=== PATIENT | female | born 1955 | race Caucasian/White ===

== ENCOUNTER 2017-04-10 11:11 | Inpatient (IN) | payer MEDICARE, OTHER ==
[~2017-04-10] VITALS: Ht 158.8 cm; Wt 47.7 kg
[~2017-04-10 11:11] MED LIST: FLUT1DIS3 INH; Ipratropium Bromide NEB; MIRT15TA7 PO; PRED20TA GT; RACE1VIA IH; SERT100T PO; [UNRECOGNIZED DRUG - CODE] MC
--- NOTE | 2017-04-10 11:11 | NUR ---
BBRA FROM HOME FOR WEAKNESS AND HYPOTENSIVE THIS AM. NAD NOTED. PT AAO X4. PLACED IN MONITOR AND GOWN. DR HOUSE AT BEDSIDE FOR EVAL.
[2017-04-10 11:27] LABS: HEMOGLOBIN 13.7 g/dL (11.5-14.8); MEAN CORPUSCULAR HGB CONC 34 g/dl (31.0-36.0); RED BLOOD CELL COUNT(AUTO) 4.55 MIL/uL (4.0-5.2)
[2017-04-10 11:29] LABS: BASOPHILS % (AUTO) 2.4 % (0.0-2.0); HEMATOCRIT 41 % (33-45); LYMPHOCYTES # (AUTO) 1.1 /CMM (0.8-4.8); LYMPHOCYTES % (AUTO) 2.5 % (20.0-44.0); MEAN CORPUSCULAR HEMOGLOBIN 30 PG (26.0-33.0); MEAN CORPUSCULAR VOLUME 89 fL (82-100); MONOCYTES # (AUTO) 1.2 /CMM (0.1-1.30); MONOCYTES % (AUTO) 2.9 % (2.0-12.0); NEUTROPHILS % (AUTO) 92.2 % (43.0-81.0); PLATELET COUNT (AUTO) 588 /CMM (150-450); RDW COEFFICIENT OF VARIATION 13.1 (11.5-15.0)
[2017-04-10] MEDS ORDERED: IV NS 0.9% 1,000 ML BAG IV ONE (11:30)
[2017-04-10 11:31] LABS: WHITE BLOOD COUNT (AUTO) 42.3 K/uL (4.3-11.0)
[2017-04-10 11:45] LABS: CALCIUM, SERUM 7.7 mg/dL (8.5-10.1); CARBON DIOXIDE 38 mmol/L (21-32); CHLORIDE 97 mmol/L (98-107); CREATININE 0.6 mg/dL (0.6-1.3); GLUCOSE 114 mg/dL (74-106); POTASSIUM 3.5 mmol/L (3.5-5.1); SODIUM SERUM 137 mmol/L (136-145); UREA NITROGEN, BLOOD 18 mg/dL (7-18)
[2017-04-10 11:46] LABS: INR 1.15 (0.87-1.13); PROTHROMBIN TIME 12.1 SECS (9.5-12.7)
[2017-04-10 11:50] LABS: TROPONIN I < 0.017 ng/mL (0.00-0.056)
[2017-04-10 12:02] LABS: ALANINE AMINOTRANSFERASE 20 U/L (12-78); ALBUMIN 1.6 g/dL (3.4-5.0); ALKALINE PHOSPHATASE 116 U/L (46-116); ASPARTATE AMINOTRANSFERASE 22 U/L (15-37); BILIRUBIN,DIRECT 0.1 mg/dL (0.0-0.2); BILIRUBIN,TOTAL 0.5 mg/dL (0.2-1.0); TOTAL PROTEIN, SERUM 5.4 g/dL (6.4-8.2)
[2017-04-10 12:26] LABS: BAND % (MANUAL) 4 % (0.0-5.0); LYMPHOCYTES % (MANUAL) 4 % (16-48); METAMYELOCYTES % 1 % (0-0); MONOCYTES % (MANUAL) 2 % (0-11.0); MYELOCYTES % 3 % (0-0); NEUTROPHILS % (MANUAL) 86 (42-76)
[2017-04-10] MEDS ORDERED: IV NS 0.9% 1,000 ML IV PRN (12:28)
[2017-04-10] MEDS ORDERED: VANCOMYCIN 1 GM in IV D5W 250 ML IV SCH (12:30)
[2017-04-10] MEDS ORDERED: ACETAMINOPHEN 325 MG TABLET PO PRN ×2 (12:30→14:30)
[2017-04-10] MEDS ORDERED: MAGNESIUM HYDROXIDE 30 ML UDC PO PRN ×2 (12:30→14:30)
[2017-04-10] MEDS ORDERED: Z GUARD REMEDY 2 OZ OINT TP PRN (12:30)
[2017-04-10] MEDS ORDERED: PIPERACILLIN /TAZOBACTAM 3.375 G in IV D5W 50 ML IV ONE (12:30)
[2017-04-10] MEDS ORDERED: RACEPINEPHRINE HCL 2.25% NEB 0.5 ML VIAL.NEB IH PRN (12:30)
[2017-04-10] MEDS ORDERED: ZOLPIDEM TARTRATE 5 MG TABLET PO PRN ×2 (12:30→14:30)
[2017-04-10] MEDS ORDERED: ONDANSETRON HCL/PF 4 MG/2 ML VIAL IVP PRN ×2 (12:30→14:30)
[2017-04-10] MEDS ORDERED: VANCOMYCIN 1 GM in IV D5W 250 ML IV ONE (12:30)
[2017-04-10] MEDS ORDERED: IV NS 0.9% 1,000 ML IV ONE (12:30)
[2017-04-10] MEDS ORDERED: HYDROCODONE/APAP 5/325MG 1 EACH TABLET PO PRN ×2 (12:30→14:30)
[2017-04-10] MEDS ORDERED: MAG HYDROX/AL HYDROX/SIMETH 30 ML UDC PO PRN ×2 (12:30→14:30)
[2017-04-10] MEDS ORDERED: ALBUTEROL FS 2.5 MG/0.5 ML VIAL.NEB NEB PRN ×2 (13:00→14:30)
[2017-04-10] MEDS ORDERED: methylPREDNISolone SOD SUCC 125 MG/2ML VIAL IV SCH (13:00)
[2017-04-10] MEDS ORDERED: IPRATROPIUM NEB FS 0.5 MG/2.5 ML AMPUL.NEB NEB PRN (13:00)
[2017-04-10] MEDS ORDERED: IPRATROPIUM NEB FS 0.5 MG/2.5 ML AMPUL.NEB NEB SCH (13:30)
[2017-04-10] MEDS ORDERED: RACEPINEPHRINE HCL 2.25% NEB 0.5 ML VIAL.NEB IH SCH (13:30)
[2017-04-10] MEDS ORDERED: ALBUTEROL FS 2.5 MG/0.5 ML VIAL.NEB NEB SCH ×2 (13:30→14:30)
--- NOTE | 2017-04-10 13:34 | NUR ---
PATIENT WILL BE ADMITTED INTO ROOM 119-2. [facility]
--- NOTE | 2017-04-10 13:44 | NUR ---
116-2 [facility]
--- NOTE | 2017-04-10 13:47 | NUR ---
TD/RN REPORT FROM ER REPORT RECEIVED FROM ER NURSE SMITH FOR PT TO BE ADMITTED FOR SYNCOPE UNDER THE CARE OF DR. HANSON. AWAITING FOR PT'S ARRIVAL.
--- NOTE | 2017-04-10 13:47 | NUR ---
REPORT GIVEN TO RENARD PALENCIA FOR BETY
--- NOTE | 2017-04-10 14:50 | NUR ---
TD/RN ADMITTED TO [facility] - ROOM 116#2 PT ARRIVED VIA GURNEY FROM ER. PT A/O X 4, DENIES PAIN, NO ACUTE CHANGE OF CONDITION NOTED. PT PLACED ON 3L O2 VIA N/C SATURATING @ 90%, LUNG SOUNDS VERY DIMINISHED WITH NOTED USE OF ACCESSORY MUSCLE, BREATHING DEEPLY. TELE MONITORING NOTED WITH SINUS TACHY, HR 109. IV SITE FLUSHED, PATIENT WITH NO S/S OF INFECTION. PT ADMITTED FOR SYNCOPE UNDER THE CARE OF DR. HANSON. ADMISSION PROTOCOLS BEING PROCESSED, AWAITING FOR ADMITTING ORDERS. PT IS COMFORTABLE AT THIS TIME. CL WITHIN REACHED AND SAFETY MAINTAINED. ON GOING MONITORING.
[2017-04-10 15:00] VITALS: BP 108/66
[2017-04-10] MEDS: IV NS 0.9% 1,000 ML IV PRN (15:33)
[2017-04-10 16:00] VITALS: BP_SYST 107; BP_SYST 108; BP_SYST 112; BP_DIAS 66; BP_DIAS 67; BP_DIAS 68
[2017-04-10] MEDS: IPRATROPIUM NEB FS 0.5 MG/2.5 ML AMPUL.NEB NEB PRN (16:15)
[2017-04-10] MEDS ORDERED: FLUTICASONE/SALMETEROL DISKUS IH SCH ×2 (17:00)
[2017-04-10] MEDS: ENOXAPARIN SODIUM 40 MG/0.4 ML DISP.SYRIN SQ SCH (17:52)
[2017-04-10] MEDS: PIPERACILLIN /TAZOBACTAM 3.375 G in IV D5W 50 ML IV SCH ×2 (17:52→23:53)
[2017-04-10] MEDS ORDERED: IPRATROPIUM/ALBUTEROL INHALER IH SCH (18:00)
[2017-04-10] MEDS ORDERED: PIPERACILLIN /TAZOBACTAM 3.375 G in IV D5W 50 ML IV SCH (18:00)
[2017-04-10] MEDS ORDERED: FEE PK DOSING 1 MIN EA MC ONE (19:01)
--- NOTE | 2017-04-10 19:16 | NUR ---
TD/RN AM SHIFT END NOTES PT NOTED TO BE MORE RELAXED, NOT USING MUCH OF ACCESSORY MUSCLE FOR BREATHING. NO OTHER ACUTE DISTRESS NOTED SINCE PT WAS ADMITTED THIS AFTERNOON. ALL NEEDS MET. ENDORSED TO PM NURSE TO CONTINUE CARE. CL WITHIN REACHED AND SAFETY MAINTAINED.
[2017-04-10] MEDS: RACEPINEPHRINE HCL 2.25% NEB 0.5 ML VIAL.NEB IH SCH (19:59)
[2017-04-10 20:00] VITALS: BP 112/65
--- NOTE | 2017-04-10 20:00 | NUR ---
RN NOTES RECEIVED AWAKE, ALERT, ORIENTED X 3, RECEIVED FROM AM SHIFT ON NC AT 4 LPM, SATURATING 95%, VERBALIZES SHORTNESS OF BREATH BUT SAYS THIS IS BETTER THAN EARLIER, PIV FLUSHED NO S/SX INFILTRATION; PX MOVES BY SELF IN BED, HOB AT 40 ANGLE; DISCUSSED PLAN OF CARE, EDUCATED ON NEED FOR BREATHING TREATMENT AND ANTIBIOTICS.
--- NOTE | 2017-04-10 21:30 | NUR ---
RN NOTES REPORT TO MANOLO STEVENS RN FOR CONTINUITY OF CARE.
--- NOTE | 2017-04-10 21:30 | NUR ---
RN NOTES PX HAD 1 MOD LARGE DIARRHEA, CLEANED AND PERICARE RENDERED; CALLED DR FRANCISCA CESAR MADE HIM AWARE OF DIARRHEA EPISODE AND THAT PX HAD RECENTLY TAKEN ANTIBIOTICS. NEW ORDERS MADE.
[2017-04-10] MEDS ORDERED: CHOLESTYRAMINE/ASPARTAME 4 G/PKT PACKET PO SCH (22:00)
[2017-04-10] MEDS ORDERED: MIRTAZAPINE 15 MG TABLET PO SCH (22:00)
[2017-04-10] MEDS: MIRTAZAPINE 15 MG TABLET PO SCH (22:19)
[2017-04-10] MEDS ORDERED: CHOLESTYRAMINE/ASPARTAME 4 G/PKT PACKET ONE (22:25)
[2017-04-10] MEDS ORDERED: VANCOMYCIN HCL 125 MG/2.5 ML ORAL.SUSP ONE ×2 (23:53)
[2017-04-10] MEDS: VANCOMYCIN HCL 125 MG/2.5 ML ORAL.SUSP PO SCH (23:55)
[2017-04-11] VITALS: BP 132/80
[2017-04-11] MEDS: VANCOMYCIN 1 GM in IV D5W 250 ML IV SCH ×2 (00:19→13:16)
[2017-04-11] MEDS: RACEPINEPHRINE HCL 2.25% NEB 0.5 ML VIAL.NEB IH SCH ×4 (01:01→19:26)
[2017-04-11] MEDS: IPRATROPIUM NEB FS 0.5 MG/2.5 ML AMPUL.NEB NEB PRN ×6 (01:01→22:53)
[2017-04-11 04:00] VITALS: BP 115/55
--- NOTE | 2017-04-11 04:43 | NUR ---
RN NOTES 0440 O2 SATURATION 84% ON 4-5 LITER O2 VIA NC. PATIENT HAS HX COPD;MOUTH BREATHER. BREATHING TREATMENT GIVEN 0101; HR 100-105; SPOKE TO RT JUNIOR; WILL CHANGE TO SIMPLE MASK 5L O2. O2 SAT 88-89% ON SIMPLE MASK
[2017-04-11] MEDS: PIPERACILLIN /TAZOBACTAM 3.375 G in IV D5W 50 ML IV SCH ×3 (05:39→17:31)
[2017-04-11] MEDS: VANCOMYCIN HCL 125 MG/2.5 ML ORAL.SUSP PO SCH ×3 (05:39→17:31)
[2017-04-11] MEDS ORDERED: PANTOPRAZOLE 40 MG TABLET.DR PO SCH (07:30)
[2017-04-11 07:42] LABS: EOSINOPHILS % (AUTO) 0.1 % (0.0-6.0); HEMATOCRIT 41 % (33-45); HEMOGLOBIN 13.2 g/dL (11.5-14.8); LYMPHOCYTES # (AUTO) 1.4 /CMM (0.8-4.8); LYMPHOCYTES % (AUTO) 3.5 % (20.0-44.0); MEAN CORPUSCULAR HEMOGLOBIN 30 PG (26.0-33.0); MEAN CORPUSCULAR HGB CONC 33 g/dl (31.0-36.0); MEAN CORPUSCULAR VOLUME 92 fL (82-100); MONOCYTES # (AUTO) 1.5 /CMM (0.1-1.30); MONOCYTES % (AUTO) 3.7 % (2.0-12.0); NEUTROPHILS # (AUTO) 37.1 /CMM (1.8-8.9); NEUTROPHILS % (AUTO) 92.7 % (43.0-81.0); PLATELET COUNT (AUTO) 570 /CMM (150-450); RDW COEFFICIENT OF VARIATION 14.7 (11.5-15.0)
[2017-04-11 07:53] LABS: CALCIUM, SERUM 7.7 mg/dL (8.5-10.1); CREATININE 0.4 mg/dL (0.6-1.3); POTASSIUM 3.2 mmol/L (3.5-5.1)
[2017-04-11 08:00] VITALS: BP 101/69
--- NOTE | 2017-04-11 08:00 | NUR ---
TD/RN AM SHIFT INITIAL NOTES RECEIVED PT ASLEEP IN BED, AROUSEABLE. PT A/O X 4, DENIES ANY SYMPTOMS. NO ACUTE RESPIRATORY DISTRESS NOTED, NO FEVER. PT ON SIMPLE MASK WITH 9L OF O2, RESPIRATIONS UNLABORED, NOT USING ACCESSORY MUSCLE UNLIKE YESTERDAY, LUNG SOUNDS LESS DIMINISHED, PT VERBALIZED FEELING MUCH BETTER, BREATHING BETTER THAN YESTERDAY. ON TELE MONITORING WITH SINUS TACHY, HR 102. WITH ON GOING IV INFUSION OF NS @ 75CC/HR, IV SITE PATENT WITH NO S/S OF INFECTION. UPDATE DR. HANSON OF PT'S CONDITION LAST NIGHT, EXAMINED PT, AWARE OF DECREASED OF WBC 40, WITH NEW ORDER TO D/C QUESTRAN, NOTED AND CARRIED. PT IS COMFORTABLE, CL WITHIN REACHED. ON GOING MONITORING.
[2017-04-11] MEDS: SERTRALINE HCL 50 MG TABLET PO SCH (08:35)
[2017-04-11] MEDS: PANTOPRAZOLE 40 MG TABLET.DR PO SCH (08:36)
[2017-04-11] MEDS: methylPREDNISolone SOD SUCC 125 MG/2ML VIAL IV SCH (08:36)
[2017-04-11 09:28] LABS: BAND % (MANUAL) 1 % (0.0-5.0); EOSINOPHILS % (MANUAL) 1 % (0-4); LYMPHOCYTES % (MANUAL) 4 % (16-48); MONOCYTES % (MANUAL) 4 % (0-11.0); MYELOCYTES % 2 % (0-0); NEUTROPHILS % (MANUAL) 88 (42-76)
--- NOTE | 2017-04-11 09:30 | NUR ---
TD/RN ROUNDS - DR. RIVERA UPDATED PT'S CONDITION. PT SEEN & EXAMINED BY DR. RIVERA. NO NEW ORDERS RECEIVED AT THIS TIME. MONITORING CONTINUED.
[2017-04-11] MEDS: IV NS 0.9% 1,000 ML IV PRN (09:49)
--- NOTE | 2017-04-11 10:00 | NUR ---
TD/RN UA & CS URINE SPECIMEN COLLECTED VIA STRAIGHT CATHETERIZATION FOR UA & CS. LAB NOTIFIED FOR SPECIMEN PICK-UP.
[2017-04-11] MEDS ORDERED: POTASSIUM CHLORIDE 20 MEQ TAB.PRT.SR PO ONE (11:00)
[2017-04-11 11:41] LABS: APPEARANCE,URINE SL CLOUDY (CLEAR); BILIRUBIN,URINE NEGATIVE (NEGATIVE); BLOOD, URINE NEGATIVE Ery/uL (NEGATIVE); COLOR,URINE YELLOW (YELLOW); KETONES,URINE NEGATIVE (NEGATIVE); LEUKOCYTE ESTERASE ,URINE NEGATIVE (NEGATIVE); NITRITE, URINE NEGATIVE (NEGATIVE); PH,URINE 5.5 (5.0-8.0); PROTEIN,URINE NEGATIVE (NEGATIVE); UGLUCOSE NEGATIVE (NEGATIVE); UROBILINOGEN,URINE 0.2 EU/dL (0.2)
[2017-04-11 12:00] VITALS: BP 116/69
[2017-04-11 16:00] VITALS: BP 116/71
--- NOTE | 2017-04-11 17:00 | NUR ---
TD/RN AFTERNOON ROUNDS PT DESATURATES WHEN OFF O2 DOWN TO 85%, COMPLAINING ON SOB. ON 9L O2 VIA SIMPLE MASK. PM CARE PROVIDED, CLOSELY MONITORING.
[2017-04-11] MEDS: RACEPINEPHRINE HCL 2.25% NEB 0.5 ML VIAL.NEB IH PRN ×2 (17:08→22:53)
[2017-04-11] MEDS: LACTOBACILLUS RHAMNOSUS GG 1 EACH CAP.SPRINK PO SCH (17:31)
--- NOTE | 2017-04-11 18:59 | NUR ---
TD/RN SOB - STAT ABG PT COMPLAINT OF SOB, SATURATING @ 80s. STAT ABG ORDERED. RESPIRATORY THERAPIST CALLED IN, PT PLACED ON NON-REBREATHER MASK. CLOSELY MONITORING. Addendum: 04/11/17 at 1915 by KORY GONCALVES RN ADDENDUM: PT SATURATING IN THE HIGH 80s.
--- NOTE | 2017-04-11 19:10 | NUR ---
TD/RN AM SHIFT END NOTES ABG BEING DRAWN. PT ON NON-BREATHER MASK. NEEDS MET. PT ENDORSED TO PM NURSE TO CONTINUE CARE. CL WITHIN REACHED AND SAFETY MAINTAINED.
[2017-04-11 19:18] LABS: ABG BASE EXCESS 3.6 mmol/L; ABG OXYGEN SATURATION 98.4 % (92.0-98.5); ABG PCO2 61.1 mmHg (35.0-45.0); ABG PH 7.325 (7.350-7.450); ABG PO2 155.3 mmHg (75.0-100.0); COHb 0.6 % (0.5-1.5); MetHb 0.7 % (0.0-1.5); O2Hb 97.1 % (94.0-97.0); SITE, ABG Right Radial; VENT MODE, BG NRB
--- NOTE | 2017-04-11 21:00 | NUR ---
RN NOTE RECEIVED ABG FROM RESPIRATORY AND NOTIFIED DR FRANCISCA CESAR. DR CESAR ORDERED BIPAP AND ABG IN 30 MINUTES, ALSO STAT XRAY. READBACK ORDERS PERFORMED AND ORDERS PUT IN.
--- NOTE | 2017-04-11 22:00 | NUR ---
RN NOTE SPOKE WITH PT AND EXPLAINED THE USE OF BIPAP, BUT PT REFUSED. NOTIFIED RT TO FURTHER EXPLAIN USE OF BIPAP, BUT PT STILL REFUSED. NOTIFIED DR FRANCISCA CESAR. DR CESAR ORDERED ONE TIME DOSE OF LASIX 20MG IV AND SOLU-MEDROL 125MG IV. READBACK ORDERS PERFORMED AND ORDERS PUT IN.
[2017-04-11] MEDS: MIRTAZAPINE 15 MG TABLET PO SCH (22:11)
[2017-04-11] MEDS: ENOXAPARIN SODIUM 40 MG/0.4 ML DISP.SYRIN SQ SCH (22:12)
[2017-04-11] MEDS ORDERED: FUROSEMIDE 20 MG/2 ML VIAL ONE (23:14)
[2017-04-11] MEDS: FUROSEMIDE 20 MG/2 ML VIAL IV SCH ×2 (23:24→23:30)
[2017-04-11] MEDS ORDERED: methylPREDNISolone SOD SUCC 125 MG/2ML VIAL IV ONE (23:30)
[2017-04-11 23:37] VITALS: BP 113/65
[2017-04-12] VITALS (8 sets, daily range): BP systolic 117–157; BP diastolic 53–84
[2017-04-12] MEDS: VANCOMYCIN HCL 125 MG/2.5 ML ORAL.SUSP PO SCH ×5 (00:07→23:57)
[2017-04-12] MEDS: PIPERACILLIN /TAZOBACTAM 3.375 G in IV D5W 50 ML IV SCH ×4 (00:08→17:42)
[2017-04-12] MEDS: VANCOMYCIN 1 GM in IV D5W 250 ML IV SCH ×3 (01:09→20:21)
[2017-04-12] MEDS: RACEPINEPHRINE HCL 2.25% NEB 0.5 ML VIAL.NEB IH SCH ×4 (01:30→19:05)
[2017-04-12] MEDS: RACEPINEPHRINE HCL 2.25% NEB 0.5 ML VIAL.NEB IH PRN ×2 (02:32→10:46)
[2017-04-12] MEDS: IPRATROPIUM NEB FS 0.5 MG/2.5 ML AMPUL.NEB NEB PRN ×4 (02:32→19:05)
[2017-04-12] MEDS: IV NS 0.9% 1,000 ML IV PRN (04:29)
--- NOTE | 2017-04-12 06:55 | NUR ---
RN CLOSING NOTE PT REMAINS IN NO ACUTE DISTRESS IN BED. PT HAD CHANGE OF CONDITION DURING BEGINNING OF SHIFT. PT WAS IN RESPIRATORY DISTRESS. PT MASK WAS CHANGED FROM SIMPLE MASK @ 5LPM TO NON REBREATHER @ 10LPM. PT TOLERATING NON REBREATHER WELL WITH O2 SAT @ 99%. ALL NEEDS MET ALL ORDERS CARRIED OUT. WILL ENDORSE REPORT TO AM RN FOR CONTINUITY OF CARE.
[2017-04-12 07:11] LABS: BASOPHILS # (AUTO) 0.1 /CMM (0.0-0.2); BASOPHILS % (AUTO) 0.2 % (0.0-2.0); HEMATOCRIT 40 % (33-45); HEMOGLOBIN 13.2 g/dL (11.5-14.8); LYMPHOCYTES % (AUTO) 3.4 % (20.0-44.0); MEAN CORPUSCULAR HEMOGLOBIN 31 PG (26.0-33.0); MEAN CORPUSCULAR HGB CONC 33 g/dl (31.0-36.0); MEAN CORPUSCULAR VOLUME 93 fL (82-100); MONOCYTES # (AUTO) 0.4 /CMM (0.1-1.30); MONOCYTES % (AUTO) 1.4 % (2.0-12.0); NEUTROPHILS # (AUTO) 27.6 /CMM (1.8-8.9); PLATELET COUNT (AUTO) 657 /CMM (150-450); RDW COEFFICIENT OF VARIATION 14.8 (11.5-15.0); RED BLOOD CELL COUNT(AUTO) 4.33 MIL/uL (4.0-5.2); WHITE BLOOD COUNT (AUTO) 29.1 K/uL (4.3-11.0)
[2017-04-12 07:32] LABS: CALCIUM, SERUM 7.7 mg/dL (8.5-10.1); CREATININE 0.5 mg/dL (0.6-1.3)
[2017-04-12] MEDS: SERTRALINE HCL 50 MG TABLET PO SCH (07:49)
[2017-04-12] MEDS: PANTOPRAZOLE 40 MG TABLET.DR PO SCH (07:49)
[2017-04-12] MEDS: methylPREDNISolone SOD SUCC 125 MG/2ML VIAL IV SCH ×3 (07:49→17:42)
[2017-04-12] MEDS: LACTOBACILLUS RHAMNOSUS GG 1 EACH CAP.SPRINK PO SCH ×2 (07:49→17:42)
[2017-04-12 07:50] LABS: BAND % (MANUAL) 2 % (0.0-5.0); LYMPHOCYTES % (MANUAL) 4 % (16-48); MONOCYTES % (MANUAL) 3 % (0-11.0); NEUTROPHILS % (MANUAL) 91 (42-76)
--- NOTE | 2017-04-12 08:00 | NUR ---
manager agriculture received pt in bed awake orient x3, denies of any pain, on oxygen diminished lung sounds, on 10L non rebreather sat 91% breathing treatment on by RT, pt st on montor hr 100s sbp stable, active bowl sounds, iv access patent infusing iv fluids as ordered, turn and repoition in bed, fall precautions taken call light w/ in reach will continue to monitor.
--- NOTE | 2017-04-12 12:00 | NUR ---
school curriculum developer dr. RIVERA at bedside ordered ct scan w/ contrast and to keep monitoring pt no other new ordres.
--- NOTE | 2017-04-12 15:20 | NUR ---
multicut line operator pt in bed after breathing treatment o2 sat went from 88% to 97 pt is sleeping at the moment, refuses turn and repsotiion at times, education done pt still refuses to turn and reposition at times.
--- NOTE | 2017-04-12 20:00 | NUR ---
RN NOTES RECEIVED PT AWAKE, ALERT, ORIENTED X 3, ON NON REBREATHER MASK, TACHYPNEIC, ON CONTINUOUS PULSE OXIMETER, SATURATING 94-97%, PX SAYS SHE HAS BEEN TACHYPNEIC FOR DAYS BUT THIS IS BETTER; PX DENIED PAIN, N/V; MOVES INDEPENDENTLY IN BED; PIV CHECKED FLUSHED WITH SALINE NO INFILTRATION; DISCUSSED PLAN OF CARE; HOB AT 40 ANGLE.
[2017-04-12] MEDS: ENOXAPARIN SODIUM 40 MG/0.4 ML DISP.SYRIN SQ SCH (20:22)
--- NOTE | 2017-04-12 20:30 | NUR ---
RN NOTES PX STILL HAS SHORTNESS OF BREATH, BUT NOTED TO HAVE INCREASED RESP, NOW AT 30-35, SATURATING 88-90%, CALLED DR. FRANCISCA CESAR, INFORMED OF PATIENT CONDITION. PATIENT AGREED TO HAVE BIPAP MACHINE. DR. CESAR ORDERED FOR BIPAP MACHINE AND TRANSFER TO ICU.
--- NOTE | 2017-04-12 21:00 | NUR ---
RN NOTES PX CONTINUED TO BE TACHYPNEIC, SATURATING 88-94%, USE OF ACCESSORY MS OF RESP, KEPT HOB AT 45 ANGLE; PX INFORMED OF OPTION OF BIPAP MASK WHICH WAS ORDERED SINCE YESTERDAY BUT PATIENT REFUSED.
[2017-04-12] MEDS: MIRTAZAPINE 15 MG TABLET PO SCH (21:36)
--- NOTE | 2017-04-12 23:00 | NUR ---
RN NOTES TRANSFERED PX TO ICU ROOM 258 VIA ACLS PROTOCOL, STILL WITH TACHYPNEA; PIV STILL INTACT; PX REFUSED ABG, REFUSE REPOSITIONING, REFUSED SKIN CHECK DESPITE EDUCATION. DR. FRANCISCA CESAR AT BEDSIDE TALKING TO PATIENT. REPORT GIVEN TO [facility] SKIN TOGGLER. ALL BELONGINGS TRANSFERRED TO ROOM WELL.
--- NOTE | 2017-04-12 23:14 | NUR ---
TECHNICAL EDUCATION TEACHER; RECEIVED PT FROM [facility], DUE TO RESPIRATORY DISTRESS, PT NEEDS BIPAP, PT REFUSED ABG PER BRIDGETTE/RN. FRANCISCA CESAR AT BEDSIDE EXPLAINED VERY WELL TO PT IF BIPAP DOESN'T WORK THEN NEXT STEP WILL BE INTUBATION, PT UNDERSTANDS WELL. WILL DO ABG IN 30 MINT.ON BIPAP, SATURATING 90% WITH SOME DISTRESS. SHALLOW RESPIRATION. PT IS AAO X3, ABLE TO KNOWN NEEDS WELL. PER PREVIOUS NURSE THAT PT IS NON COMPLIANT WITH SOME MEDICAL CARE. IV FLUID NS AT 75 ML/HR ONGOING. IV ACCESS RIGHT HAND # 22 INTACT. KEEP CLOSE MONITORING....
[2017-04-13] VITALS (52 sets, daily range): BP systolic 100–159; BP diastolic 54–118
[2017-04-13 00:03] LABS: ABG OXYGEN SATURATION 94.3 % (92.0-98.5); ABG PCO2 83.2 mmHg (35.0-45.0); ABG PH 7.309 (7.350-7.450); ABG PO2 72.7 mmHg (75.0-100.0); AaDO2 557.1 mmHg; COHb 0.4 % (0.5-1.5); MetHb 0.5 % (0.0-1.5); O2Hb 93.5 % (94.0-97.0); PEEP,BG 5 cm H2O; SITE, ABG Right Radial; VENT MODE, BG BIPAP
[2017-04-13] MEDS: PIPERACILLIN /TAZOBACTAM 3.375 G in IV D5W 50 ML IV SCH ×5 (00:03→23:48)
--- NOTE | 2017-04-13 00:42 | NUR ---
ENERGY PROFESSIONAL: POST BIPAP ABG DONE, RESULTS RELAYED TO FRANCISCA CESAR,C02 LEVEL VERY HIGH, WANTS TO DO ANOTHER ABG AGAIN, AWAITING RT TO DO ABG.....
[2017-04-13 01:08] LABS: ABG BASE EXCESS 10.5 mmol/L; ABG OXYGEN SATURATION 90.1 % (92.0-98.5); ABG PCO2 81.4 mmHg (35.0-45.0); ABG PH 7.311 (7.350-7.450); ABG PO2 59.1 mmHg (75.0-100.0); AaDO2 425.8 mmHg; COHb 0.8 % (0.5-1.5); MetHb 0.4 % (0.0-1.5); PEEP,BG 5 cm H2O; SITE, ABG Right Radial; VENT MODE, BG bipap
[2017-04-13] MEDS: IPRATROPIUM NEB FS 0.5 MG/2.5 ML AMPUL.NEB NEB PRN (01:18)
[2017-04-13] MEDS: RACEPINEPHRINE HCL 2.25% NEB 0.5 ML VIAL.NEB IH SCH ×4 (01:18→20:17)
--- NOTE | 2017-04-13 03:35 | NUR ---
TRAINING ASSOCIATE; CALL RECEIVED FROM FRANCISCA CESAR, ABG AT 0600, POSSIBLE NEEDS INTUBATION IF CO2 LEVEL NOT IMPROVED WITH BIPAP. KEEP MONITORING... 2ND ABG RESULTS RELAYED TO FRANCISCA CESRA EARLIER.
[2017-04-13 04:58] LABS: BASOPHILS % (AUTO) 0.1 % (0.0-2.0); EOSINOPHILS % (AUTO) 0.1 % (0.0-6.0); HEMATOCRIT 41 % (33-45); HEMOGLOBIN 13.4 g/dL (11.5-14.8); LYMPHOCYTES # (AUTO) 1.1 /CMM (0.8-4.8); LYMPHOCYTES % (AUTO) 2.9 % (20.0-44.0); MEAN CORPUSCULAR HEMOGLOBIN 30 PG (26.0-33.0); MEAN CORPUSCULAR HGB CONC 32 g/dl (31.0-36.0); MEAN CORPUSCULAR VOLUME 93 fL (82-100); MONOCYTES # (AUTO) 0.9 /CMM (0.1-1.30); MONOCYTES % (AUTO) 2.3 % (2.0-12.0); NEUTROPHILS # (AUTO) 36.6 /CMM (1.8-8.9); NEUTROPHILS % (AUTO) 94.6 % (43.0-81.0); PLATELET COUNT (AUTO) 682 /CMM (150-450); RDW COEFFICIENT OF VARIATION 14.3 (11.5-15.0); RED BLOOD CELL COUNT(AUTO) 4.45 MIL/uL (4.0-5.2)
[2017-04-13] MEDS: VANCOMYCIN 1 GM in IV D5W 250 ML IV SCH ×3 (05:09→20:49)
[2017-04-13] MEDS: IV NS 0.9% 1,000 ML IV PRN (05:13)
[2017-04-13 05:25] LABS: WHITE BLOOD COUNT (AUTO) 38.7 K/uL (4.3-11.0)
[2017-04-13 05:41] LABS: CALCIUM, SERUM 8.1 mg/dL (8.5-10.1); CREATININE 0.5 mg/dL (0.6-1.3); POTASSIUM 3.6 mmol/L (3.5-5.1)
[2017-04-13] MEDS: VANCOMYCIN HCL 125 MG/2.5 ML ORAL.SUSP PO SCH ×2 (05:59→11:00)
[2017-04-13 06:02] LABS: ABG BASE EXCESS 10.1 mmol/L; ABG OXYGEN SATURATION 92.3 % (92.0-98.5); ABG PCO2 70.9 mmHg (35.0-45.0); ABG PH 7.353 (7.350-7.450); ABG PO2 64.5 mmHg (75.0-100.0); AaDO2 577.6 mmHg; COHb 0.5 % (0.5-1.5); MetHb 0.6 % (0.0-1.5); O2Hb 91.3 % (94.0-97.0); PEEP,BG 5 cm H2O; SITE, ABG Right Radial; VENT MODE, BG BIPAP
--- NOTE | 2017-04-13 06:12 | NUR ---
YARD COORDINATOR: 0600 ABG DONE, RESULTS RELAYED TO FRANCISCA CESAR VIA PHONE, CO2 IMPROVING, NO NEW ORDERS AT THIS TIME. WILL ENDORSE CARE TO NEXT SHIFT.
[2017-04-13 06:24] LABS: BAND % (MANUAL) 2 % (0.0-5.0); LYMPHOCYTES % (MANUAL) 4 % (16-48); MONOCYTES % (MANUAL) 3 % (0-11.0); NEUTROPHILS % (MANUAL) 91 (42-76)
--- NOTE | 2017-04-13 07:30 | NUR ---
PORT CRANE OPERATOR RECEIVED PATIENT AWAKE ON BIPAP AFEBRILE WITH ON GOING IVF INFUSING WELL PATIENT HAS LABORED BREATHING, RESTLESSNESS NOTED BIPAP SETTING CHANGED, 02 DECREASE TO 55% TACHYPNEIC NOTED AND DESATURATION NOTED, PLACE BACK TO 100"% NO OTHER COMPLAINTS AT THIS TIME
--- NOTE | 2017-04-13 08:00 | NUR ---
TREATMENT COUNSELOR ABG ORDERED BY DR. RIVERA, RESULTS GIVEN TO ORDERED TO MAINTAIN PATIENT ON BIPAP CT OF THE CHEST WITH CONTRAST POSTPONED FOR THE MEANTIME, WILL PUSH THROUGH ONCE PATIENT IS STABLE
[2017-04-13] MEDS: PANTOPRAZOLE 40 MG TABLET.DR PO SCH (08:05)
[2017-04-13] MEDS: SERTRALINE HCL 50 MG TABLET PO SCH (08:23)
[2017-04-13] MEDS: methylPREDNISolone SOD SUCC 125 MG/2ML VIAL IV SCH ×2 (08:23→16:08)
[2017-04-13] MEDS: LACTOBACILLUS RHAMNOSUS GG 1 EACH CAP.SPRINK PO SCH ×2 (08:23→16:08)
[2017-04-13] MEDS ORDERED: LORAZEPAM 1 MG TABLET ONE (10:24)
[2017-04-13] MEDS: LEVOFLOXACIN 500 MG /D5W 100ML 500 MG in PREMIX 1 EA IV SCH (16:08)
[2017-04-13] MEDS: ENOXAPARIN SODIUM 40 MG/0.4 ML DISP.SYRIN SQ SCH (20:41)
[2017-04-13] MEDS: MIRTAZAPINE 15 MG TABLET PO SCH (20:42)
--- NOTE | 2017-04-13 23:08 | NUR ---
METALS ANALYST; pt comfortably sleeping, no dsitress. v/s stable. saturating 98$
[2017-04-14] VITALS (53 sets, daily range): BP systolic 101–153; BP diastolic 57–90
[2017-04-14] MEDS: RACEPINEPHRINE HCL 2.25% NEB 0.5 ML VIAL.NEB IH SCH ×4 (01:52→19:54)
[2017-04-14] MEDS: IV NS 0.9% 1,000 ML IV PRN ×3 (03:02→20:09)
[2017-04-14] MEDS: RACEPINEPHRINE HCL 2.25% NEB 0.5 ML VIAL.NEB IH PRN (04:10)
[2017-04-14 04:56] LABS: BASOPHILS % (AUTO) 0.1 % (0.0-2.0); HEMATOCRIT 37 % (33-45); HEMOGLOBIN 12.1 g/dL (11.5-14.8); MEAN CORPUSCULAR HEMOGLOBIN 30 PG (26.0-33.0); MEAN CORPUSCULAR HGB CONC 33 g/dl (31.0-36.0); MEAN CORPUSCULAR VOLUME 93 fL (82-100); MONOCYTES # (AUTO) 0.9 /CMM (0.1-1.30); MONOCYTES % (AUTO) 3.7 % (2.0-12.0); NEUTROPHILS # (AUTO) 22.2 /CMM (1.8-8.9); NEUTROPHILS % (AUTO) 92.2 % (43.0-81.0); PLATELET COUNT (AUTO) 662 /CMM (150-450); RDW COEFFICIENT OF VARIATION 13.8 (11.5-15.0); WHITE BLOOD COUNT (AUTO) 24.1 K/uL (4.3-11.0)
[2017-04-14 05:09] LABS: CALCIUM, SERUM 8.3 mg/dL (8.5-10.1); CREATININE 0.5 mg/dL (0.6-1.3); POTASSIUM 3.4 mmol/L (3.5-5.1)
[2017-04-14] MEDS: VANCOMYCIN 1 GM in IV D5W 250 ML IV SCH ×3 (05:15→20:07)
[2017-04-14] MEDS: PIPERACILLIN /TAZOBACTAM 3.375 G in IV D5W 50 ML IV SCH ×4 (06:16→23:29)
[2017-04-14 07:40] LABS: BAND % (MANUAL) 1 % (0.0-5.0); LYMPHOCYTES % (MANUAL) 6 % (16-48); MONOCYTES % (MANUAL) 8 % (0-11.0); NEUTROPHILS % (MANUAL) 85 (42-76)
[2017-04-14 08:20] LABS: ABG BASE EXCESS 17.8 mmol/L; ABG OXYGEN SATURATION 90.4 % (92.0-98.5); ABG PCO2 70.1 mmHg (35.0-45.0); ABG PH 7.432 (7.350-7.450); ABG PO2 55.6 mmHg (75.0-100.0); AaDO2 295.1 mmHg; COHb 0.7 % (0.5-1.5); MetHb 0.5 % (0.0-1.5); O2Hb 89.3 % (94.0-97.0); SITE, ABG Right Radial; VENT MODE, BG BIPAP 22/10 R22
--- NOTE | 2017-04-14 08:51 | NUR ---
PATIENT REMOVED FROM BIPAP POST ABG RESULTS. PLACED ON NRB MASK, APPEARS COMFORTABLE AT THIS TIME
[2017-04-14] MEDS: PANTOPRAZOLE 40 MG TABLET.DR PO SCH (09:17)
[2017-04-14] MEDS: LACTOBACILLUS RHAMNOSUS GG 1 EACH CAP.SPRINK PO SCH ×2 (09:17→16:39)
[2017-04-14] MEDS: SERTRALINE HCL 50 MG TABLET PO SCH (09:17)
[2017-04-14] MEDS: methylPREDNISolone SOD SUCC 125 MG/2ML VIAL IV SCH ×2 (09:17→16:39)
[2017-04-14] MEDS ORDERED: POTASSIUM CHLORIDE 20 MEQ POWDER PACKET PO ONE (10:30)
[2017-04-14 10:38] LABS: ABG BASE EXCESS 11.8 mmol/L; ABG OXYGEN SATURATION 90.8 % (92.0-98.5); ABG PCO2 61.8 mmHg (35.0-45.0); ABG PH 7.416 (7.350-7.450); ABG PO2 57.7 mmHg (75.0-100.0); AaDO2 447.8 mmHg; COHb 0.9 % (0.5-1.5); MetHb 0.6 % (0.0-1.5); O2Hb 89.4 % (94.0-97.0); SITE, ABG Right Radial; VENT MODE, BG NON REBREATHER
[2017-04-14] MEDS: Z GUARD REMEDY 2 OZ OINT TP PRN (10:50)
[2017-04-14] MEDS: Z GUARD REMEDY 4 OZ OINT TP SCH (10:53)
--- NOTE | 2017-04-14 13:48 | NUR ---
DRAWING TENDER PATIENT NOTED TO HAVE 3 LIQUID STOOLS DURING THE LAST 5 HOURS. PATIENT HAS A HIGH WHITE COUNT. PHYSICAL METEOROLOGIST MADE AWARE. RECEIVED MD ORDERS TO SEND STOOL FOR C.DIFF.
[2017-04-14] MEDS: LEVOFLOXACIN 500 MG /D5W 100ML 500 MG in PREMIX 1 EA IV SCH (16:38)
[2017-04-14] MEDS ORDERED: TUBERCULIN,PURIF.PROT.DERIV. 5 TU/0.1 ML VIAL ID ONE (18:00)
--- NOTE | 2017-04-14 20:05 | NUR ---
PMO BUSINESS ANALYST ADMINISTERED TB TEST TO LEFT FOREARM; NOTED AREA RAISED AT ADMINISTRATION SITE.
[2017-04-14] MEDS: ENOXAPARIN SODIUM 40 MG/0.4 ML DISP.SYRIN SQ SCH (20:09)
[2017-04-14] MEDS: MIRTAZAPINE 15 MG TABLET PO SCH (20:11)
--- NOTE | 2017-04-14 20:31 | NUR ---
HEAD OF TRAINING AND DEVELOPMENT PT PLACED ON BIPAP BY RT; PT NOTED TO W/SATURATION IN THE 80s. PT STATES SHE IS HAVING TROUBLE BREATHING.
--- NOTE | 2017-04-14 20:31 | NUR ---
PT COMPLAINING OF HAVING TROUBLE BREATHING. PLACED ON BIPAP. RN NOTIFIED. WILL CONTINUE TO MONITOR.
[2017-04-15] VITALS (40 sets, daily range): BP systolic 110–156; BP diastolic 37–79
[2017-04-15] MEDS: RACEPINEPHRINE HCL 2.25% NEB 0.5 ML VIAL.NEB IH SCH ×4 (01:23→19:38)
[2017-04-15] MEDS: VANCOMYCIN 1 GM in IV D5W 250 ML IV SCH ×3 (04:25→21:00)
[2017-04-15 04:35] LABS: BASOPHILS % (AUTO) 0.2 % (0.0-2.0); HEMATOCRIT 35 % (33-45); HEMOGLOBIN 11.5 g/dL (11.5-14.8); LYMPHOCYTES # (AUTO) 0.8 /CMM (0.8-4.8); LYMPHOCYTES % (AUTO) 3.2 % (20.0-44.0); MEAN CORPUSCULAR HEMOGLOBIN 30 PG (26.0-33.0); MEAN CORPUSCULAR HGB CONC 33 g/dl (31.0-36.0); MEAN CORPUSCULAR VOLUME 92 fL (82-100); MONOCYTES # (AUTO) 0.6 /CMM (0.1-1.30); MONOCYTES % (AUTO) 2.4 % (2.0-12.0); NEUTROPHILS # (AUTO) 23.5 /CMM (1.8-8.9); NEUTROPHILS % (AUTO) 94.2 % (43.0-81.0); PLATELET COUNT (AUTO) 653 /CMM (150-450); RDW COEFFICIENT OF VARIATION 13.5 (11.5-15.0); RED BLOOD CELL COUNT(AUTO) 3.82 MIL/uL (4.0-5.2)
[2017-04-15 04:42] LABS: CALCIUM, SERUM 8.3 mg/dL (8.5-10.1); CREATININE 0.5 mg/dL (0.6-1.3); MAGNESIUM 1.7 mg/dL (1.8-2.4)
[2017-04-15 05:02] LABS: BAND % (MANUAL) 2 % (0.0-5.0); LYMPHOCYTES % (MANUAL) 5 % (16-48); MONOCYTES % (MANUAL) 4 % (0-11.0); NEUTROPHILS % (MANUAL) 89 (42-76)
[2017-04-15] MEDS: PIPERACILLIN /TAZOBACTAM 3.375 G in IV D5W 50 ML IV SCH ×4 (06:05→23:34)
[2017-04-15] MEDS: SERTRALINE HCL 50 MG TABLET PO SCH (09:03)
[2017-04-15] MEDS: Z GUARD REMEDY 2 OZ OINT TP PRN ×2 (09:03→09:12)
[2017-04-15] MEDS: LACTOBACILLUS RHAMNOSUS GG 1 EACH CAP.SPRINK PO SCH ×2 (09:03→16:59)
[2017-04-15] MEDS: methylPREDNISolone SOD SUCC 125 MG/2ML VIAL IV SCH (09:04)
[2017-04-15] MEDS: PANTOPRAZOLE 40 MG TABLET.DR PO SCH (09:13)
[2017-04-15] MEDS: Z GUARD REMEDY 4 OZ OINT TP SCH (09:13)
[2017-04-15] MEDS ORDERED: LEVALBUTEROL HCL NEB 1.25 MG/0.5 ML VIAL.NEB NEB SCH (09:30)
[2017-04-15 09:56] LABS: ABG BASE EXCESS 18.8 mmol/L; ABG OXYGEN SATURATION 93.8 % (92.0-98.5); ABG PCO2 72.9 mmHg (35.0-45.0); ABG PH 7.427 (7.350-7.450); ABG PO2 66.3 mmHg (75.0-100.0); AaDO2 573.8 mmHg; COHb 0.7 % (0.5-1.5); MetHb 0.8 % (0.0-1.5); O2Hb 92.4 % (94.0-97.0); SITE, ABG Right Brachial; VENT MODE, BG 15 LPM VIA NRB
--- NOTE | 2017-04-15 09:56 | NUR ---
RT 0846 - PLACED PT ON 15 LPM VIA NRB PER MD ORDER. ABG IN AN HOUR. PT TOLERATING WELL AT THIS TIME, SpO2 97%, HR 99. NO SOB NOTED AT THIS TIME. WILL CONTINUE TO MONITOR THE PATIENT CLOSELY. 0956 - POST ABG RESULTS SHOWN TO DR. RIVERA. KEEP PT ON 15 LPM VIA NRB. PT AWAKE AND RESPONSIVE. WILL CONTINUE TO MONITOR THE PATIENT FOR ANY CHANGES.
[2017-04-15] MEDS ORDERED: POTASSIUM CHLORIDE 20 MEQ TAB.PRT.SR PO ONE (10:30)
[2017-04-15] MEDS: Magnesium 1GM/D5W 100ML PREMIX 100 ML IV SCH ×2 (10:32→12:40)
[2017-04-15] MEDS ORDERED: POTASSIUM CHLORIDE 20 MEQ POWDER PACKET GT ONE ×2 (11:00→14:30)
[2017-04-15] MEDS: ACETYLCYSTEINE 20% SOLN 800 MG/4 ML VIAL NEB SCH ×3 (11:02→22:47)
[2017-04-15] MEDS: IPRATROPIUM NEB FS 0.5 MG/2.5 ML AMPUL.NEB NEB SCH ×3 (11:02→22:48)
--- NOTE | 2017-04-15 11:25 | NUR ---
RT PT COMPLAINING OF SHORTNESS OF BREATH. INCREASE WORK OF BREATHING NOTED AND PT DESATURATING TO MID 80s. PT PLACED BACK ON BiPAP WITH PREVIOUS SETTINGS. RN NOTIFIED AND AWARE. WILL CONTINUE TO MONITOR THE PATIENT CLOSELY. Addendum: 04/15/17 at 1138 by YAA MAY RT Amended: Links added.
--- NOTE | 2017-04-15 13:38 | NUR ---
TANK SHOP SUPERVISOR UNABLE TO FEED THE PATIENT AT THIS TIME SINCE PATIENT DECOMPENSATES FAST OFF BIPAP.
[2017-04-15] MEDS: methylPREDNISolone SOD SUCC 40 MG/ML VIAL IV SCH (16:59)
[2017-04-15] MEDS: LEVOFLOXACIN 500 MG /D5W 100ML 500 MG in PREMIX 1 EA IV SCH (16:59)
--- NOTE | 2017-04-15 20:00 | NUR ---
Received patient sleeping awakened easily.Bipap in place with same settings well tolerated SPO2 98%Respiration even and unlabored.Denies pain or sob.SR 80's to 90's. Hemodynamically stable.Encouraged to turn to sides Q 2 hrs.Verbalized understanding. Call light at bedside within easy reach for safety.
[2017-04-15] MEDS: ENOXAPARIN SODIUM 40 MG/0.4 ML DISP.SYRIN SQ SCH (21:01)
[2017-04-15] MEDS: MIRTAZAPINE 15 MG TABLET PO SCH (21:41)
[2017-04-16] VITALS (34 sets, daily range): BP systolic 118–182; BP diastolic 58–83
--- NOTE | 2017-04-16 | NUR ---
Patient resting.VS stable.No distress noted.All due medications administered.Needs attended.
[2017-04-16] MEDS ORDERED: methylPREDNISolone SOD SUCC 40 MG/ML VIAL ONE (00:43)
[2017-04-16] MEDS: methylPREDNISolone SOD SUCC 40 MG/ML VIAL IV SCH ×4 (00:45→21:02)
[2017-04-16] MEDS: RACEPINEPHRINE HCL 2.25% NEB 0.5 ML VIAL.NEB IH SCH ×4 (00:51→20:00)
[2017-04-16 04:40] LABS: BASOPHILS % (AUTO) 0.2 % (0.0-2.0); HEMATOCRIT 36 % (33-45); HEMOGLOBIN 11.8 g/dL (11.5-14.8); LYMPHOCYTES # (AUTO) 0.7 /CMM (0.8-4.8); LYMPHOCYTES % (AUTO) 3.5 % (20.0-44.0); MEAN CORPUSCULAR HEMOGLOBIN 30 PG (26.0-33.0); MEAN CORPUSCULAR HGB CONC 33 g/dl (31.0-36.0); MEAN CORPUSCULAR VOLUME 92 fL (82-100); MONOCYTES # (AUTO) 0.3 /CMM (0.1-1.30); MONOCYTES % (AUTO) 1.8 % (2.0-12.0); NEUTROPHILS # (AUTO) 18.3 /CMM (1.8-8.9); NEUTROPHILS % (AUTO) 94.5 % (43.0-81.0); PLATELET COUNT (AUTO) 639 /CMM (150-450); RDW COEFFICIENT OF VARIATION 13.7 (11.5-15.0); RED BLOOD CELL COUNT(AUTO) 3.88 MIL/uL (4.0-5.2); WHITE BLOOD COUNT (AUTO) 19.4 K/uL (4.3-11.0)
[2017-04-16 04:53] LABS: CALCIUM, SERUM 8.5 mg/dL (8.5-10.1); CREATININE 0.5 mg/dL (0.6-1.3); POTASSIUM 3.5 mmol/L (3.5-5.1)
[2017-04-16] MEDS: VANCOMYCIN 1 GM in IV D5W 250 ML IV SCH ×2 (05:00→13:42)
[2017-04-16 05:44] LABS: LYMPHOCYTES % (MANUAL) 2 % (16-48); MONOCYTES % (MANUAL) 4 % (0-11.0); NEUTROPHILS % (MANUAL) 94 (42-76)
[2017-04-16] MEDS: PIPERACILLIN /TAZOBACTAM 3.375 G in IV D5W 50 ML IV SCH ×4 (06:02→23:18)
--- NOTE | 2017-04-16 07:35 | NUR ---
HERD TESTER RECEIVED PATIENT FROM THE PREVIOUS SHIFT. PATIENT IS IN BED. RESTING COMFORTABLY. NO ACUTE DISTRESS NOTED. EVEN AND NON LABORED BREATHING PATTERN. BIPAP SETTINGS REVIEWED AND VERIFIED. ALERT AND ORIENTED X 4. WILL CONTINUE TO MONITOR AND PROVIDE CARE.
[2017-04-16] MEDS: IPRATROPIUM NEB FS 0.5 MG/2.5 ML AMPUL.NEB NEB SCH ×3 (07:56→23:59)
[2017-04-16] MEDS: ACETYLCYSTEINE 20% SOLN 800 MG/4 ML VIAL NEB SCH ×3 (07:56→23:30)
--- NOTE | 2017-04-16 08:27 | NUR ---
WOUND CARE CONSULT: PT PRESENTS WITH PERIANAL REDNESS. PT IS INCONTINENT. PT NOTED TO HAVE SCARRING TO BACK AND UPPER BACK WITH EDEMA (GENERALIZED) AND FEW TINY SCABS TO UPPER BACK AREA, PRESENT ON ADMISSION. RECOMMENDATIONS MADE FOR SKIN PROTECTION. DISCUSSED WITH NURSING STAFF. PT ON [facility] AIRLOSS BED. WILL SEE PRN. TATE IN AGREEMENT WITH PLAN OF CARE. Addendum: 04/16/17 at 2906 by SHENG MALHOTRA WNDNU Amended: Links added.
--- NOTE | 2017-04-16 08:29 | NUR ---
placed on non rebreather @ 15 lpm o2 flow. pt looks comfortable on above settings. spo2 98% hr 93 rr 18 Addendum: 04/16/17 at 0830 by HILARIO FAIRBANKS RT Amended: Links added.
[2017-04-16] MEDS: Z GUARD REMEDY 4 OZ OINT TP SCH (09:00)
[2017-04-16] MEDS: FAMOTIDINE/PF INJ 20 MG/2 ML VIAL IV SCH ×2 (09:17→21:02)
[2017-04-16] MEDS: LACTOBACILLUS RHAMNOSUS GG 1 EACH CAP.SPRINK PO SCH ×2 (09:17→17:01)
[2017-04-16] MEDS: SERTRALINE HCL 50 MG TABLET PO SCH (09:17)
[2017-04-16] MEDS: MONTELUKAST SODIUM (10MG) 10 MG TABLET PO SCH ×2 (09:18→21:02)
[2017-04-16] MEDS: Z GUARD REMEDY 2 OZ OINT TP PRN (09:19)
--- NOTE | 2017-04-16 09:44 | NUR ---
PLACED ON BIPAP DUE TO INCREASED WOB. Addendum: 04/16/17 at 0944 by HILARIO FAIRBANKS RT Amended: Links added.
[2017-04-16 11:16] LABS: ABG BASE EXCESS 15.7 mmol/L; ABG OXYGEN SATURATION 93.3 % (92.0-98.5); ABG PCO2 59.1 mmHg (35.0-45.0); ABG PO2 65.9 mmHg (75.0-100.0); AaDO2 296.9 mmHg; COHb 0.4 % (0.5-1.5); MetHb 0.8 % (0.0-1.5); O2Hb 92.2 % (94.0-97.0); SITE, ABG Left Radial
[2017-04-16] MEDS: LEVOFLOXACIN 500 MG /D5W 100ML 500 MG in PREMIX 1 EA IV SCH (16:57)
--- NOTE | 2017-04-16 19:17 | NUR ---
REHABILITATION SERVICES MANAGER INFECTIOUS DISEASE TRENCHER DRIVER MADE AWARE OF PATIENT'S NEGATIVE TB TEST RESULTS FROM LEFT FOREARM ADMINISTRATION SITE.
--- NOTE | 2017-04-16 20:00 | NUR ---
RN NOTES RECEIVED PX AWAKE, ALERT, ORIENTED X 3, ON BIPAP MACHINE, SATURATING 98-99%; PICC ON RIGHT UA DRESSING CLEAN DRY INTACT; PX MOVES BY SELF IN BED WITH DIAPER ON; HAD 1 LOOSE BM GREENISH LARGE MUCOID IN BETTIE., PERICARE RENDERED, CHANGED DIAPER AND GOWN AND BED LINENS, Z GUARD APPLIED TO PERIAREA, PROCEDURE TOLERATED; PX DENIED PAIN, SOB, N/V; DISCUSSED PLAN OF CARE; EXPLAINED NEED FOR DVT PUMP BUT PX REFUSED; CALL LIGHT WITHIN REACH.
--- NOTE | 2017-04-16 20:30 | NUR ---
RN NOTES [facility] TROUGH 25, PHARMACIST ON DUTY MADE AWARE, NEW ORDERS MADE.
[2017-04-16] MEDS: MIRTAZAPINE 15 MG TABLET PO SCH (21:02)
[2017-04-16] MEDS: ENOXAPARIN SODIUM 40 MG/0.4 ML DISP.SYRIN SQ SCH (21:03)
[2017-04-17] VITALS (35 sets, daily range): BP systolic 92–168; BP diastolic 65–102
--- NOTE | 2017-04-17 00:40 | NUR ---
RN NOTES CONDITION UNCHANGED; PX DENIED HEADACHE, PAIN, SOB, N/V, BP INCREASED TO 158, DENIED CHEST PAIN, DIZZINESS, PALPITATIONS.
[2017-04-17] MEDS: methylPREDNISolone SOD SUCC 40 MG/ML VIAL IV SCH ×5 (01:49→21:18)
[2017-04-17] MEDS: RACEPINEPHRINE HCL 2.25% NEB 0.5 ML VIAL.NEB IH SCH ×4 (01:59→19:50)
[2017-04-17] MEDS: PIPERACILLIN /TAZOBACTAM 3.375 G in IV D5W 50 ML IV SCH ×4 (05:13→23:43)
--- NOTE | 2017-04-17 06:17 | NUR ---
RN NOTES BEDBATH RENDERED, PERICARE GIVEN, STILL WITH REDNESS ON PERIAREA, Z GUARD APPLIED, NO PRESSURE ULCER NOTED, PROCEDURES TOLERATED; PX DENIED PAIN, SOB, N/V, V/S WNL EXCEPT BP ON THE HIGH SIDE, PX DENIED PAIN, SOB, N/V; CALL LIGHT WITHIN REACH.
[2017-04-17] MEDS ORDERED: VANCOMYCIN 1 GM in IV D5W 250 ML IV SCH (07:00)
[2017-04-17 07:05] LABS: CALCIUM, SERUM 8.5 mg/dL (8.5-10.1); CREATININE 0.5 mg/dL (0.6-1.3); MAGNESIUM 2.1 mg/dL (1.8-2.4); POTASSIUM 3.7 mmol/L (3.5-5.1)
--- NOTE | 2017-04-17 07:15 | NUR ---
RN INITIAL NOTES RECEIVED PT AWAKE, A/OX4. ON BIPAP. HOB ELEVATED. NO RESPIRATORY DISTRESS NOTED. NO SOB NOTED. DENIES ANY PAIN. HARI MIDLINE AND RH #[address] ON 12NS + KCL 20MEQ AT 75ML/HR. PT CLEAN AND DRY. PT COMFORTABLE. BLE ELEVATED. WILL CONTINUE TO MONITOR.
[2017-04-17] MEDS: ACETYLCYSTEINE 20% SOLN 800 MG/4 ML VIAL NEB SCH ×3 (07:35→23:21)
[2017-04-17 07:54] LABS: BASOPHILS % (AUTO) 0.2 % (0.0-2.0); EOSINOPHILS # (AUTO) 0.1 /CMM (0.0-0.7); EOSINOPHILS % (AUTO) 0.4 % (0.0-6.0); HEMATOCRIT 34 % (33-45); HEMOGLOBIN 11.1 g/dL (11.5-14.8); LYMPHOCYTES # (AUTO) 0.5 /CMM (0.8-4.8); LYMPHOCYTES % (AUTO) 2.8 % (20.0-44.0); MEAN CORPUSCULAR HEMOGLOBIN 30 PG (26.0-33.0); MEAN CORPUSCULAR HGB CONC 32 g/dl (31.0-36.0); MEAN CORPUSCULAR VOLUME 92 fL (82-100); MONOCYTES # (AUTO) 0.3 /CMM (0.1-1.30); MONOCYTES % (AUTO) 1.4 % (2.0-12.0); NEUTROPHILS # (AUTO) 16.7 /CMM (1.8-8.9); NEUTROPHILS % (AUTO) 95.2 % (43.0-81.0); PLATELET COUNT (AUTO) 538 /CMM (150-450); RDW COEFFICIENT OF VARIATION 13.9 (11.5-15.0); RED BLOOD CELL COUNT(AUTO) 3.74 MIL/uL (4.0-5.2); WHITE BLOOD COUNT (AUTO) 17.5 K/uL (4.3-11.0)
[2017-04-17] MEDS: SERTRALINE HCL 50 MG TABLET PO SCH (08:04)
[2017-04-17] MEDS: FAMOTIDINE/PF INJ 20 MG/2 ML VIAL IV SCH ×2 (08:04→21:18)
[2017-04-17] MEDS: LACTOBACILLUS RHAMNOSUS GG 1 EACH CAP.SPRINK PO SCH ×2 (08:04→16:35)
[2017-04-17] MEDS: IPRATROPIUM NEB FS 0.5 MG/2.5 ML AMPUL.NEB NEB SCH ×3 (08:05→23:21)
[2017-04-17] MEDS: Z GUARD REMEDY 4 OZ OINT TP SCH (08:05)
--- NOTE | 2017-04-17 08:07 | NUR ---
placed on non rebreather @ 15 lpm o2 flow spo2 100% hr 92 Addendum: 04/17/17 at 0808 by HILARIO FAIRBANKS RT Amended: Links added.
[2017-04-17 09:19] LABS: BAND % (MANUAL) 3 % (0.0-5.0); LYMPHOCYTES % (MANUAL) 2 % (16-48); MONOCYTES % (MANUAL) 3 % (0-11.0); NEUTROPHILS % (MANUAL) 92 (42-76)
[2017-04-17 09:22] LABS: ABG BASE EXCESS 19.1 mmol/L; ABG PCO2 70.3 mmHg (35.0-45.0); ABG PH 7.442 (7.350-7.450); ABG PO2 243.2 mmHg (75.0-100.0); AaDO2 392.2 mmHg; COHb 0.5 % (0.5-1.5); MetHb 0.7 % (0.0-1.5); O2Hb 97.8 % (94.0-97.0); SITE, ABG Left Brachial; VENT MODE, BG NON REBREATHER
--- NOTE | 2017-04-17 10:00 | NUR ---
RN NOTES 0800 PT PLACED ON NON-REBREATHER AT 15LPM. NO RESPIRATORY DISTRESS NOTED. NO SOB NOTED. HOB ELEVATED. DENIES ANY PAIN. WILL MONITOR. 0935 ABG DONE. PT PLACED ON NC AT 6LPM. HOB ELEVATED. WILL CLOSELY MONITOR 1000 NOTED 02 SAT 80S. PT AWAKE, A/OX4. DENIES SOB. NO RESPIRATORY DISTRESS NOTED. RR 21, HR 90S. PT PLACED BACK ON NON-REBREATHER AT 15LPM. O2 SAT WENT UP TO 90S. KEPT HOB ELEVATED. CALL LIGHT WITHIN REACH. WILL CLOSELY MONITOR.
--- NOTE | 2017-04-17 10:49 | NUR ---
placed on 50% via venturi. spo2 100% Addendum: 04/17/17 at 1050 by HILARIO FAIRBANKS RT Amended: Links added.
--- NOTE | 2017-04-17 11:00 | NUR ---
RN NOTES 1030 SEEN AND EXAMINED BY DR. CHINCHILLA. AWARE OF CURRENT LAB VALUES AND IMAGING STUDIES. PT ON NON-REBREATHER AT 15LPM. HOB ELEVATED. ABG DONE. TRIED 02 AT 6LPM VIA NC, PT DESATURATED 80S. NO ADDITIONAL ORDER. 1045 SEEN AND EXAMINED BY DR. CONDON. AWARE OF CURRENT LAB VALUES AND IMAGING STUDIES. REVIEWED CT CHEST WO CONTRAST RESULT. PER , PT WOULD BENEFIT FROM ANOTHER CT CHEST W CONTRAST. PT PLACED ON VENTURI MASK AT 50%. WILL KEEP 02 SAT ABOVE 88%. WILL CLOSELY MONITOR.
--- NOTE | 2017-04-17 15:35 | NUR ---
PT ALMOST ALWAYS WET FROM BEING INCONTINENT OF URINE AND STOOL INTO HER DIAPER. HAS RED SKIN BUTTOCKS AND PERINEUM. ORDER FOR PATIÑO CATH
[2017-04-17] MEDS: LEVOFLOXACIN 500 MG /D5W 100ML 500 MG in PREMIX 1 EA IV SCH (16:35)
--- NOTE | 2017-04-17 18:41 | NUR ---
RN CLOSING NOTES PT ON NON-REBREATHER AT 15LPM. 02 SAT 100%, RR 27. NO SIGNS OF RESPIRATORY DISTRESS NOTED. NO SOB NOTED. DENIES ANY PAIN. MIDLINE IN PLACE. TOLERATING IVF WELL. FC IN PLACE. ADEQUATE OUTPUT NOTED. ALL NEEDS ATTENDED AND MET. KEPT CLEAN AND DRY. REPOSITIONED Q2. KEPT COMFORTABLE. CALL LIGHT WITHIN REACH. WILL ENDORSE FOR CONTINUITY OF CARE.
--- NOTE | 2017-04-17 19:47 | NUR ---
ICU/ASSOCIATE MANAGER REPORT RECEIVED FROM DAY NURSE, PT IS ALERT X 3-4, WITH PERIODS OF BEING NEEDY. PT HAS NON REBREATHER MASK WHICH PT REQUESTED TO OUTDOOR STUDIES PROFESSOR TO BIPAP MASK. PT IS TOLERATING CURRENT BIPAP SETTINGS WITH SATURATION AT 100%. PT IS SINUS RHYTHM 80'S. PT HAS SOFT DIET, TOLERATING THIS WELL, PT ATE 75% DINNER. PT HAS PATIÑO CATH DRAINING YELLOW URINE. THERE ARE SKIN ISSUES THAT ARE ADDRESSED ON THE FLOW SHEET. PT WAS TURNED AND REPOSITIONED FOR COMFORT AND CARE. WILL CONTINUE TO MONITOR THIS PT. CALL LIGHT WITHIN REACH.
--- NOTE | 2017-04-17 21:10 | NUR ---
ICU/SENIOR MARKET INTELLIGENCE CONSULTANT NOTICED THAT INFECTIOUS DISEASE NURSE PRACTITIONER DISCONTINUED THE 0100 DOSE OF VANCO IVP. CHARGE NURSE WAS NOTIFIED ABOUT THIS CHANGE.
[2017-04-17] MEDS: ENOXAPARIN SODIUM 40 MG/0.4 ML DISP.SYRIN SQ SCH (21:25)
[2017-04-17] MEDS: MIRTAZAPINE 15 MG TABLET PO SCH (21:26)
[2017-04-17] MEDS: MONTELUKAST SODIUM (10MG) 10 MG TABLET PO SCH (21:26)
--- NOTE | 2017-04-17 23:20 | NUR ---
ICU/NEWSWRITER RESPIRATORY THERAPIST AT BEDSIDE, PT WAS GIVEN MUCOMYST VIA HHN. PT TOLERATED THIS WELL. REMAINS ON CURRENT BIPAP SETTINGS WITH SATURATION AT 98%. PT WAS TURNED AND REPOSITIONED FOR COMFORT AND CARE. CALL LIGHT WITHIN REACH.
[2017-04-18] VITALS (31 sets, daily range): BP systolic 115–167; BP diastolic 54–95
[2017-04-18] MEDS: RACEPINEPHRINE HCL 2.25% NEB 0.5 ML VIAL.NEB IH SCH ×4 (01:39→19:35)
--- NOTE | 2017-04-18 02:20 | NUR ---
ICU/BREAKER OFF PT WAS GIVEN AM CARE ALONG WITH ORAL CARE. PT TOLERATED THIS WELL, SATURATION REMAINS AT 100% ON CURRENT BIPAP SETTINGS. PT WAS TURNED AND REPOSITIONED FOR COMFORT AND CARE. WILL CONTINUE TO MONITOR THIS PT. CALL LIGHT WITHIN REACH. Addendum: 04/18/17 at 0719 by MARILYN HOOK LVN PT REFUSED AM CARE, HOWEVER WAS ABLE TO TURN PT. CALL LIGHT WITHIN REACH.
[2017-04-18] MEDS: methylPREDNISolone SOD SUCC 40 MG/ML VIAL IV SCH ×3 (03:28→17:48)
--- NOTE | 2017-04-18 04:00 | NUR ---
ICU/BOILER SETTER AM LABS WERE DONE.AWAIT RESULTS
--- NOTE | 2017-04-18 05:20 | NUR ---
ICU/ASSOCIATE PROPERTY MANAGER CRITICAL LAB VALUE WITH CO2 AT 45, HOWEVER THE PAST FEW DAY HAVE BEEN IN THE 40'S. CHARGE NURSE AWARE OF THIS.
[2017-04-18 05:23] LABS: CALCIUM, SERUM 8.4 mg/dL (8.5-10.1); CREATININE 0.5 mg/dL (0.6-1.3); POTASSIUM 3.9 mmol/L (3.5-5.1)
[2017-04-18] MEDS: PIPERACILLIN /TAZOBACTAM 3.375 G in IV D5W 50 ML IV SCH ×4 (05:49→23:08)
[2017-04-18] MEDS: ACETYLCYSTEINE 20% SOLN 800 MG/4 ML VIAL NEB SCH ×3 (07:52→22:38)
[2017-04-18] MEDS: IPRATROPIUM NEB FS 0.5 MG/2.5 ML AMPUL.NEB NEB SCH ×3 (07:53→22:38)
--- NOTE | 2017-04-18 07:54 | NUR ---
PLACED ON 50% VIA VENTURI MASK. BIPAP ON STD BY @ BEDSIDE. Addendum: 04/18/17 at 0812 by HILARIO FAIRBANKS RT Amended: Links added.
[2017-04-18] MEDS: FAMOTIDINE/PF INJ 20 MG/2 ML VIAL IV SCH ×2 (07:56→21:11)
[2017-04-18] MEDS: LACTOBACILLUS RHAMNOSUS GG 1 EACH CAP.SPRINK PO SCH ×2 (07:56→17:48)
[2017-04-18] MEDS: Z GUARD REMEDY 4 OZ OINT TP SCH (07:57)
[2017-04-18] MEDS: SERTRALINE HCL 50 MG TABLET PO SCH (08:23)
[2017-04-18 08:46] LABS: BASOPHILS # (AUTO) 0.3 /CMM (0.0-0.2); BASOPHILS % (AUTO) 1.4 % (0.0-2.0); HEMATOCRIT 34 % (33-45); HEMOGLOBIN 10.8 g/dL (11.5-14.8); LYMPHOCYTES # (AUTO) 0.9 /CMM (0.8-4.8); LYMPHOCYTES % (AUTO) 4.4 % (20.0-44.0); MEAN CORPUSCULAR HEMOGLOBIN 30 PG (26.0-33.0); MEAN CORPUSCULAR HGB CONC 32 g/dl (31.0-36.0); MEAN CORPUSCULAR VOLUME 93 fL (82-100); MONOCYTES # (AUTO) 1.4 /CMM (0.1-1.30); MONOCYTES % (AUTO) 6.5 % (2.0-12.0); NEUTROPHILS # (AUTO) 18.8 /CMM (1.8-8.9); NEUTROPHILS % (AUTO) 87.7 % (43.0-81.0); PLATELET COUNT (AUTO) 433 /CMM (150-450); RDW COEFFICIENT OF VARIATION 14.1 (11.5-15.0); RED BLOOD CELL COUNT(AUTO) 3.61 MIL/uL (4.0-5.2); WHITE BLOOD COUNT (AUTO) 21.4 K/uL (4.3-11.0)
--- NOTE | 2017-04-18 09:12 | NUR ---
PLACED BACK ON BIPAP PER PT REQUEST. Addendum: 04/18/17 at 0913 by HILARIO FAIRBANKS RT Amended: Links added.
[2017-04-18 09:13] LABS: LYMPHOCYTES % (MANUAL) 5 % (16-48); MONOCYTES % (MANUAL) 4 % (0-11.0); NEUTROPHILS % (MANUAL) 91 (42-76)
[2017-04-18 10:40] LABS: ABG BASE EXCESS 12.1 mmol/L; ABG OXYGEN SATURATION 97.2 % (92.0-98.5); ABG PCO2 60.1 mmHg (35.0-45.0); ABG PH 7.425 (7.350-7.450); ABG PO2 102.9 mmHg (75.0-100.0); AaDO2 258.8 mmHg; COHb 0.1 % (0.5-1.5); MetHb 0.8 % (0.0-1.5); O2Hb 96.3 % (94.0-97.0); SITE, ABG Left Brachial; VENT MODE, BG IPAP 22/ EPAP 10
--- NOTE | 2017-04-18 11:30 | NUR ---
PT TAKEN OFF BIPAP FOR BREAKFAST, NC AND VENTI MASK AT THIS TIME. TO SATED SHE WANTED BIPAP BACK BECAUSE BATHING IS DIFFICULT. PT BACK ON BIPAP WITH PREVIOUS SETTINGS.
--- NOTE | 2017-04-18 12:20 | NUR ---
IPAP [address] CONDON. Addendum: 04/18/17 at 1235 by HILARIO FAIRBANKS RT Amended: Links added.
--- NOTE | 2017-04-18 12:30 | NUR ---
DR CONDON AT BEDSIDE TO SEE PT. IV HL, AND BIPAP SETTINGS CHANGED TO 15/
[2017-04-18] MEDS: LEVOFLOXACIN 500 MG /D5W 100ML 500 MG in PREMIX 1 EA IV SCH (17:48)
--- NOTE | 2017-04-18 18:00 | NUR ---
PT ASSISTED WITH FULL BED/BATH AND SKIN CARE. BMX2 TODAY. ASSISTED WITH DINNER.
--- NOTE | 2017-04-18 19:30 | NUR ---
RN INITIAL NOTES RECEIVED PT AWAKE ON BED, A/O X3. CURRENTLY ON NON-REBREATHER AND BIPAP PRN WITH SETTINGS 15/5, R22, 60% FIO2, TACHYPNEIC BUT SATURATES WNL. SINUS TACH ON THE MONITOR. PATIÑO CATH NOTED. RIGHT UPPER ARM MIDLINE FLUSHED AND PATENT, NO S/S OF INFILTRATION/INFECTION, DRESSING CDI. BED LOW AND LOCKED, SIDERAILS UP, CALL LIGHT WITHIN REACH. WILL MONITOR
[2017-04-18] MEDS: MONTELUKAST SODIUM (10MG) 10 MG TABLET PO SCH (21:11)
[2017-04-18] MEDS: ENOXAPARIN SODIUM 40 MG/0.4 ML DISP.SYRIN SQ SCH (21:11)
[2017-04-18] MEDS: MIRTAZAPINE 15 MG TABLET PO SCH (21:11)
[2017-04-19] VITALS (26 sets, daily range): BP systolic 106–148; BP diastolic 62–86
[2017-04-19] MEDS: RACEPINEPHRINE HCL 2.25% NEB 0.5 ML VIAL.NEB IH SCH ×4 (00:55→19:15)
[2017-04-19 04:47] LABS: BASOPHILS # (AUTO) 0.1 /CMM (0.0-0.2); BASOPHILS % (AUTO) 0.3 % (0.0-2.0); EOSINOPHILS % (AUTO) 0.1 % (0.0-6.0); HEMATOCRIT 35 % (33-45); HEMOGLOBIN 11.6 g/dL (11.5-14.8); LYMPHOCYTES # (AUTO) 1.2 /CMM (0.8-4.8); LYMPHOCYTES % (AUTO) 5.1 % (20.0-44.0); MEAN CORPUSCULAR HEMOGLOBIN 30 PG (26.0-33.0); MEAN CORPUSCULAR HGB CONC 33 g/dl (31.0-36.0); MEAN CORPUSCULAR VOLUME 91 fL (82-100); MONOCYTES # (AUTO) 0.8 /CMM (0.1-1.30); MONOCYTES % (AUTO) 3.6 % (2.0-12.0); NEUTROPHILS # (AUTO) 21.4 /CMM (1.8-8.9); NEUTROPHILS % (AUTO) 90.9 % (43.0-81.0); PLATELET COUNT (AUTO) 362 /CMM (150-450); RDW COEFFICIENT OF VARIATION 14.5 (11.5-15.0); RED BLOOD CELL COUNT(AUTO) 3.92 MIL/uL (4.0-5.2); WHITE BLOOD COUNT (AUTO) 23.6 K/uL (4.3-11.0)
[2017-04-19] MEDS: PIPERACILLIN /TAZOBACTAM 3.375 G in IV D5W 50 ML IV SCH ×3 (05:31→17:00)
[2017-04-19 05:32] LABS: CALCIUM, SERUM 8.6 mg/dL (8.5-10.1); CREATININE 0.6 mg/dL (0.6-1.3); POTASSIUM 3.7 mmol/L (3.5-5.1)
[2017-04-19 06:09] LABS: LYMPHOCYTES % (MANUAL) 4 % (16-48); MONOCYTES % (MANUAL) 5 % (0-11.0); NEUTROPHILS % (MANUAL) 91 (42-76)
--- NOTE | 2017-04-19 07:42 | NUR ---
INITIAL STITCHING DEPARTMENT SUPERVISOR NOTE RCVD PT AWAKE AND ALERT, SHOWING NO S/O DISTRESS OR C/O PAIN AT THIS TIME. TOLERATING NRB MASK. ST ON TELE. PATIÑO IN PLACE DRAINING PALE, YELLOW URINE. HARI ML C/D/I/PATENT. NO S/O INFILTRATION/PHLEBITIS OBSERVED UPON FLUSHING. IVF INFUSING TKO. WILL CONTINUE TO MONITOR FOR SAFETY AND COMFORT. CALL LIGHT WITHIN REACH. BED IN LOW AND LOCKED POSITION.
[2017-04-19] MEDS: LACTOBACILLUS RHAMNOSUS GG 1 EACH CAP.SPRINK PO SCH ×2 (08:14→17:00)
[2017-04-19] MEDS: methylPREDNISolone SOD SUCC 40 MG/ML VIAL IV SCH ×2 (08:14→17:00)
[2017-04-19] MEDS: SERTRALINE HCL 50 MG TABLET PO SCH (08:15)
[2017-04-19] MEDS: Z GUARD REMEDY 4 OZ OINT TP SCH (08:17)
[2017-04-19] MEDS: IPRATROPIUM NEB FS 0.5 MG/2.5 ML AMPUL.NEB NEB SCH ×3 (08:40→23:15)
[2017-04-19] MEDS: ACETYLCYSTEINE 20% SOLN 800 MG/4 ML VIAL NEB SCH ×3 (08:40→23:15)
[2017-04-19] MEDS: FAMOTIDINE/PF INJ 20 MG/2 ML VIAL IV SCH ×2 (09:06→21:33)
[2017-04-19 09:32] LABS: ABG BASE EXCESS 15.7 mmol/L; ABG OXYGEN SATURATION 93.5 % (92.0-98.5); ABG PCO2 74.6 mmHg (35.0-45.0); ABG PH 7.392 (7.350-7.450); ABG PO2 68.3 mmHg (75.0-100.0); AaDO2 423.8 mmHg; COHb 0.7 % (0.5-1.5); MetHb 0.5 % (0.0-1.5); O2Hb 92.4 % (94.0-97.0); SITE, ABG Right Radial; VENT MODE, BG NRM
--- NOTE | 2017-04-19 12:59 | NUR ---
MEDICAL REIMBURSEMENT SPECIALIST NOTE PT REMAINS STABLE, DR. RIVERA AWARE OF ABG RESULTS FROM THIS AM. NO NEW ORDERS RCVD.
[2017-04-19] MEDS: LEVOFLOXACIN 500 MG /D5W 100ML 500 MG in PREMIX 1 EA IV SCH (15:34)
--- NOTE | 2017-04-19 16:41 | NUR ---
FINANCIAL ANALYSIS CONSULTANT NOTE PER DR. RIVERA CT CHEST WITH CONTRAST TO R/O RIGHT HILAR MASS ON HOLD UNTIL PT BECOMES MORE STABLE. PT NEEDS TO BE NPO FOR PROCEDURE.
--- NOTE | 2017-04-19 18:11 | NUR ---
DISTRIBUTION ACCOUNTING CLERK NOTE PT REMAINS STABLE, SHOWING NO S/O DISTRESS/PAIN AT THIS TIME. CONTINUES ON NRB MASK TOLERATING WELL. PATIÑO DRAINING WELL PALE, YELLOW URINE. HARI MIDLINE C/D/I/PATENT. NO S/O INFILTRATION/PHLEBITIS OBSERVED. PT'S CARE WILL BE ENDORSED TO RESIDENTIAL LEASING AGENT RN FOR CONTINUITY OF CARE.
--- NOTE | 2017-04-19 19:51 | NUR ---
PT PLACED BACK ON BIPAP DO TO SOB. PT IS AWAKE AND ALERT GIVEN BREATHING TX. WILL CONTINUE TO MONITOR. Addendum: 04/19/17 at 2 by JUNIOR HAWK RT Amended: Links added.
[2017-04-19] MEDS: ENOXAPARIN SODIUM 40 MG/0.4 ML DISP.SYRIN SQ SCH (21:34)
[2017-04-19] MEDS: MONTELUKAST SODIUM (10MG) 10 MG TABLET PO SCH (21:34)
[2017-04-19] MEDS: MIRTAZAPINE 15 MG TABLET PO SCH (21:34)
--- NOTE | 2017-04-19 22:10 | NUR ---
PT REQUESTED TO BE OFF BIPAP. NOTIFIED RN. PT PLACED ON NRB. WILL CONTINUE TO MONITOR.
[2017-04-20] VITALS (24 sets, daily range): BP systolic 109–145; BP diastolic 64–86
[2017-04-20] MEDS: PIPERACILLIN /TAZOBACTAM 3.375 G in IV D5W 50 ML IV SCH ×5 (00:46→23:55)
[2017-04-20] MEDS: RACEPINEPHRINE HCL 2.25% NEB 0.5 ML VIAL.NEB IH SCH ×4 (01:16→19:33)
[2017-04-20 04:50] LABS: BASOPHILS % (AUTO) 0.1 % (0.0-2.0); EOSINOPHILS # (AUTO) 0.1 /CMM (0.0-0.7); EOSINOPHILS % (AUTO) 0.3 % (0.0-6.0); HEMATOCRIT 35 % (33-45); HEMOGLOBIN 11.4 g/dL (11.5-14.8); LYMPHOCYTES # (AUTO) 1.2 /CMM (0.8-4.8); LYMPHOCYTES % (AUTO) 4.6 % (20.0-44.0); MEAN CORPUSCULAR HEMOGLOBIN 30 PG (26.0-33.0); MEAN CORPUSCULAR HGB CONC 33 g/dl (31.0-36.0); MEAN CORPUSCULAR VOLUME 92 fL (82-100); MONOCYTES % (AUTO) 3.8 % (2.0-12.0); NEUTROPHILS % (AUTO) 91.2 % (43.0-81.0); PLATELET COUNT (AUTO) 317 /CMM (150-450); RDW COEFFICIENT OF VARIATION 13.8 (11.5-15.0); WHITE BLOOD COUNT (AUTO) 26.3 K/uL (4.3-11.0)
[2017-04-20 05:04] LABS: CALCIUM, SERUM 8.7 mg/dL (8.5-10.1); CHLORIDE 101 mmol/L (98-107); CREATININE 0.6 mg/dL (0.6-1.3); GLUCOSE 127 mg/dL (74-106); POTASSIUM 3.4 mmol/L (3.5-5.1); SODIUM SERUM 146 mmol/L (136-145); UREA NITROGEN, BLOOD 14 mg/dL (7-18)
[2017-04-20 05:14] LABS: BAND % (MANUAL) 5 % (0.0-5.0); LYMPHOCYTES % (MANUAL) 4 % (16-48); MONOCYTES % (MANUAL) 3 % (0-11.0); NEUTROPHILS % (MANUAL) 88 (42-76)
[2017-04-20 05:18] LABS: CARBON DIOXIDE 50 mmol/L (21-32)
--- NOTE | 2017-04-20 05:30 | NUR ---
COLORER HIDES AND SKINS - LAB CALLED IN A CRITICAL C02 VALUE AT #50- DOCUMENTED. PT.REFUSING BEDBATH. WANTS IT AFTER BREAKFAST. PULMONARY TOILETING CONT. PATIÑO CATH TO GRAVITY SHOWS GOOD UOP AT #1800 CC. PT.WAS ON BIPAP AND DECIDED SHE WOULD LIKE NRB/15L BACK ON. SO AT 22:00, NRB PLACED BACK ON PT. AFEBRILE. ALL PULSES PALPABLE X 4 EXT. RUE MIDLINE HAS 2 PORTS BOTH PATENT TO FLUSH. 0.9%NS INFUSING AT TKO/WITH ABX'S. ILANA AREA EXCOR - IATED. ZGUARD AT BS/PRN USAGE. HEART MONITOR SHOWS SR/ST IN THE 90'S-TEENS. SBP'S ARE 120'S-140'S. CONT.POC.
[2017-04-20] MEDS: IPRATROPIUM NEB FS 0.5 MG/2.5 ML AMPUL.NEB NEB SCH ×3 (07:45→23:22)
[2017-04-20] MEDS: ACETYLCYSTEINE 20% SOLN 800 MG/4 ML VIAL NEB SCH ×3 (07:45→23:21)
--- NOTE | 2017-04-20 07:45 | NUR ---
ICU/RN - Initial Notes Received pt in bed awake, alert and oriented x3. On O2 @ 15lpm via non-rebreather, in no acute respiratory distress at this time. Denies pain or discomfort. On tele reading ST 105. IV saline locked patent and intact. Foster catheter intact draining urine to gravity. Safety and comfort measures in place. Will continue to monitor pt closely.
[2017-04-20] MEDS: methylPREDNISolone SOD SUCC 40 MG/ML VIAL IV SCH ×3 (08:15→16:24)
[2017-04-20] MEDS: FAMOTIDINE/PF INJ 20 MG/2 ML VIAL IV SCH ×2 (08:15→21:40)
[2017-04-20] MEDS: LACTOBACILLUS RHAMNOSUS GG 1 EACH CAP.SPRINK PO SCH ×2 (08:15→16:24)
[2017-04-20] MEDS: SERTRALINE HCL 50 MG TABLET PO SCH (08:15)
[2017-04-20] MEDS: Z GUARD REMEDY 4 OZ OINT TP SCH (08:19)
[2017-04-20] MEDS ORDERED: POTASSIUM CHLORIDE 20 MEQ TAB.PRT.SR PO ONE (08:30)
[2017-04-20 09:44] LABS: ABG BASE EXCESS 21.8 mmol/L; ABG PCO2 86.6 mmHg (35.0-45.0); AaDO2 529.4 mmHg; COHb 0.4 % (0.5-1.5); MetHb 0.9 % (0.0-1.5); O2Hb 95.7 % (94.0-97.0); SITE, ABG Right Radial; VENT MODE, BG NRB MASK
--- NOTE | 2017-04-20 10:00 | NUR ---
ICU/RN - Notes ABG results relayed to Dr Vasquez by RT Bledsoe. Per MD, keep pt on non-rebreather mask and titrate down O2 as pt's condition persists.
[2017-04-20] MEDS: LEVOFLOXACIN 500 MG /D5W 100ML 500 MG in PREMIX 1 EA IV SCH (15:24)
--- NOTE | 2017-04-20 17:50 | NUR ---
ICU/RN - Notes Pt complains of shortness of breath upon attempting to eat dinner. No s/s of aspiration. RT called to give pt PRN breathing treatment. Will continue to monitor.
[2017-04-20] MEDS: IPRATROPIUM NEB FS 0.5 MG/2.5 ML AMPUL.NEB NEB PRN (17:53)
--- NOTE | 2017-04-20 18:48 | NUR ---
ICU/RN - Notes Pt states she feels better post breathing treatment. No acute distress at this time. Visitor at bedside.
--- NOTE | 2017-04-20 20:17 | NUR ---
PT IS AWAKE AND ALERT ON NRB MASK. BIPAP S/B. WILL CONTINUE TO MONITOR.
--- NOTE | 2017-04-20 21:00 | NUR ---
ECONOMICS CONSULTANT - REC'D PT. ON DIPRIVAN GTT. AT 30 MCG/KG/MIN. PT'S EYES ARE OPEN, RT AT BS. WHEN RT SX'D PT., PT. ATTEMPTED TO PULL ON ETT. DIPRIVAN GTT. WAS INCREASED TO 40 MCG/KG/MIN. PT. WAS SEDATED QUICKLY. VSS. NO S/S OF DISTRESS OR DISCOMFORT. VENT SETTINGS AT AC-12, TV-500, FIO2=70% & PEEP OF 5. LUNG LALA ARE RHONCHUS TO AUSC. OGT HAS GLYTROL INFUSING AT 55CC/HR. PT.IS TOLERATING WELL. LITTLE TO NO RESIDUALS NOTED. PATIÑO CATH TO GRAVITY W/GOOD UOP. PT. HAS WOUND/SKIN ISSUES. SKIN CARE PROVIDED. AP LU HAS DIPRIVAN INFUSING & 0.9%NS INFUSING AT 75CC/HR. ALL IVF'S ARE ON VIGIL PUMPS. CONT.POC. Addendum: 04/21/17 at 0123 by DANISH WRIGHT RN DISREGARD ABOVE NOTE - WRONG PT.
[2017-04-20] MEDS: MONTELUKAST SODIUM (10MG) 10 MG TABLET PO SCH (21:40)
[2017-04-20] MEDS: MIRTAZAPINE 15 MG TABLET PO SCH (21:40)
[2017-04-20] MEDS: ENOXAPARIN SODIUM 40 MG/0.4 ML DISP.SYRIN SQ SCH (21:41)
[2017-04-21] VITALS (24 sets, daily range): BP systolic 129–153; BP diastolic 67–88
[2017-04-21] MEDS: methylPREDNISolone SOD SUCC 40 MG/ML VIAL IV SCH ×3 (00:10→16:45)
[2017-04-21] MEDS: RACEPINEPHRINE HCL 2.25% NEB 0.5 ML VIAL.NEB IH SCH ×4 (01:31→19:48)
[2017-04-21 04:52] LABS: EOSINOPHILS % (AUTO) 0.1 % (0.0-6.0); HEMATOCRIT 34 % (33-45); LYMPHOCYTES # (AUTO) 0.5 /CMM (0.8-4.8); LYMPHOCYTES % (AUTO) 2.8 % (20.0-44.0); MEAN CORPUSCULAR HEMOGLOBIN 30 PG (26.0-33.0); MEAN CORPUSCULAR HGB CONC 32 g/dl (31.0-36.0); MEAN CORPUSCULAR VOLUME 92 fL (82-100); MONOCYTES # (AUTO) 0.3 /CMM (0.1-1.30); MONOCYTES % (AUTO) 1.7 % (2.0-12.0); NEUTROPHILS # (AUTO) 18.5 /CMM (1.8-8.9); NEUTROPHILS % (AUTO) 95.4 % (43.0-81.0); PLATELET COUNT (AUTO) 299 /CMM (150-450); RDW COEFFICIENT OF VARIATION 13.4 (11.5-15.0); RED BLOOD CELL COUNT(AUTO) 3.73 MIL/uL (4.0-5.2); WHITE BLOOD COUNT (AUTO) 19.4 K/uL (4.3-11.0)
--- NOTE | 2017-04-21 05:00 | NUR ---
PATIENT REGISTRATION CLERK - PLEASE DISREGARD MY PREVIOUS NOTE. PT.IS A PLEASANT PT. W/CHRONIC RESP. FAILURE. PT.TOLERATED NRB MASK/10L ALL SHIFT. PT. HAS PRODUCTIVE COUGH. + PULMONARY TOILETING. PT.IS INDEPENDENT, BUT BECOMES SOB EASILY. HEART MONITOR SHOWS SR/ST/LOW 100'S. SBP'S WNL. PT.HAD 2 LIQUID STOOL BM'S LAST NOC. PT. ADM. A COMPLETE BEDBATH W/ILANA CARE ADM. AFEBRILE. DENIES PAIN. ALL PULSES PALPABLE X 4 EXT. RUE MIDLINE HAS 0.9%NS AT TKO W/MULTIPLE IVPB'S . CRITICAL VALUE CO2 PHONED IN BY FRANCISCA Maxwell IN LABORATORY. LEVEL IS DECREASING AT #47. NOTED. PT. HAD GOOD UOP VIA PATIÑO & LOVES TO DRINK CRANBERRY JUICE. CONT. POC.
[2017-04-21 05:03] LABS: CALCIUM, SERUM 8.7 mg/dL (8.5-10.1); CREATININE 0.6 mg/dL (0.6-1.3); POTASSIUM 3.8 mmol/L (3.5-5.1)
[2017-04-21] MEDS: PIPERACILLIN /TAZOBACTAM 3.375 G in IV D5W 50 ML IV SCH ×3 (06:11→18:18)
--- NOTE | 2017-04-21 07:30 | NUR ---
ICU/RN: PT RECEIVED, LAYING IN BED, A&OX4, FOLLOWS COMMANDS, NO DISTRESS NOTED, FC DRAINING WELL TO GRAVITY, BREATHING EVEN AND UNLABORED. ORIENTED TO UNIT, POC, VERBALIZED UNDERSTANDING. WILL CONT TO MONITOR PT STATUS.
[2017-04-21] MEDS: IPRATROPIUM NEB FS 0.5 MG/2.5 ML AMPUL.NEB NEB SCH ×3 (07:34→23:50)
[2017-04-21] MEDS: ACETYLCYSTEINE 20% SOLN 800 MG/4 ML VIAL NEB SCH ×3 (07:34→23:50)
--- NOTE | 2017-04-21 08:20 | NUR ---
WOUND CARE CONSULT: PT PRESENTS WITH RASH TO BUTTOCKS AND PERINEUM. PT CONTINUES TO HAVE LOOSE STOOLS. RECOMMENDATIONS MADE FOR CARE OF RASH AND SKIN PROTECTION. DISCUSSED WITH NURSING STAFF. DR CHINCHILLA IN TO EXAMINE PT. ALL SKIN PROTECTION MEASURES IN PLACE. [facility]. WILL SEE PRN. TATE IN AGREEMENT WITH PLAN OF CARE. Addendum: 04/21/17 at 0821 by SHENG MALHOTRA WNDNU Amended: Links added.
--- NOTE | 2017-04-21 08:30 | NUR ---
ICU/RN: S/B WOUND CARE CONSULT AND DR CHINCHILLA. NEW ORDERS NOTED AND CARRIED OUT. SOB NOTED WITH TURNING AND REPOSITIONING; TITRATED O2 UP TO 15L/MIN VIA NON-REBREATHER. HOB ELEVATED WITH IMPROVEMENT IN RESPIRATIONS. WILL CONT TO MONITOR.
[2017-04-21] MEDS: SERTRALINE HCL 50 MG TABLET PO SCH (08:58)
[2017-04-21] MEDS: Z GUARD REMEDY 2 OZ OINT TP PRN (08:58)
[2017-04-21] MEDS: LACTOBACILLUS RHAMNOSUS GG 1 EACH CAP.SPRINK PO SCH ×2 (08:58→16:45)
[2017-04-21] MEDS: Z GUARD REMEDY 4 OZ OINT TP SCH (08:59)
[2017-04-21] MEDS: CLOTRIMAZOLE 1% 15 GM TUBE TP SCH ×2 (09:00→16:45)
[2017-04-21] MEDS: FAMOTIDINE/PF INJ 20 MG/2 ML VIAL IV SCH ×2 (10:45→22:06)
[2017-04-21 11:04] LABS: BAND % (MANUAL) 2 % (0.0-5.0); LYMPHOCYTES % (MANUAL) 2 % (16-48); MONOCYTES % (MANUAL) 2 % (0-11.0); NEUTROPHILS % (MANUAL) 94 (42-76)
--- NOTE | 2017-04-21 16:30 | NUR ---
ICU/RN: PT O2 SAT 98% ON NRB 15L/MIN; TITRATED DOWN TO 10L/MIN. WILL MONITOR PT.
[2017-04-21] MEDS: LEVOFLOXACIN 500 MG /D5W 100ML 500 MG in PREMIX 1 EA IV SCH (16:45)
--- NOTE | 2017-04-21 17:29 | NUR ---
ICU/RN: PT C/O SOB; PLACED BACK ON O2 15L/MIN VIA NRB
[2017-04-21] MEDS: IPRATROPIUM NEB FS 0.5 MG/2.5 ML AMPUL.NEB NEB PRN (19:49)
[2017-04-21] MEDS: MIRTAZAPINE 15 MG TABLET PO SCH (22:07)
[2017-04-21] MEDS: ENOXAPARIN SODIUM 40 MG/0.4 ML DISP.SYRIN SQ SCH (22:08)
[2017-04-21] MEDS: MONTELUKAST SODIUM (10MG) 10 MG TABLET PO SCH (22:10)
[2017-04-22] VITALS (25 sets, daily range): BP systolic 127–155; BP diastolic 77–94
[2017-04-22] MEDS: methylPREDNISolone SOD SUCC 40 MG/ML VIAL IV SCH ×3 (00:27→16:03)
[2017-04-22] MEDS: PIPERACILLIN /TAZOBACTAM 3.375 G in IV D5W 50 ML IV SCH ×4 (00:27→17:36)
[2017-04-22] MEDS: RACEPINEPHRINE HCL 2.25% NEB 0.5 ML VIAL.NEB IH SCH ×4 (01:45→19:47)
[2017-04-22] MEDS: IPRATROPIUM NEB FS 0.5 MG/2.5 ML AMPUL.NEB NEB PRN ×2 (01:45→19:47)
[2017-04-22 05:11] LABS: BASOPHILS % (AUTO) 0.3 % (0.0-2.0); EOSINOPHILS % (AUTO) 0.2 % (0.0-6.0); HEMATOCRIT 35 % (33-45); HEMOGLOBIN 11.4 g/dL (11.5-14.8); LYMPHOCYTES # (AUTO) 0.5 /CMM (0.8-4.8); LYMPHOCYTES % (AUTO) 3.7 % (20.0-44.0); MEAN CORPUSCULAR HEMOGLOBIN 30 PG (26.0-33.0); MEAN CORPUSCULAR HGB CONC 33 g/dl (31.0-36.0); MEAN CORPUSCULAR VOLUME 91 fL (82-100); MONOCYTES # (AUTO) 0.3 /CMM (0.1-1.30); MONOCYTES % (AUTO) 1.9 % (2.0-12.0); NEUTROPHILS % (AUTO) 93.9 % (43.0-81.0); PLATELET COUNT (AUTO) 300 /CMM (150-450); RDW COEFFICIENT OF VARIATION 13.5 (11.5-15.0); RED BLOOD CELL COUNT(AUTO) 3.81 MIL/uL (4.0-5.2); WHITE BLOOD COUNT (AUTO) 14.9 K/uL (4.3-11.0)
[2017-04-22 05:26] LABS: CALCIUM, SERUM 8.7 mg/dL (8.5-10.1); CREATININE 0.6 mg/dL (0.6-1.3); POTASSIUM 3.8 mmol/L (3.5-5.1)
[2017-04-22 05:59] LABS: EOSINOPHILS % (MANUAL) 1 % (0-4); LYMPHOCYTES % (MANUAL) 7 % (16-48); NEUTROPHILS % (MANUAL) 92 (42-76)
--- NOTE | 2017-04-22 06:00 | NUR ---
CABLE WORKER HELPER -PT. HAD COMPLETE BEDBATH AT START OF SHIFT DUE TO [employer]. PT.CONT.ON NRB MASK/15L. TOLERATED WELL. PT. DOES BECOME SOB ON EXERTION. AFEBRILE. DENIES PAIN. PT.IS INDEPENDENT, BUT WEAK. AP LU HAS 2 PORTS PATENT TO FLUSH W/0.9%NS INFUSING AT TKO/IVPB'S. PT.HAS FUNGAL INFECTION AROUND ILANA AREA,THIGHS,VAGINA/MONS AREA. TREATED W/LOTRIMIN CREAM & ZGUARD. LAB PHONED AT 6AM REGARDING CO2 LEVEL (#47). WILL ENDORSE TO DAYSHIFT RN. LEVEL IS THE SAME YESTERDAY. PT.SLEPT FOR MOST PART OF THE NIGHT. NO S/S OF DISTRESS OR DISCOMFORT. CONT. POC.
--- NOTE | 2017-04-22 07:45 | NUR ---
ICU/RN: PT RECEIVED IN BED, EYES CLOSED, EASY TO AROUSE, A&OX4, BREATHING EVEN AND UNLABORED ON NRB O2 AT 15L/MIN O2 SAT 98%. HARI ML PATENT AND INTACT. FC DRAINING CLEAR YELLOW URINE TO GRAVITY. WILL CONT TO MONITOR
[2017-04-22] MEDS: ACETYLCYSTEINE 20% SOLN 800 MG/4 ML VIAL NEB SCH ×3 (07:54→23:19)
[2017-04-22] MEDS: IPRATROPIUM NEB FS 0.5 MG/2.5 ML AMPUL.NEB NEB SCH ×3 (07:54→23:19)
[2017-04-22] MEDS: FAMOTIDINE/PF INJ 20 MG/2 ML VIAL IV SCH ×2 (08:10→21:08)
[2017-04-22] MEDS: Z GUARD REMEDY 4 OZ OINT TP SCH (08:10)
[2017-04-22] MEDS: SERTRALINE HCL 50 MG TABLET PO SCH (08:10)
[2017-04-22] MEDS: CLOTRIMAZOLE 1% 15 GM TUBE TP SCH ×2 (08:10→16:04)
[2017-04-22] MEDS: LACTOBACILLUS RHAMNOSUS GG 1 EACH CAP.SPRINK PO SCH ×2 (08:10→16:03)
--- NOTE | 2017-04-22 10:30 | NUR ---
ICU/RN: PT O2 SAT DROPPED TO MID TO LOW 70'S ON NASAL CANNULA; REMAINS STABLE ON NON-REBREATHER. PER DIMAS GUNDERSON TO HAVE CT CHEST WITH CONTRAST TODAY
--- NOTE | 2017-04-22 15:20 | NUR ---
ICU/RN: SENT TO RADIOLOGY ACCOMPANIED BY RN FOR CHEST CT; STABLE ON NRB @ 15L/MIN.
[2017-04-22] MEDS ORDERED: CT SWABBABLE VALVE TRANS SET 1 EA INFUS.SET MC ONE (15:21)
[2017-04-22] MEDS ORDERED: IV NS 0.9% 250 ML IV ONE (15:21)
[2017-04-22] MEDS ORDERED: IOHEXOL-300 100 ML VIAL IV ONE (15:21)
[2017-04-22] MEDS: LEVOFLOXACIN 500 MG /D5W 100ML 500 MG in PREMIX 1 EA IV SCH (15:57)
--- NOTE | 2017-04-22 16:00 | NUR ---
ICU/RN: PT RETURN FROM CT; NO DISTRESS NOTED; HYGIENIC CARE RENDERED. TOLERATED LATE LUNCH 80% INTAKE
--- NOTE | 2017-04-22 18:45 | NUR ---
ICU/RN: PT NOTED WITH LABORED BREATHING, SOB ON O2 15L/MIN VIA NRB WHILE EATING DINNER. PRN BREATHING TX ADMINISTERED, PT NOW RELAXING CALMLY IN BED, NO DISTRESS NOTED.
--- NOTE | 2017-04-22 20:00 | NUR ---
GRAINING MACHINE OPERATOR; PT RECEIVED PT AAO X3-4,, BREATHING EVEN AND UNLABORED ON NRB O2 AT 15L/MIN O2 SAT 96-98%. HARI ML PATENT AND INTACT. FC DRAINING CLEAR YELLOW URINE TO GRAVITY. DENIED PAIN. AFEBRILE. V/S STABLE. KEEP MONITORING...
[2017-04-22] MEDS: MONTELUKAST SODIUM (10MG) 10 MG TABLET PO SCH (21:08)
[2017-04-22] MEDS: MIRTAZAPINE 15 MG TABLET PO SCH (21:08)
[2017-04-22] MEDS: ENOXAPARIN SODIUM 40 MG/0.4 ML DISP.SYRIN SQ SCH (21:09)
--- NOTE | 2017-04-22 23:00 | NUR ---
BAG BUNDLER: PT COMFORTABLY SLEEPING, DENIED PAIN. OFFERED TO TURN, SAID SHE IS COMFORTABLE. V/S STABLE. CONTINUE WITH NRM 15 L.KEEP MONITORING,.
[2017-04-23] VITALS (24 sets, daily range): BP systolic 126–154; BP diastolic 69–98
[2017-04-23] MEDS ORDERED: methylPREDNISolone SOD SUCC 40 MG/ML VIAL ONE (01:11)
[2017-04-23] MEDS: methylPREDNISolone SOD SUCC 40 MG/ML VIAL IV SCH ×3 (01:17→16:43)
[2017-04-23] MEDS: RACEPINEPHRINE HCL 2.25% NEB 0.5 ML VIAL.NEB IH SCH ×4 (01:37→19:48)
[2017-04-23] MEDS: IPRATROPIUM NEB FS 0.5 MG/2.5 ML AMPUL.NEB NEB PRN ×2 (01:37→11:09)
--- NOTE | 2017-04-23 07:10 | NUR ---
SCREEN CUTTER AND TRIMMER NOTES RECEIVED PATIENT AOX4 , ON NON REBREATHER MASK 15LPM WITH SPO2 OF 97% , ST 105 ON BEDSIDE MONITOR , FC DRAINING WELL VIA GRAVITY WITH CLEAR YELLOW URINE , HARI MIDLINE PATENT AND INTACT WITH NS @ TKO , ALL NEEDS ATTENDED , BED ON LOW AND LOCKED POSITION ,SIDE RAILS X2 ,CALL LIGHT WITHIN REACH , HOB @ 35 ,WILL CONTINUE TO MONITOR .
--- NOTE | 2017-04-23 07:10 | NUR ---
GRADING CLERK: BEDSIDE REPORT GIVEN TO ARLENE/RN, MADE AWARE ALL ORDERS.
[2017-04-23] MEDS: IPRATROPIUM NEB FS 0.5 MG/2.5 ML AMPUL.NEB NEB SCH ×3 (07:36→22:53)
[2017-04-23] MEDS: ACETYLCYSTEINE 20% SOLN 800 MG/4 ML VIAL NEB SCH ×3 (07:36→22:53)
[2017-04-23] MEDS: LACTOBACILLUS RHAMNOSUS GG 1 EACH CAP.SPRINK PO SCH ×2 (09:10→16:44)
[2017-04-23] MEDS: CLOTRIMAZOLE 1% 15 GM TUBE TP SCH ×2 (09:10→16:44)
[2017-04-23] MEDS: SERTRALINE HCL 50 MG TABLET PO SCH (09:10)
[2017-04-23] MEDS: FAMOTIDINE/PF INJ 20 MG/2 ML VIAL IV SCH ×2 (09:10→21:38)
[2017-04-23] MEDS: Z GUARD REMEDY 4 OZ OINT TP SCH (09:10)
--- NOTE | 2017-04-23 09:15 | NUR ---
CLINICAL QUALITY MANAGER NOTES SEEN AND EVALUATED BY DR CHINCHILLA , NOTIFIED PT CHEST CT RESULT , PT ON 15LPM WITH SPO2 OF 100% , PER MD TITRATE O2 TO NASAL CANNULA , ORDER PT EVAL AND OK FOR BED TO CHAIR .
--- NOTE | 2017-04-23 09:30 | NUR ---
FRONT LINE SUPERVISOR NOTES PLACED PT ON 6LPM NASAL CANNULA WITH SPO2 OF 90-92% , DENIES SOB AND DISCOMFORT , WILL CONTINUE TO MONITOR
--- NOTE | 2017-04-23 10:40 | NUR ---
ROUTE CARRIER NOTES PT PLACED ON 10LPM SIMPLE MASK , PT DESATURATES WITH SPO2 OF 83-85% ,VIA 6LPM NC , NO APPARENT DISTRESS , DENIES SOB , WILL CONTINUE TO MONITOR .
[2017-04-23] MEDS: PIPERACILLIN /TAZOBACTAM 3.375 G in IV D5W 50 ML IV SCH ×3 (11:05→23:35)
--- NOTE | 2017-04-23 11:10 | NUR ---
PARTS LISTER NOTES PLACED PT BACK TO 15LPM NON RE BREATHER MASK , PT COMPLAINS OF SOB , TACHYPNEIC AND DISTRESSED , CALLED RT YAA FOR PRN BREATHING TREATMENT. WILL CONTINUE TO MONITOR
--- NOTE | 2017-04-23 11:42 | NUR ---
NURSING DIRECTOR NOTES SEEN AND EVALUATED BY DR RIVERA , DISCUSSED CT SCAN RESULT , NOTIFIED O2 WAS TITRATED TO 6LPM NC @ 0930 PT DESATURATES AT LOW 80'S % , @ 1040 PT PLACED ON 10LPM SIMPLE MASK , PT DESATURATED @ 80% WITH DISTRESS AND MD MADISON AWARE
[2017-04-23] MEDS: LEVOFLOXACIN 500 MG /D5W 100ML 500 MG in PREMIX 1 EA IV SCH (16:44)
[2017-04-23] MEDS: IV NS 0.9% 250 ML IV PRN (16:52)
--- NOTE | 2017-04-23 19:45 | NUR ---
ICU/HANDYMAN REPORT RECEIVED FROM DAY NURSE, PT IS ALERT X 4. PT HAS NON REBREATHER MASK 15 LITERS. PT IS TOLERATING CURRENT O2 MASK WITH SATURATION AT 100%. PT IS SINUS RHYTHM 80'S-90'S. PT HAS MECHANICAL SOFT DIET, TOLERATING THIS WELL. PT HAS PATIÑO CATH DRAINING YELLOW URINE. THERE ARE A FEW SKIN ISSUES THAT ARE ADDRESSED ON THE FLOW SHEET. PT WAS TURNED AND REPOSITIONED FOR COMFORT AND CARE. WILL CONTINUE TO MONITOR THIS PT. CALL LIGHT WITHIN REACH.
[2017-04-23] MEDS: MONTELUKAST SODIUM (10MG) 10 MG TABLET PO SCH (21:34)
[2017-04-23] MEDS: MIRTAZAPINE 15 MG TABLET PO SCH (21:35)
[2017-04-23] MEDS: ENOXAPARIN SODIUM 40 MG/0.4 ML DISP.SYRIN SQ SCH (21:38)
--- NOTE | 2017-04-23 23:33 | NUR ---
ICU/MANAGER UTILIZATION MANAGEMENT RESPIRATORY THERAPIST AT BEDSIDE, PT WAS GIVEN BREATHING TREATMENT VIA HHN. PT TOLERATED THIS WELL. REMAINS CURRENTLY ON NON REBREATHER MASK WITH SATURATION AT 98%. PT WAS TURNED AND REPOSITIONED FOR COMFORT AND CARE. CALL LIGHT WITHIN REACH.
[2017-04-24] VITALS (24 sets, daily range): BP systolic 119–162; BP diastolic 68–88
[2017-04-24] MEDS: RACEPINEPHRINE HCL 2.25% NEB 0.5 ML VIAL.NEB IH SCH ×4 (01:12→20:04)
--- NOTE | 2017-04-24 01:40 | NUR ---
ICU/AUTOMOTIVE SERVICE PROFESSIONAL PT REFUSED AM CARE, PT STATED THAT SHE "WOULD LIKE TO SLEEP, MAYBE LATER." PT CURRENTLY DENIES ANY PAIN AND NO ACUTE RESPIRATORY DISTRESS SEEN. CALL LIGHT WITHIN REACH.
[2017-04-24] MEDS: methylPREDNISolone SOD SUCC 40 MG/ML VIAL IV SCH ×4 (02:12→18:07)
--- NOTE | 2017-04-24 04:55 | NUR ---
ICU/TAIL BOARD MAN AGAIN REFUSED AM CARE, SAID SHE WOULD LIKE TO SLEEP. CALL LIGHT WITHIN REACH, NO ACUTE DISTRESS SEEN. CURRENTLY DENIES ANY PAIN. CALL LIGHT WITHIN REACH.
[2017-04-24] MEDS: PIPERACILLIN /TAZOBACTAM 3.375 G in IV D5W 50 ML IV SCH ×3 (05:32→17:29)
--- NOTE | 2017-04-24 06:34 | NUR ---
ICU/SYSTEMS PROTECTION TECHNICIAN PRIMARY MD HERE TO SEE PT, AWAIT ANY NEW ORDERS.
--- NOTE | 2017-04-24 07:30 | NUR ---
LAPEL PADDER BLINDSTITCH; ASSESSMENT RECEIVED PT AWAKE AND ORIENTED X4. PT DENIES ANY PAIN AT THIS TIME. PT ON A NON-REBREATHER AT 15L SATURATION 100%. PATIÑO CATH INTACT DRAINING TO GRAVITY CLEAR YELLOW URINE. PT DOES STATE THAT WHEN NON REBREATHER MASK IS OFF AND WITH ACTIVITY SHE DOES FEEL SOB. WILL REVIEW ORDERS. CALL LIGHT WITH IN REACH.
[2017-04-24] MEDS: IPRATROPIUM NEB FS 0.5 MG/2.5 ML AMPUL.NEB NEB SCH ×3 (07:46→23:14)
[2017-04-24] MEDS: ACETYLCYSTEINE 20% SOLN 800 MG/4 ML VIAL NEB SCH ×3 (07:46→23:14)
[2017-04-24] MEDS: SERTRALINE HCL 50 MG TABLET PO SCH (09:15)
[2017-04-24] MEDS: LACTOBACILLUS RHAMNOSUS GG 1 EACH CAP.SPRINK PO SCH ×2 (09:15→16:09)
[2017-04-24] MEDS: CLOTRIMAZOLE 1% 15 GM TUBE TP SCH ×2 (09:18→16:09)
[2017-04-24] MEDS: Z GUARD REMEDY 4 OZ OINT TP SCH (09:24)
[2017-04-24] MEDS: FAMOTIDINE/PF INJ 20 MG/2 ML VIAL IV SCH ×2 (12:09→21:40)
[2017-04-24] MEDS: LEVOFLOXACIN 500 MG /D5W 100ML 500 MG in PREMIX 1 EA IV SCH (16:09)
[2017-04-24] MEDS: IV NS 0.9% 250 ML IV PRN ×2 (16:09→23:02)
--- NOTE | 2017-04-24 19:45 | NUR ---
ICU/OUTREACH AND EDUCATION SOCIAL WORKER REPORT RECEIVED FROM DAY NURSE, PT IS ALERT X 4. PT HAS NON REBREATHER MASK 15 LITERS. PT IS TOLERATING CURRENT O2 MASK WITH SATURATION AT 100%. PT IS SINUS RHYTHM 80'S-90'S. PT HAS MECHANICAL SOFT DIET, TOLERATING THIS WELL. PT HAS PATIÑO CATH DRAINING YELLOW URINE. THERE ARE A FEW SKIN ISSUES THAT ARE ADDRESSED ON THE FLOW SHEET. PT WAS TURNED AND REPOSITIONED FOR COMFORT AND CARE. WILL CONTINUE TO MONITOR THIS PT. CALL LIGHT WITHIN REACH
--- NOTE | 2017-04-24 19:55 | NUR ---
ICU/CREDIT ADVISOR RESPIRATORY THERAPIST AT BEDSIDE, PT WAS GIVEN BREATHING TREATMENT OF RACEMIC VIA HHN. PT TOLERATED THIS WELL. REMAINS CURRENTLY ON NON REBREATHER MASK WITH SATURATION AT 98%. PT WAS TURNED AND REPOSITIONED FOR COMFORT AND CARE. CALL LIGHT WITHIN REACH.
[2017-04-24] MEDS: MIRTAZAPINE 15 MG TABLET PO SCH (21:38)
[2017-04-24] MEDS: MONTELUKAST SODIUM (10MG) 10 MG TABLET PO SCH (21:38)
[2017-04-24] MEDS: ENOXAPARIN SODIUM 40 MG/0.4 ML DISP.SYRIN SQ SCH (21:38)
--- NOTE | 2017-04-24 23:30 | NUR ---
ICU/LABOR CREW SUPERVISOR RESPIRATORY THERAPIST AT BEDSIDE, PT WAS GIVEN BREATHING TREATMENT OF MUCOMYST VIA HHN. PT TOLERATED THIS WELL. REMAINS CURRENTLY ON NON REBREATHER MASK WITH SATURATION AT 97-100%. PT WAS TURNED AND REPOSITIONED FOR COMFORT AND CARE. CALL LIGHT WITHIN REACH.
[2017-04-25] VITALS (22 sets, daily range): BP systolic 104–139; BP diastolic 32–80
[2017-04-25] MEDS: methylPREDNISolone SOD SUCC 40 MG/ML VIAL IV SCH ×4 (00:35→23:48)
[2017-04-25] MEDS: PIPERACILLIN /TAZOBACTAM 3.375 G in IV D5W 50 ML IV SCH ×3 (00:35→11:36)
--- NOTE | 2017-04-25 01:10 | NUR ---
ICU/MEDICAL RECORDS SPECIALIST RT CHANGED OVER NON REBREATHER MASK OVER TO VENTURI MASK 15 LITERS AT 50%. WILL CONTINUE TO MONITOR THIS PT AND HERE SATURATION. PT HAD BEEN ON A NON REBREATHER MASK WITH SATURATION AT 100%, RT THOUGHT THIS WAS GOOD TIME KEYBOARD OPERATOR TO GET EXTRA 1 TO 1 CARE.
[2017-04-25] MEDS: RACEPINEPHRINE HCL 2.25% NEB 0.5 ML VIAL.NEB IH SCH ×4 (01:20→20:10)
--- NOTE | 2017-04-25 01:50 | NUR ---
ICU/IMPLEMENT MECHANIC PT'S SATURATION STATED TO DECREASE. PT PLACED BACK ON NON-REBREATHER MASK. WILL CONTINUE TO MONITOR THIS PT. CALL LIGHT WITHIN REACH.
--- NOTE | 2017-04-25 04:10 | NUR ---
ICU/FORM SETTER SUPERVISOR PT 'S AM LABS WERE DRAWN, AWAIT ANY CRITICAL LAB VALUES.
[2017-04-25 04:58] LABS: CALCIUM, SERUM 8.9 mg/dL (8.5-10.1); CHLORIDE 101 mmol/L (98-107); CREATININE 0.5 mg/dL (0.6-1.3); GLUCOSE 119 mg/dL (74-106); SODIUM SERUM 144 mmol/L (136-145); UREA NITROGEN, BLOOD 19 mg/dL (7-18)
[2017-04-25 05:22] LABS: CARBON DIOXIDE 48 mmol/L (21-32)
--- NOTE | 2017-04-25 05:35 | NUR ---
ICU/COMPENSATION AGENT CRITICAL LAB VALUE CALLED, CO2 WAS ELEVATED TO 48. THIS HAS BEEN THE TREND SINCE ADMISSION HOWEVER WILL PASS ON TO DAY NURSE.
--- NOTE | 2017-04-25 08:00 | NUR ---
MANAGER STRATEGIC MARKETING; ASSESSMENT RECEIVED PT SITTING ON CHAIR. PT DENIES ANY SOB WHILE ON NON REBREATHER MASK AT 15L. PT DOES STATES SHE DOES GET SOB WITH ACTIVITY. DISCUSSED POC AND THAT GOAL IS THAT SHE SITS UP IN CHAIR FOR ALL MEALS. PT AT THIS TIME AGREES AND WILL ENCOURAGE PT. PATIÑO CATH INTACT DRAINING TO GRAVITY. CLEAR YELLOW URINE. NO ACUTE DISTRESS NOTED WILL CONTINUE TO MONITOR. CALL LIGHT WITH IN REACH.
[2017-04-25] MEDS: SERTRALINE HCL 50 MG TABLET PO SCH (08:09)
[2017-04-25] MEDS: LACTOBACILLUS RHAMNOSUS GG 1 EACH CAP.SPRINK PO SCH ×2 (08:09→17:06)
[2017-04-25] MEDS: FAMOTIDINE/PF INJ 20 MG/2 ML VIAL IV SCH ×2 (08:09→21:02)
[2017-04-25] MEDS: Z GUARD REMEDY 4 OZ OINT TP SCH (08:19)
[2017-04-25] MEDS: CLOTRIMAZOLE 1% 15 GM TUBE TP SCH ×2 (08:25→17:06)
[2017-04-25] MEDS: IPRATROPIUM NEB FS 0.5 MG/2.5 ML AMPUL.NEB NEB SCH ×3 (08:35→23:20)
[2017-04-25] MEDS: ACETYLCYSTEINE 20% SOLN 800 MG/4 ML VIAL NEB SCH ×3 (08:35→23:20)
--- NOTE | 2017-04-25 14:30 | NUR ---
FAN BLADE TRUER; SKIN CARE/RASH NOTED RASH TO PTS BACK. PT DENIES ANY ITCHINESS OT PAIN TO BACK. PT STATES THAT SHE GETS "HEAT" RASH. PM CARE DONE WITH BED BATH LINEN CHANGED. WILL KEEP PT CLEAN AND DRY.
[2017-04-25] MEDS: LEVOFLOXACIN 500 MG /D5W 100ML 500 MG in PREMIX 1 EA IV SCH (15:24)
--- NOTE | 2017-04-25 16:45 | NUR ---
TRAY SERVER; RASH RASH APPEARS TO BE GETTING WORST. DR. LARSEN MADE AWARE NEW ORDERS TO CHANGE ZOSYN TO MERREM. DR. MUÑIZ AT BEDSIDE AND ASSESS PT. NEW ORDERS GIVEN TO D/C ZOSYN AND TO START PT ON BENADRYL. ORDERS ENTERED WILL F/U WITH PHARMACY
[2017-04-25] MEDS: diphenhydrAMINE HCL 50 MG CAPSULE PO SCH ×2 (17:06→23:48)
[2017-04-25] MEDS ORDERED: VANCOMYCIN 1 GM in IV D5W 250 ML IV ONE (17:30)
[2017-04-25 17:47] LABS: BASOPHILS # (AUTO) 0.1 /CMM (0.0-0.2); BASOPHILS % (AUTO) 0.7 % (0.0-2.0); EOSINOPHILS # (AUTO) 0.6 /CMM (0.0-0.7); EOSINOPHILS % (AUTO) 2.7 % (0.0-6.0); HEMATOCRIT 36 % (33-45); HEMOGLOBIN 11.7 g/dL (11.5-14.8); LYMPHOCYTES # (AUTO) 0.6 /CMM (0.8-4.8); LYMPHOCYTES % (AUTO) 2.8 % (20.0-44.0); MEAN CORPUSCULAR HEMOGLOBIN 30 PG (26.0-33.0); MEAN CORPUSCULAR HGB CONC 33 g/dl (31.0-36.0); MEAN CORPUSCULAR VOLUME 91 fL (82-100); MONOCYTES # (AUTO) 1.1 /CMM (0.1-1.30); MONOCYTES % (AUTO) 4.8 % (2.0-12.0); NEUTROPHILS # (AUTO) 19.7 /CMM (1.8-8.9); PLATELET COUNT (AUTO) 352 /CMM (150-450); RDW COEFFICIENT OF VARIATION 12.9 (11.5-15.0); RED BLOOD CELL COUNT(AUTO) 3.96 MIL/uL (4.0-5.2); WHITE BLOOD COUNT (AUTO) 22.2 K/uL (4.3-11.0)
[2017-04-25] MEDS: LORATADINE 10 MG TABLET PO SCH (17:49)
[2017-04-25] MEDS ORDERED: AZTREONAM 1 G in IV NS 0.9% 100 ML IV SCH (18:00)
--- NOTE | 2017-04-25 19:30 | NUR ---
RN INITIAL NOTES REPORT RECEIVED FROM DAY SHIFT NURSE. RECEIVED PATIENT IN BED, AWAKE, ALERT AND ORIENTED X 4. PT HAS NON REBREATHER MASK 15 LITERS. PT IS TOLERATING CURRENT O2 MASK WITH SATURATION AT 100%. PATIENT ON TELEMETRY MONITORING, REVEALING SINUS TACHYCARDIA, HR 115 BPM AT THIS TIME. PT HAS PATIÑO CATH DRAINING YELLOW URINE TO GRAVITY. THERE ARE A FEW SKIN ISSUES THAT ARE ADDRESSED ON THE FLOW SHEET, WILL PHOTOGRAPH PER PROTOCOL LATER IN SHIFT. NOTED WITH GENERALIZED BODY RASH, WILL MONITOR PROGRESSION OF RASH CLOSELY. PATIENT TURNED AND REPOSITIONED FOR COMFORT. BED IN LOWEST AND LOCKED POSITION, CALL LIGHT LEFT WITHIN EASY REACH. WILL CONTINUE TO MONITOR THE PATIENT CLOSELY
[2017-04-25] MEDS: MIRTAZAPINE 15 MG TABLET PO SCH (21:02)
[2017-04-25] MEDS: AZTREONAM 1 G in IV NS 0.9% 100 ML IV SCH (21:02)
[2017-04-25] MEDS: MONTELUKAST SODIUM (10MG) 10 MG TABLET PO SCH (21:02)
[2017-04-25] MEDS: ENOXAPARIN SODIUM 40 MG/0.4 ML DISP.SYRIN SQ SCH (21:07)
--- NOTE | 2017-04-25 21:50 | NUR ---
RN NOTES TRANSPORTED PATIENT TO JIE, ROOM 108 VIA ACLS PROTOCOL. PATIENT TOLERATED TRANSPORT WELL. WILL CONTINUE TO CLOSELY MONITOR
[2017-04-26] VITALS: BP 128/75
[2017-04-26] MEDS: RACEPINEPHRINE HCL 2.25% NEB 0.5 ML VIAL.NEB IH SCH ×4 (01:30→19:47)
[2017-04-26 04:00] VITALS: BP_SYST 106; BP_SYST 128; BP_DIAS 65; BP_DIAS 75
[2017-04-26] MEDS: methylPREDNISolone SOD SUCC 40 MG/ML VIAL IV SCH ×3 (06:12→18:05)
[2017-04-26] MEDS: diphenhydrAMINE HCL 50 MG CAPSULE PO SCH ×4 (06:12→23:41)
[2017-04-26] MEDS: IV NS 0.9% 250 ML IV PRN (06:13)
--- NOTE | 2017-04-26 06:26 | NUR ---
RN CLOSING NOTES PATIENT RESTING IN BED, REPOSITIONED FOR COMFORT. WILL ENDORSE THE PATIENT TO THE AM SHIFT NURSE FOR BETY
--- NOTE | 2017-04-26 07:10 | NUR ---
RN INITIAL NOTES RECEIVED PT ASLEEP, EASILY AROUSABLE. ON NON-REBREATHER AT 15LPM. HOB ELEVATED. NO SOB NOTED. DENIES ANY PAIN. HARI MIDLINE IN PLACE. FC IN PLACE. NO HEMATURIA NOTED. BLE ELEVATED. CALL LIGHT WITHIN REACH. WILL CONTINUE TO MONITOR.
[2017-04-26 07:54] LABS: CALCIUM, SERUM 8.6 mg/dL (8.5-10.1); CREATININE 0.4 mg/dL (0.6-1.3); POTASSIUM 4.7 mmol/L (3.5-5.1)
[2017-04-26 08:00] VITALS: BP 122/75
[2017-04-26] MEDS: FAMOTIDINE/PF INJ 20 MG/2 ML VIAL IV SCH ×2 (08:05→21:07)
[2017-04-26] MEDS: LACTOBACILLUS RHAMNOSUS GG 1 EACH CAP.SPRINK PO SCH ×2 (08:05→16:14)
[2017-04-26] MEDS: LORATADINE 10 MG TABLET PO SCH (08:05)
[2017-04-26] MEDS: Z GUARD REMEDY 4 OZ OINT TP SCH (08:06)
[2017-04-26] MEDS: AZTREONAM 1 G in IV NS 0.9% 100 ML IV SCH ×2 (08:06→21:07)
[2017-04-26] MEDS: SERTRALINE HCL 50 MG TABLET PO SCH (08:06)
[2017-04-26] MEDS: CLOTRIMAZOLE 1% 15 GM TUBE TP SCH ×2 (08:06→16:14)
[2017-04-26] MEDS: ACETYLCYSTEINE 20% SOLN 800 MG/4 ML VIAL NEB SCH ×3 (08:22→23:24)
[2017-04-26] MEDS: IPRATROPIUM NEB FS 0.5 MG/2.5 ML AMPUL.NEB NEB SCH ×3 (08:22→23:24)
--- NOTE | 2017-04-26 08:47 | NUR ---
RT NOTE: PATIENT STATES THAT SHE CAN NOT TOLERATE RACEMIC EPI VIA HHN TREATMENT. WILL FOLLOW UP WITH HER LATER. NURSE AWARE.
--- NOTE | 2017-04-26 09:00 | NUR ---
RN NOTES SEEN AND EXAMINED BY DR. CHINCHILLA. AWARE OF CURRENT LAB VALUES: SOSIUM 145, POTASSIUM 4.7, CHLORIDE 98, C02 43, BUN 17, CREA 0.4, GLUCOSE 97. ALSO AWARE OF CXR RESULT. PT ON NON-REBREATHER AT 15LPM. KEPT HOB ELEVATED. GIVEN BREATHING TX ORDERED. MD CHECKED PT'S BACK RASHES. MADE ORDERS NOTED AND CARRIED OUT. WILL CONTINUE TO MONITOR.
--- NOTE | 2017-04-26 09:27 | NUR ---
PATIENT PLACED ON 50% VENTI MASK @ 15 LPM PER . INSTRUCTED TO KEEP SP02> 90%. WILL CONTINUE TO MONITOR.
--- NOTE | 2017-04-26 10:59 | NUR ---
PATIENT PLACED BACK ON NON-REBREATHER @15 LPM DUE TO SP02 DROPPING TO 82%.
[2017-04-26 12:00] VITALS: BP 121/75
[2017-04-26] MEDS: LEVOFLOXACIN 500 MG /D5W 100ML 500 MG in PREMIX 1 EA IV SCH (15:45)
[2017-04-26 16:00] VITALS: BP 116/73
--- NOTE | 2017-04-26 18:40 | NUR ---
RN CLOSING NOTES PT REMAINS STABLE. NO SIGNIFICANT CHANGE NOTED. NO SOB NOTED. REMAINS ON NON-REBREATHER AT 15PM. KEPT HOB ELEVATED. DENIES ANY PAIN. MIDLINE IN PLACE. FC IN PLACE. ADEQUATE OUTPUT NOTED. KEPT CLEAN AND DRY. ASSISTED IN REPOSITIONING. BLE ELEVATED. KEPT COMFORTABLE. ALL NEEDS ATTENDED AND MET. CALL LIGHT WITHIN REACH. WILL ENDORSE FOR CONTINUITY OF CARE.
[2017-04-26 20:00] VITALS: BP 135/77
[2017-04-26] MEDS: MONTELUKAST SODIUM (10MG) 10 MG TABLET PO SCH (21:07)
[2017-04-26] MEDS: ENOXAPARIN SODIUM 40 MG/0.4 ML DISP.SYRIN SQ SCH (21:08)
[2017-04-26] MEDS: MIRTAZAPINE 15 MG TABLET PO SCH (21:08)
[2017-04-27] VITALS: BP 123/74
[2017-04-27] MEDS: methylPREDNISolone SOD SUCC 40 MG/ML VIAL IV SCH ×3 (00:09→12:34)
[2017-04-27] MEDS: RACEPINEPHRINE HCL 2.25% NEB 0.5 ML VIAL.NEB IH SCH ×4 (01:13→20:19)
[2017-04-27 04:00] VITALS: BP 131/78
[2017-04-27] MEDS: diphenhydrAMINE HCL 50 MG CAPSULE PO SCH ×4 (05:10→23:50)
[2017-04-27 06:33] LABS: EOSINOPHILS # (AUTO) 0.2 /CMM (0.0-0.7); HEMATOCRIT 37 % (33-45); LYMPHOCYTES # (AUTO) 0.7 /CMM (0.8-4.8); LYMPHOCYTES % (AUTO) 3.5 % (20.0-44.0); MEAN CORPUSCULAR HEMOGLOBIN 30 PG (26.0-33.0); MEAN CORPUSCULAR HGB CONC 33 g/dl (31.0-36.0); MEAN CORPUSCULAR VOLUME 92 fL (82-100); MONOCYTES # (AUTO) 0.5 /CMM (0.1-1.30); MONOCYTES % (AUTO) 2.6 % (2.0-12.0); NEUTROPHILS # (AUTO) 17.7 /CMM (1.8-8.9); NEUTROPHILS % (AUTO) 92.9 % (43.0-81.0); PLATELET COUNT (AUTO) 355 /CMM (150-450); RED BLOOD CELL COUNT(AUTO) 4.03 MIL/uL (4.0-5.2); WHITE BLOOD COUNT (AUTO) 19.1 K/uL (4.3-11.0)
[2017-04-27 06:54] LABS: CALCIUM, SERUM 8.9 mg/dL (8.5-10.1); CREATININE 0.4 mg/dL (0.6-1.3); POTASSIUM 4.2 mmol/L (3.5-5.1)
[2017-04-27] MEDS: ACETYLCYSTEINE 20% SOLN 800 MG/4 ML VIAL NEB SCH ×2 (07:25→15:30)
[2017-04-27] MEDS: IPRATROPIUM NEB FS 0.5 MG/2.5 ML AMPUL.NEB NEB SCH ×2 (07:25→15:30)
[2017-04-27 08:00] VITALS: BP_SYST 129; BP_DIAS 78; BP_DIAS 80
[2017-04-27] MEDS: SERTRALINE HCL 50 MG TABLET PO SCH (08:36)
[2017-04-27] MEDS: LACTOBACILLUS RHAMNOSUS GG 1 EACH CAP.SPRINK PO SCH ×2 (08:36→17:02)
[2017-04-27] MEDS: FAMOTIDINE/PF INJ 20 MG/2 ML VIAL IV SCH ×2 (08:36→21:35)
[2017-04-27] MEDS: LORATADINE 10 MG TABLET PO SCH (08:36)
[2017-04-27] MEDS: Z GUARD REMEDY 4 OZ OINT TP SCH (08:37)
[2017-04-27] MEDS: CLOTRIMAZOLE 1% 15 GM TUBE TP SCH ×2 (08:37→17:03)
[2017-04-27] MEDS: AZTREONAM 1 G in IV NS 0.9% 100 ML IV SCH ×2 (08:37→20:39)
--- NOTE | 2017-04-27 10:18 | NUR ---
JIE RN NOTE 0720: received patient awake, A/Ox4. No respiratory distress noted at this time but on 15LPM of O2 via NRB mask. Per previous shift, patient easily desats when titrated off NRB, will keep on NRB for now and will monitor. Kept HOB elevated. No c/o pain at this time. With HARI midline intact. SR 90's on the monitor. Foster cath intact, noted with clear yellow urine drained to BSD. 0900: S/E by Dr. Solano, checked on skin and encouraged patient to participate with PT if may go to chair to avoid further skin breakdown. also ordered new doses for psyche meds. 0920: S/E by Dr. Vasquez, no new order at this time. Continue NRB mask. 1000: No any significant changes noted at this time.
[2017-04-27 12:00] VITALS: BP 105/83
[2017-04-27 16:00] VITALS: BP 127/76
[2017-04-27] MEDS: LEVOFLOXACIN 500 MG /D5W 100ML 500 MG in PREMIX 1 EA IV SCH (16:49)
--- NOTE | 2017-04-27 19:34 | NUR ---
RN NOTE. RECEIVED THE PT REST ON THE BED. AWAKE, ALERT, FOLLOW COMMANDS. TRANSCRIBING OPERATOR HEAD SHOWING S TACH AT THIS TIME RATE IS 115. OXYGEN NONREBREATHER 100%. FC PATENT. URINE DRAINING, IV RT UPPER ARM MID LINE. TKO @5ML/H. WILL CONTINUE TO MONITOR VITALS.
[2017-04-27 20:00] VITALS: BP_SYST 127; BP_SYST 143; BP_DIAS 76; BP_DIAS 83
[2017-04-27] MEDS: IV NS 0.9% 250 ML IV PRN (20:46)
[2017-04-27] MEDS: MIRTAZAPINE 15 MG TABLET PO SCH (21:35)
[2017-04-27] MEDS: MONTELUKAST SODIUM (10MG) 10 MG TABLET PO SCH (21:35)
[2017-04-27] MEDS: ENOXAPARIN SODIUM 40 MG/0.4 ML DISP.SYRIN SQ SCH (21:36)
[2017-04-28] VITALS: BP 140/87
[2017-04-28] MEDS: IPRATROPIUM NEB FS 0.5 MG/2.5 ML AMPUL.NEB NEB SCH ×4 (00:08→23:09)
[2017-04-28] MEDS: ACETYLCYSTEINE 20% SOLN 800 MG/4 ML VIAL NEB SCH ×4 (00:08→23:09)
[2017-04-28] MEDS: RACEPINEPHRINE HCL 2.25% NEB 0.5 ML VIAL.NEB IH SCH ×4 (01:30→19:31)
[2017-04-28 04:00] VITALS: BP_SYST 109; BP_SYST 127; BP_DIAS 66; BP_DIAS 78
--- NOTE | 2017-04-28 04:39 | NUR ---
RN NOTE. AM CARE, ORAL CARE, BED BATH GIVEN. LINEN CHANGED. REMAINING SAME OXYGEN NONREBREATHER TOLERATED WELL. SAT 98%. GROCERY SUPERVISOR SHOWING S TACH. RATE IS AT THIS TIME 111. FC PATENT. URINE DRAINING. AFEBRILE. IV RT HAND TKO @5ML/H. HOB ELEVATED. WILL CONTINUE TO MONITOR VITALS.
[2017-04-28] MEDS: diphenhydrAMINE HCL 50 MG CAPSULE PO SCH ×4 (05:16→23:49)
--- NOTE | 2017-04-28 07:15 | NUR ---
RN JIE RECEIVED PATIENT ASLEEP ON BED ON NON REBREATHING MASK AT 15 LITERS SATURATION 100% AFEBRILE SINUS TACHYCARDIA ON THE MONITOR NO COMPLAINTS MADE PATIENT SEEMS CALM WITH PATIÑO CATHETER DRAINING TO YELLOWISH URINE ADEQUATE IN AMOUNT
[2017-04-28 08:00] VITALS: BP 113/78
[2017-04-28] MEDS: CLOTRIMAZOLE 1% 15 GM TUBE TP SCH ×2 (09:05→17:13)
[2017-04-28] MEDS: SERTRALINE HCL 50 MG TABLET PO SCH (09:06)
[2017-04-28] MEDS: AZTREONAM 1 G in IV NS 0.9% 100 ML IV SCH ×2 (09:06→21:16)
[2017-04-28] MEDS: FAMOTIDINE/PF INJ 20 MG/2 ML VIAL IV SCH ×2 (09:07→21:16)
[2017-04-28] MEDS: LACTOBACILLUS RHAMNOSUS GG 1 EACH CAP.SPRINK PO SCH ×2 (09:07→17:13)
[2017-04-28] MEDS: predniSONE 20 MG TABLET PO SCH (09:07)
[2017-04-28] MEDS: Z GUARD REMEDY 4 OZ OINT TP SCH (09:07)
[2017-04-28] MEDS: LORATADINE 10 MG TABLET PO SCH (09:07)
--- NOTE | 2017-04-28 09:15 | NUR ---
RN JIE SEEN AND EXAMINED BY DR. RIVERA ORDERED TO PUT PATIENT ON 6 LITERS NASAL CANNULA AND GET BLOOD GAS AFTER AND HOUR RT IS NOTIFIED OF MD'S ORDER
--- NOTE | 2017-04-28 09:45 | NUR ---
RN JIE PATIENT COMPLAINED OF SOB ASKED TO INCREASE 02, INCREASED 02 TO 8 LITERS AFTER 10 MINS, SHE STILL COMPLAINED OF SOB PLACED PATIENT ON NON REBREATHING MASK AT 15 LITERS, RT WAS NOTIFIED
--- NOTE | 2017-04-28 10:02 | NUR ---
RT PATIENT UNABLE TO TOLERATE O2 TITRATION FROM NRB MASK WITH NOTED DESATURATION AND SOB. DR RIVERA NOTIFIED.
[2017-04-28 12:00] VITALS: BP_SYST 103; BP_SYST 110; BP_DIAS 69; BP_DIAS 70
--- NOTE | 2017-04-28 13:35 | NUR ---
RN JIE SEEN BY PT, PATIENT SAID SHE DOES NOT WANT TO STAND OR WALK WITH THE PT AT THE TIME SHE MOVED IN BED WITH ASSISTANCE AND NO DESATURATION NOTED
--- NOTE | 2017-04-28 14:00 | NUR ---
RN JIE RESPIRATORY DISTRESS SEEN, INCREASED NON REBREATHING MASK TO 15 LITERS AND INFORM RT OF PATIENT'S CONDITION RT SAW PATIENT
[2017-04-28] MEDS: LEVOFLOXACIN 500 MG /D5W 100ML 500 MG in PREMIX 1 EA IV SCH (15:11)
[2017-04-28] MEDS: IV NS 0.9% 250 ML IV PRN (15:12)
[2017-04-28 16:00] VITALS: BP 110/74
[2017-04-28 20:00] VITALS: BP 124/83
--- NOTE | 2017-04-28 20:00 | NUR ---
JIE RN NOTES RECEIVED PT IN BED, AWAKE, A/O X3, WATCHING TV. TELE READS ST AT 108 BPM. ON NONREBREATHER MASK AT 15 LPM, MILD SOB, SPO2 >98%. PER AM NURSE, PT UNABLE TO TOLERATE NASAL CANULA/SIMPLE MASK. HARI 18G ML IN PLACE, RUNNING NS AT TKO. PATIÑO CATH PRESENT, DRAINING WELL. HOB ELEVATED, CALL LIGHT WITHIN REACH. ALL NEEDS MET.
--- NOTE | 2017-04-28 21:00 | NUR ---
JIE RN NOTES PT REFUSED BED BATH BUT AGREED TO HAVING THE LINENS CHANGED. DENIES PAIN OR DISCOMFORT. ALL NEEDS MET. SNACKS PROVIDED PER REQUEST. CALL LIGHT WITHIN REACH.
[2017-04-28] MEDS: MIRTAZAPINE 15 MG TABLET PO SCH (21:16)
[2017-04-28] MEDS: MONTELUKAST SODIUM (10MG) 10 MG TABLET PO SCH (21:16)
[2017-04-28] MEDS: ENOXAPARIN SODIUM 40 MG/0.4 ML DISP.SYRIN SQ SCH (21:25)
[2017-04-29] VITALS (7 sets, daily range): BP systolic 115–148; BP diastolic 66–80
--- NOTE | 2017-04-29 | NUR ---
JIE RN NOTES PT WAS ASLEEP. PT AWAKEN FOR VITALS AND MEDS. DENIES ANY PAIN OF DISCOMFORT. ALL NEEDS MET.
[2017-04-29] MEDS: RACEPINEPHRINE HCL 2.25% NEB 0.5 ML VIAL.NEB IH SCH ×4 (01:14→20:17)
--- NOTE | 2017-04-29 03:59 | NUR ---
JIE RN NOTES PT IS ASLEEP. NO S/S OF DISCOMFORT.
[2017-04-29] MEDS: diphenhydrAMINE HCL 50 MG CAPSULE PO SCH ×3 (05:12→17:04)
[2017-04-29 06:55] LABS: RED BLOOD CELL COUNT(AUTO) 4.25 MIL/uL (4.0-5.2); WHITE BLOOD COUNT (AUTO) 19.4 K/uL (4.3-11.0)
[2017-04-29 06:56] LABS: BASOPHILS % (AUTO) 0.2 % (0.0-2.0); EOSINOPHILS # (AUTO) 0.5 /CMM (0.0-0.7); EOSINOPHILS % (AUTO) 2.6 % (0.0-6.0); HEMATOCRIT 39 % (33-45); HEMOGLOBIN 12.3 g/dL (11.5-14.8); LYMPHOCYTES # (AUTO) 1.5 /CMM (0.8-4.8); LYMPHOCYTES % (AUTO) 7.9 % (20.0-44.0); MEAN CORPUSCULAR HEMOGLOBIN 29 PG (26.0-33.0); MEAN CORPUSCULAR HGB CONC 32 g/dl (31.0-36.0); MEAN CORPUSCULAR VOLUME 92 fL (82-100); MONOCYTES % (AUTO) 5.2 % (2.0-12.0); NEUTROPHILS # (AUTO) 16.3 /CMM (1.8-8.9); NEUTROPHILS % (AUTO) 84.1 % (43.0-81.0); PLATELET COUNT (AUTO) 349 /CMM (150-450); RDW COEFFICIENT OF VARIATION 13.2 (11.5-15.0)
--- NOTE | 2017-04-29 07:37 | NUR ---
JIE RN NOTES RECEIVED PT IN BED, RESTING COMFORTABLY , A/O X3 ON TELE MONITOR READS ST AT 100 BPM. ON NONREBREATHER MASK AT 15 LPM, MILD SOB, SPO2 >98%.[ER DESKTOP PUBLISHING OPERATOR NURSE , PT UNABLE TO TOLERATE NASAL CANULA/SIMPLE MASK. HARI 18G ML IN PLACE, RUNNING NS AT TKO. PATIÑO CATH WITH YELLOW COLOR URINE PRESENT, DRAINING WELL. HOB ELEVATED, CALL LIGHT WITHIN REACH. ALL NEEDS MET..ED IN LOWEST AND LOCKED POSITION , WILL CONT TO MONITOR CLOSELY Addendum: 04/29/17 at 0740 by ANGELY SNYDER RN BED LOCKED AND LOWEST POSITION
[2017-04-29 08:09] LABS: CHLORIDE 98 mmol/L (98-107); POTASSIUM 4.1 mmol/L (3.5-5.1); SODIUM SERUM 143 mmol/L (136-145)
[2017-04-29 08:10] LABS: CALCIUM, SERUM 9.2 mg/dL (8.5-10.1); CARBON DIOXIDE 49 mmol/L (21-32); CREATININE 0.4 mg/dL (0.6-1.3); GLUCOSE 86 mg/dL (74-106); UREA NITROGEN, BLOOD 17 mg/dL (7-18)
[2017-04-29] MEDS: IPRATROPIUM NEB FS 0.5 MG/2.5 ML AMPUL.NEB NEB SCH ×3 (08:16→22:57)
[2017-04-29] MEDS: ACETYLCYSTEINE 20% SOLN 800 MG/4 ML VIAL NEB SCH ×3 (08:16→22:57)
[2017-04-29] MEDS: FAMOTIDINE/PF INJ 20 MG/2 ML VIAL IV SCH ×2 (09:03→20:15)
[2017-04-29] MEDS: SERTRALINE HCL 50 MG TABLET PO SCH (09:03)
[2017-04-29] MEDS: AZTREONAM 1 G in IV NS 0.9% 100 ML IV SCH ×2 (09:03→21:45)
[2017-04-29] MEDS: CLOTRIMAZOLE 1% 15 GM TUBE TP SCH ×2 (09:03→16:27)
[2017-04-29] MEDS: LORATADINE 10 MG TABLET PO SCH (09:03)
[2017-04-29] MEDS: predniSONE 20 MG TABLET PO SCH (09:03)
[2017-04-29] MEDS: LACTOBACILLUS RHAMNOSUS GG 1 EACH CAP.SPRINK PO SCH ×2 (09:03→16:27)
[2017-04-29] MEDS: Z GUARD REMEDY 4 OZ OINT TP SCH (09:04)
--- NOTE | 2017-04-29 09:19 | NUR ---
jt rn note seen by rt on breathing tx as ordered
--- NOTE | 2017-04-29 10:00 | NUR ---
JIE RN NOTE SEEN BY DR AMBROSE FUNERAL HOME MANAGER NOTIFIED THAT CO2 49 AWARE THAT PATIENT ON NONREBREATHER MASK, SAT 100% NO NEW ORDER GIVEN AT THIS TIME WILL CONT TO MONITOR CLOSELY
--- NOTE | 2017-04-29 10:46 | NUR ---
JIE RN NOTE SEEN BY PT ABLE TO MAKE FEW STEPS WITH WALKER AROUND THE BED ,ALL NEEDS ATTENDED ,WILL CONT TO MONITOR CLOSELY
--- NOTE | 2017-04-29 12:19 | NUR ---
LOCAL OWNER OPERATOR TRUCK DRIVER NOTE PER DR FLORES OK TO PLACE SIMPLE MASK 6L BUT AFETE PLACING FOR FEW MIN ,PATIENT BECOME TACHYPNEIC HR 118 , AN C\O SOB , PLACED BACK TO NONREBREATHER MASK AND CALLED RT TO DO BREATHING TX ,WILL FOLLOW UP
[2017-04-29] MEDS: LEVOFLOXACIN 500 MG /D5W 100ML 500 MG in PREMIX 1 EA IV SCH (15:38)
--- NOTE | 2017-04-29 18:20 | NUR ---
DOOR ASSEMBLER NOTE HAVING DINER , ABLE TO EAT SELF , STILL ON NONREBREATHER MASK SAT 100%, WILL CONT TO MONITOR CLOSELY, NOT IN ACUTE DISTRESS Addendum: 04/29/17 at 1903 by ANGELY SNYDER RN MEI PALENCIA SHELL GRADER SEEN PATIENT WITH NEW ORDER GIVEN
[2017-04-29] MEDS ORDERED: FEE PK DOSING 1 MIN EA MC ONE (19:07)
--- NOTE | 2017-04-29 20:00 | NUR ---
JIE RN NOTES RECEIVED PTS ON BED AWAKE ALERT AND VERBALLY RESPONSIVE , ABLE TO MAKE NEEDS KNOWN . PTS ON TELE ST ON THE MONITOR , ON NASAL MASK WITH NONREBREATHER AT 15 LITERS SATING 100% NO SOB NO DISTRESS NOTED NO COMPLAIN OF PAIN AT THIS TIME.ALL NEEDS ATTENDED TO CALL LIGHT WITHIN REACH , ALL DUE MEDS GIVEN ORDERED, WITH F/C INTACT AND PATENT DRAINING WITH YELLOWISH URINE OUTPUT.V/S STABLE AND AFEBRILE.
[2017-04-29] MEDS: VANCOMYCIN 1 GM in IV D5W 250 ML IV SCH (20:10)
[2017-04-29] MEDS: ENOXAPARIN SODIUM 40 MG/0.4 ML DISP.SYRIN SQ SCH (20:16)
[2017-04-29] MEDS: MIRTAZAPINE 15 MG TABLET PO SCH (21:46)
[2017-04-29] MEDS: MONTELUKAST SODIUM (10MG) 10 MG TABLET PO SCH (21:46)
[2017-04-30] VITALS: BP 127/75
[2017-04-30] MEDS: diphenhydrAMINE HCL 50 MG CAPSULE PO SCH ×4 (00:46→17:16)
[2017-04-30] MEDS: RACEPINEPHRINE HCL 2.25% NEB 0.5 ML VIAL.NEB IH SCH ×4 (01:19→19:27)
[2017-04-30 04:00] VITALS: BP_SYST 119; BP_SYST 120; BP_DIAS 70; BP_DIAS 78
--- NOTE | 2017-04-30 07:26 | NUR ---
JIE RN NOTES ENDORSE PTS TO RN DAY SHIFT FOR CONTINUITY OF CARE , PTS REMAINS ON NON REBREATHER MASK AT 15 LITERS ,SATING 100 %.
[2017-04-30] MEDS: IPRATROPIUM NEB FS 0.5 MG/2.5 ML AMPUL.NEB NEB SCH ×3 (07:38→22:59)
[2017-04-30] MEDS: ACETYLCYSTEINE 20% SOLN 800 MG/4 ML VIAL NEB SCH ×3 (07:38→22:59)
[2017-04-30 08:00] VITALS: BP 129/71
[2017-04-30] MEDS: LACTOBACILLUS RHAMNOSUS GG 1 EACH CAP.SPRINK PO SCH ×2 (08:10→17:17)
[2017-04-30] MEDS: VANCOMYCIN 1 GM in IV D5W 250 ML IV SCH (08:10)
[2017-04-30] MEDS: predniSONE 20 MG TABLET PO SCH (08:10)
[2017-04-30] MEDS: CLOTRIMAZOLE 1% 15 GM TUBE TP SCH ×2 (08:11→17:24)
[2017-04-30] MEDS: SERTRALINE HCL 50 MG TABLET PO SCH (08:11)
[2017-04-30] MEDS: Z GUARD REMEDY 4 OZ OINT TP SCH (08:11)
[2017-04-30] MEDS: FAMOTIDINE/PF INJ 20 MG/2 ML VIAL IV SCH ×2 (08:11→20:31)
[2017-04-30] MEDS: LORATADINE 10 MG TABLET PO SCH (08:11)
--- NOTE | 2017-04-30 08:15 | NUR ---
JIE/RN: Dr. Solano at bedside; updated on pt status. Abn labs and respiratory status dw MD. Per MD, place pt on simple mask with O2 at 10L/Min. Placed on continuous pulse ox readings. Instructed to call staff for assistance, SOB. Verbalized understanding. Will cont to monitor pt.
[2017-04-30 08:32] LABS: CALCIUM, SERUM 9.1 mg/dL (8.5-10.1); CHLORIDE 97 mmol/L (98-107); CREATININE 0.4 mg/dL (0.6-1.3); GLUCOSE 103 mg/dL (74-106); POTASSIUM 4.4 mmol/L (3.5-5.1); SODIUM SERUM 140 mmol/L (136-145); UREA NITROGEN, BLOOD 14 mg/dL (7-18)
[2017-04-30 09:05] LABS: CARBON DIOXIDE 50 mmol/L (21-32)
[2017-04-30] MEDS: AZTREONAM 1 G in IV NS 0.9% 100 ML IV SCH (09:23)
--- NOTE | 2017-04-30 10:16 | NUR ---
PLACED BACK ON NON REBREATHER @ 15 LPM O2 FLOW, PT CAN'T TOLERATE ON SIMPLE MASK @ 10 LPM. SPO2 @ 83%. Addendum: 04/30/17 at 1845 by HILARIO FAIRBANKS RT Amended: Links added.
--- NOTE | 2017-04-30 10:20 | NUR ---
Tele/RN: Pt c/o SOB, wheezing, O2 Sat at 82-84%. Placed back on NRB at 15L/min with improvement in symptoms. Will titrate O2 down per MD order as tolerated.
--- NOTE | 2017-04-30 10:45 | NUR ---
Tele/RN: Dr Vasquez rounds; updated on pt status. O2 Sat on NRB 100%, denies discomfort. Updated on abn labs, resp status. No new orders. Continue current tx per MD.
[2017-04-30 12:00] VITALS: BP_SYST 119; BP_SYST 127; BP_DIAS 67; BP_DIAS 70
--- NOTE | 2017-04-30 12:00 | NUR ---
Tele/RN: Extensive nataly Alston NP regarding POC, imaging, discharge. Educated extensively. Awaiting PT eval prior to discharge. Addendum: 04/30/17 at 1437 by SHALONDA AVINA RN Wrong entry
--- NOTE | 2017-04-30 14:23 | NUR ---
Tele/RN: Pt ambulating using walker in hallway with PT requiring standby moderate assist. Daughter thoroughly educated on POC. Addendum: 04/30/17 at 1437 by SHALONDA AVINA RN Wrong entry
--- NOTE | 2017-04-30 14:33 | NUR ---
Tele/RN: Discharge instructions provided to daughter Nora, verbalized understanding. Daughter to set up f/u appt with PMD; copy of chart and disc provided to daughter for MD appt. Pt left unit via wheelchair in stable condition accompanied by LESLIE. Daughter with all of pt belongings. Tele box returned to tele desk. DC'd to [facility] via private car driven by daughter. Addendum: 04/30/17 at 1436 by SHALONDA AVINA RN wrong entry
--- NOTE | 2017-04-30 15:00 | NUR ---
Tele/RN: Pt with physical therapy; OOB. SOB with exertion noted. O2 sat maintained over 90%. Assisted back to bed.
[2017-04-30 16:00] VITALS: BP 119/70
[2017-04-30] MEDS: LEVOFLOXACIN 500 MG /D5W 100ML 500 MG in PREMIX 1 EA IV SCH (17:16)
[2017-04-30 20:00] VITALS: BP 126/75
[2017-04-30] MEDS ORDERED: VANCOMYCIN 0.75 GM in IV D5W 250 ML IV SCH (20:00)
--- NOTE | 2017-04-30 20:00 | NUR ---
ASSISTANT COACH NOTES RECEIVED PTS ON BED AWAKE ALERT AND RESPONSIVE , CONTINUE ON NON REBREATHER MASK AT 15 LITERS SATING 100%, ON TELE ST ON THE MONITOR , NO SOB NO DISTRESS NO C/O OF PAIN NOTED AT THIS TIME PTS IS COMFORTABLE IN BED .,F/C IN SITU INTACT AND PATENT DRAINING WITH YELLOWISH URINE OUTPUT. ALL NEEDS ATTENDED TOO CALL LIGHT WITHIN EASY REACH ALL DUE MEDS GIVEN ORDERED , V/S STABLE AFEBRILE , BED IN LOCKED POSITION ON SAFETY MEASURES MAINTAINED AT ALL TIMES, KEPT PT CLEAN DRY AND COMFORTABLE.
[2017-04-30] MEDS: ENOXAPARIN SODIUM 40 MG/0.4 ML DISP.SYRIN SQ SCH (20:32)
[2017-04-30] MEDS ORDERED: MEROPENEM 500 MG in IV NS 0.9% 50 ML IV SCH (21:00)
[2017-04-30] MEDS: MONTELUKAST SODIUM (10MG) 10 MG TABLET PO SCH (21:43)
[2017-04-30] MEDS: MIRTAZAPINE 15 MG TABLET PO SCH (21:43)
[2017-04-30] MEDS: MEROPENEM 500 MG in IV NS 0.9% 50 ML IV SCH (21:46)
[2017-05-01] VITALS (23 sets, daily range): BP systolic 100–126; BP diastolic 18–78
[2017-05-01] MEDS: RACEPINEPHRINE HCL 2.25% NEB 0.5 ML VIAL.NEB IH SCH ×4 (01:01→19:45)
--- NOTE | 2017-05-01 06:24 | NUR ---
INCOME TAX ADMINISTRATOR NOTES PTS ON BED COMFORTABLE , NO SOB NO DISTRESS NOTED REMAINS ON NON REBREATHER MASK AT 15 LITERS SATING 99% , WILL ENDORSE TO RN DAY SHIFT FOR CONTINUITY OF CARE.
[2017-05-01] MEDS: ACETYLCYSTEINE 20% SOLN 800 MG/4 ML VIAL NEB SCH ×3 (07:30→23:48)
[2017-05-01] MEDS: IPRATROPIUM NEB FS 0.5 MG/2.5 ML AMPUL.NEB NEB SCH ×3 (07:30→23:49)
[2017-05-01 07:44] LABS: CALCIUM, SERUM 9.3 mg/dL (8.5-10.1); CHLORIDE 99 mmol/L (98-107); CREATININE 0.4 mg/dL (0.6-1.3); GLUCOSE 108 mg/dL (74-106); POTASSIUM 3.8 mmol/L (3.5-5.1); SODIUM SERUM 145 mmol/L (136-145); UREA NITROGEN, BLOOD 14 mg/dL (7-18)
[2017-05-01 08:07] LABS: CARBON DIOXIDE 50 mmol/L (21-32)
[2017-05-01] MEDS: Z GUARD REMEDY 4 OZ OINT TP SCH (09:00)
--- NOTE | 2017-05-01 10:00 | NUR ---
PATIENTA/A /O TIMES 4 NO ACUTE DISTRESS NOTED,BUT GETS SOB ON ANY ACTIVTY
[2017-05-01] MEDS: FAMOTIDINE/PF INJ 20 MG/2 ML VIAL IV SCH ×2 (10:47→20:35)
[2017-05-01] MEDS: SERTRALINE HCL 50 MG TABLET PO SCH (10:47)
[2017-05-01] MEDS: MEROPENEM 500 MG in IV NS 0.9% 50 ML IV SCH ×2 (10:47→20:33)
[2017-05-01] MEDS: VANCOMYCIN 1 GM in IV D5W 250 ML IV SCH ×2 (10:47→21:20)
[2017-05-01] MEDS: predniSONE 20 MG TABLET PO SCH (10:48)
[2017-05-01] MEDS: LORATADINE 10 MG TABLET PO SCH (10:48)
[2017-05-01] MEDS: LACTOBACILLUS RHAMNOSUS GG 1 EACH CAP.SPRINK PO SCH ×2 (10:48→16:30)
[2017-05-01] MEDS: CLOTRIMAZOLE 1% 15 GM TUBE TP SCH ×2 (10:56→16:30)
--- NOTE | 2017-05-01 12:10 | NUR ---
PT PLACED ON BIPAP PER PATIENT REQUEST DUE TO INCREASED WOB. BREATH SOUNDS DIMINISHED BILATERAL. BIPAP SETTINGS BELOW ORDER: IPAP 20 EPAP 8 RATE 10 FIO2 80% AMBUBAG @ BEDSIDE. Addendum: 05/01/17 at 1224 by HILARIO FAIRBANKS RT Amended: Links added.
--- NOTE | 2017-05-01 12:34 | NUR ---
ICU/RN: Pt received from [facility] c/o increased work of breathing on NRB @15l/min. Dr. Grissom at bedside, pt agreed to be placed on Bipap. Pt tolerating current bipap settings. ST 118 on bedside monitor. FC draining well to gravity. Denies discomfort at this time. Will cont to monitor pt.
--- NOTE | 2017-05-01 16:00 | NUR ---
ICU/RN: Hygienic, catheter, wound care and bed bath rendered. Noted with large amount of soft green stool. Perianal excoriation noted; applied Lotrimin ointment and Z-guard as ordered. Offered cranberry juice to pt with good po intake. Call light within reach. Will cont to monitor pt.
[2017-05-01] MEDS: Z GUARD REMEDY 2 OZ OINT TP PRN (16:30)
[2017-05-01] MEDS: LEVOFLOXACIN 500 MG /D5W 100ML 500 MG in PREMIX 1 EA IV SCH (16:30)
--- NOTE | 2017-05-01 19:30 | NUR ---
MATERIALS INTERN: RECEIVED PT A/O X 3. ON BIPAP AND TOLERATING SETTINGS ORDERED. 02 SAT ABOVE 96%. ST ON P[employer]OT [employer]PERVIS[employer] WT HR IN THE 120s. AFEBRILE. BP WNL. ON HIGH SALINAS'S. F/C PATENT AND INTACT DRAINING YELLOW URINE. HOB ON HIGH SALINAS'S. SAFETY PRECAUTION NOTED. CALL LIGHT WITHIN EASY REACH.
[2017-05-01] MEDS: IPRATROPIUM NEB FS 0.5 MG/2.5 ML AMPUL.NEB NEB PRN (19:45)
[2017-05-01] MEDS: IV NS 0.9% 250 ML IV PRN (20:34)
[2017-05-01] MEDS: ENOXAPARIN SODIUM 40 MG/0.4 ML DISP.SYRIN SQ SCH (20:38)
[2017-05-01] MEDS: MONTELUKAST SODIUM (10MG) 10 MG TABLET PO SCH (21:14)
[2017-05-01] MEDS: MIRTAZAPINE 15 MG TABLET PO SCH (21:14)
[2017-05-02] VITALS (30 sets, daily range): BP systolic 84–136; BP diastolic 41–83
[2017-05-02] MEDS: RACEPINEPHRINE HCL 2.25% NEB 0.5 ML VIAL.NEB IH SCH ×4 (02:00→19:54)
[2017-05-02] MEDS: IPRATROPIUM NEB FS 0.5 MG/2.5 ML AMPUL.NEB NEB PRN ×2 (02:00→19:54)
[2017-05-02 05:06] LABS: CALCIUM, SERUM 9.1 mg/dL (8.5-10.1); CREATININE 0.5 mg/dL (0.6-1.3); POTASSIUM 3.9 mmol/L (3.5-5.1)
--- NOTE | 2017-05-02 06:15 | NUR ---
[facility] SECURITY: BED BATH GIVEN TOLERATED FAIRLY. NOTED WT 1 EPISODED OF LARGE AMT. OF DARK BROWN LOOSE STOOLS. GOOD SKIN CARE RENDERED.
[2017-05-02] MEDS: IPRATROPIUM NEB FS 0.5 MG/2.5 ML AMPUL.NEB NEB SCH ×3 (07:45→23:30)
[2017-05-02] MEDS: ACETYLCYSTEINE 20% SOLN 800 MG/4 ML VIAL NEB SCH ×3 (07:46→23:30)
[2017-05-02] MEDS: predniSONE 20 MG TABLET PO SCH (08:14)
[2017-05-02] MEDS: LACTOBACILLUS RHAMNOSUS GG 1 EACH CAP.SPRINK PO SCH ×2 (08:14→16:28)
[2017-05-02] MEDS: LORATADINE 10 MG TABLET PO SCH (08:14)
[2017-05-02] MEDS: SERTRALINE HCL 50 MG TABLET PO SCH (08:14)
[2017-05-02] MEDS: Z GUARD REMEDY 4 OZ OINT TP SCH (08:15)
[2017-05-02] MEDS: FAMOTIDINE/PF INJ 20 MG/2 ML VIAL IV SCH ×2 (08:15→21:06)
[2017-05-02] MEDS: CLOTRIMAZOLE 1% 15 GM TUBE TP SCH ×2 (08:15→16:29)
[2017-05-02] MEDS: VANCOMYCIN 1 GM in IV D5W 250 ML IV SCH ×2 (08:23→21:06)
[2017-05-02] MEDS: MEROPENEM 500 MG in IV NS 0.9% 50 ML IV SCH (08:23)
--- NOTE | 2017-05-02 08:57 | NUR ---
Patient able to take pills without distress. No signs of aspirations. Bipap mask replaced immediately. Breakfast offered but patient still short of breath.
--- NOTE | 2017-05-02 11:30 | NUR ---
PT PLACED OFF BIPAP ONTO NRB MASK. PETER WELL AT THIS TIME. ZERO DISTRESS NOTED. RN AWARE
[2017-05-02] MEDS: LEVOFLOXACIN 500 MG /D5W 100ML 500 MG in PREMIX 1 EA IV SCH (15:41)
[2017-05-02] MEDS: MEROPENEM 1 G in IV NS 0.9% 100 ML IV SCH (16:31)
--- NOTE | 2017-05-02 18:28 | NUR ---
Patient remain on NRB mask 15L, sat range 95-98%. Attempted earlier to titrate oxygen, patient became short of breath with face mask @ 10L. Remain mobile in bed, independent with turning. discourage to turn to her left side as ordered by pulmonary.
--- NOTE | 2017-05-02 19:40 | NUR ---
RN INITIAL NOTES RECEIVED PT AWAKE ON BED, A/OX4. ON 15L NON-REBREATHER MASK, SATURATING WELL, APPEARS TO BE TACHYPNEIC BUT DOES NOT SHOW ANY OTHER S/S OF RESP DISTRESS. PT DENIES ANY PAIN. CURRENTLY SINUS TACH ON THE MONITOR, HR 110'S. PATIÑO CATH NOTED. RIGHT FOREARM 20G IS FLUSHED AND PATENT, NO S/S OF INFILTRATION/INFECTION, DRESSING CDI. BED LOW AND LOCKED, SIDERAILS UP, CALL LIGHT WITHIN REACH. WILL MONITOR
[2017-05-02] MEDS: MIRTAZAPINE 15 MG TABLET PO SCH (21:05)
[2017-05-02] MEDS: MONTELUKAST SODIUM (10MG) 10 MG TABLET PO SCH (21:05)
[2017-05-02] MEDS: ENOXAPARIN SODIUM 40 MG/0.4 ML DISP.SYRIN SQ SCH (21:07)
[2017-05-03] VITALS (27 sets, daily range): BP systolic 102–185; BP diastolic 48–83
[2017-05-03] MEDS: MEROPENEM 1 G in IV NS 0.9% 100 ML IV SCH ×3 (00:12→17:56)
[2017-05-03] MEDS: RACEPINEPHRINE HCL 2.25% NEB 0.5 ML VIAL.NEB IH SCH ×3 (01:30→20:06)
[2017-05-03 05:02] LABS: BASOPHILS # (AUTO) 0.1 /CMM (0.0-0.2); BASOPHILS % (AUTO) 0.4 % (0.0-2.0); EOSINOPHILS # (AUTO) 0.5 /CMM (0.0-0.7); EOSINOPHILS % (AUTO) 2.5 % (0.0-6.0); HEMATOCRIT 33 % (33-45); HEMOGLOBIN 10.6 g/dL (11.5-14.8); LYMPHOCYTES # (AUTO) 1.5 /CMM (0.8-4.8); LYMPHOCYTES % (AUTO) 8.2 % (20.0-44.0); MEAN CORPUSCULAR HEMOGLOBIN 29 PG (26.0-33.0); MEAN CORPUSCULAR HGB CONC 33 g/dl (31.0-36.0); MEAN CORPUSCULAR VOLUME 90 fL (82-100); MONOCYTES # (AUTO) 1.2 /CMM (0.1-1.30); MONOCYTES % (AUTO) 6.7 % (2.0-12.0); NEUTROPHILS # (AUTO) 15.1 /CMM (1.8-8.9); NEUTROPHILS % (AUTO) 82.2 % (43.0-81.0); PLATELET COUNT (AUTO) 285 /CMM (150-450); RDW COEFFICIENT OF VARIATION 13.4 (11.5-15.0); RED BLOOD CELL COUNT(AUTO) 3.62 MIL/uL (4.0-5.2); WHITE BLOOD COUNT (AUTO) 18.4 K/uL (4.3-11.0)
[2017-05-03 05:18] LABS: CHLORIDE 102 mmol/L (98-107); CREATININE 0.5 mg/dL (0.6-1.3); GLUCOSE 104 mg/dL (74-106); POTASSIUM 3.7 mmol/L (3.5-5.1); SODIUM SERUM 149 mmol/L (136-145); UREA NITROGEN, BLOOD 17 mg/dL (7-18)
[2017-05-03 05:41] LABS: CARBON DIOXIDE 53 mmol/L (21-32)
[2017-05-03] MEDS: IV NS 0.9% 250 ML IV PRN (06:01)
--- NOTE | 2017-05-03 06:30 | NUR ---
RN CLOSING NOTES PT REMAINS ON 15L NON-REBREATHER MASK, SATURATING @ 100%, NO S/S OF RESP DISTRESS. ALL OTHER DUE MEDS GIVEN, AM CARE PROVIDED. WILL ENDORSE BETY TO AM RN
[2017-05-03] MEDS: ACETYLCYSTEINE 20% SOLN 800 MG/4 ML VIAL NEB SCH ×3 (07:31→23:30)
[2017-05-03] MEDS: IPRATROPIUM NEB FS 0.5 MG/2.5 ML AMPUL.NEB NEB SCH ×3 (07:31→23:30)
--- NOTE | 2017-05-03 07:31 | NUR ---
INITIAL CONSTRUCTION EQUIPMENT TECHNICIAN NOTE RCVD PT AWAKE AND ALERT, SHOWING NO S/O DISTRESS OR VERBALIZING ANY C/O PAIN. ST ON TELE. TOLERATING NRB MASK BREATHING SHALLOW AND FAST OBSERVED. PATIÑO DRAINING CLOUDY, YELLOW URINE. PT HAS LOOSE STOOLS. RIGHT FA #20 C/D/I/PATENT. NO S/O INFILTRATION/PHLEBITIS OBSERVED IVF INFUSING TKO. WILL CONTINUE TO MONITOR PT FOR SAFETY AND COMFORT. CALL LIGHT WITHIN REACH. BED IN LOW AND LOCKED POSITION.
[2017-05-03] MEDS ORDERED: BOOST PLUS FOOD-VANILLA 237 ML BOX PO SCH (08:00)
[2017-05-03] MEDS: SERTRALINE HCL 50 MG TABLET PO SCH (08:21)
[2017-05-03] MEDS: predniSONE 20 MG TABLET PO SCH (08:21)
[2017-05-03] MEDS: FAMOTIDINE/PF INJ 20 MG/2 ML VIAL IV SCH ×2 (08:21→21:07)
[2017-05-03] MEDS: LACTOBACILLUS RHAMNOSUS GG 1 EACH CAP.SPRINK PO SCH ×2 (08:21→16:29)
[2017-05-03] MEDS: LORATADINE 10 MG TABLET PO SCH (08:21)
[2017-05-03] MEDS: Z GUARD REMEDY 4 OZ OINT TP SCH (08:22)
[2017-05-03] MEDS: CLOTRIMAZOLE 1% 15 GM TUBE TP SCH ×2 (08:22→16:29)
[2017-05-03] MEDS: VANCOMYCIN 1 GM in IV D5W 250 ML IV SCH ×2 (09:12→21:07)
[2017-05-03 10:08] LABS: ABG BASE EXCESS 21.4 mmol/L; ABG OXYGEN SATURATION 98.5 % (92.0-98.5); ABG PCO2 103.1 mmHg (35.0-45.0); ABG PH 7.322 (7.350-7.450); ABG PO2 208.5 mmHg (75.0-100.0); AaDO2 401.4 mmHg; COHb 0.3 % (0.5-1.5); MetHb 0.7 % (0.0-1.5); O2Hb 97.5 % (94.0-97.0); SITE, ABG Left Radial
--- NOTE | 2017-05-03 10:41 | NUR ---
CHAIRLIFT OPERATOR NOTE PT CALLED RN FEELING SOB, RT CALLED IN BREATHING TX IN PROGRESS. WILL CONTINUE TO MONITOR.
--- NOTE | 2017-05-03 11:02 | NUR ---
ASSISTANT FEDERAL PUBLIC DEFENDER NOTE PT HAVING DIFFICULTY BREATHING, VERY LABORED, SHALLOW AND FAST, RT CALLED. PT PLACED BACK ON BIPAP. ONCE ON BIPAP PT OBSERVED TO BE MORE COMFORTABLE WORK OF BREATHING DECREASED. WILL CONTINUE TO MONITOR.
[2017-05-03] MEDS ORDERED: LOPERAMIDE HCL (2 MG CAP) 2 MG CAPSULE PO ONE (13:00)
--- NOTE | 2017-05-03 13:11 | NUR ---
INSOLE TACK PULLER HAND NOTE BIPAP OFF, PT BACK ON NRB MASK SOB IMPROVED, PT TOLERATING NRB MASK WHILE HAVING LUNCH. WILL CONTINUE TO MONITOR.
--- NOTE | 2017-05-03 14:00 | NUR ---
DISABILITY INSURANCE HEARING OFFICER NOTE PT BACK ON BIPAP WILL CONTINUE TO MONITOR.
[2017-05-03] MEDS: LEVOFLOXACIN 500 MG /D5W 100ML 500 MG in PREMIX 1 EA IV SCH (16:29)
[2017-05-03] MEDS: Z GUARD REMEDY 2 OZ OINT TP PRN (16:29)
--- NOTE | 2017-05-03 18:29 | NUR ---
WEB MERCHANDISER NOTE PT REMAINS STABLE, OFF BIPAP AT THIS TIME, ST ON TELE. PATIÑO DRAINING YELLOW URINE. IV SITE CHANGED TO SAME ARM, SAME GAUGE. C/D/I/PATENT. NO S/O INFILTRATION/PHLEBITIS OBSERVED IVF INFUSING TKO. WILL CONTINUE TO MONITOR PT FOR SAFETY AND COMFORT. CALL LIGHT WITHIN REACH. BED IN LOW AND LOCKED POSITION. PT'S CARE WILL BE ENDORSED TO MANAGER PROVIDER RELATIONS RN FOR CONTINUITY OF CARE.
--- NOTE | 2017-05-03 19:30 | NUR ---
RN INITIAL NOTES RECEIVED PT AWAKE ON BED, A/OX4. ON 15L NON-REBREATHER MASK, SATURATING WELL. PT DENIES ANY PAIN. CURRENTLY SINUS TACH ON THE MONITOR, HR 110'S. PATIÑO CATH NOTED. RIGHT FOREARM 20G IS FLUSHED AND PATENT, NO S/S OF INFILTRATION/INFECTION, DRESSING CDI. BED LOW AND LOCKED, SIDERAILS UP, CALL LIGHT WITHIN REACH. WILL MONITOR
[2017-05-03] MEDS: MONTELUKAST SODIUM (10MG) 10 MG TABLET PO SCH (21:07)
[2017-05-03] MEDS: MIRTAZAPINE 15 MG TABLET PO SCH (21:07)
[2017-05-03] MEDS: ENOXAPARIN SODIUM 40 MG/0.4 ML DISP.SYRIN SQ SCH (21:08)
[2017-05-04] VITALS (27 sets, daily range): BP systolic 104–137; BP diastolic 61–80
[2017-05-04] MEDS: MEROPENEM 1 G in IV NS 0.9% 100 ML IV SCH ×3 (00:09→17:19)
[2017-05-04] MEDS: RACEPINEPHRINE HCL 2.25% NEB 0.5 ML VIAL.NEB IH SCH ×4 (01:30→16:50)
[2017-05-04 05:17] LABS: CALCIUM, SERUM 8.9 mg/dL (8.5-10.1); CHLORIDE 103 mmol/L (98-107); CREATININE 0.4 mg/dL (0.6-1.3); GLUCOSE 98 mg/dL (74-106); SODIUM SERUM 148 mmol/L (136-145); UREA NITROGEN, BLOOD 17 mg/dL (7-18)
[2017-05-04] MEDS: IV NS 0.9% 250 ML IV PRN (05:41)
[2017-05-04 06:00] LABS: CARBON DIOXIDE 53 mmol/L (21-32)
--- NOTE | 2017-05-04 06:30 | NUR ---
RN CLOSING NOTES PT REMAINS STABLE OF THE MOMENT. ALL DUE MEDS GIVEN, AM CARE CARE PROVIDED. WILL ENDORSE BETY TO AM RN
--- NOTE | 2017-05-04 07:24 | NUR ---
INITIAL HUMAN RESOURCES OPERATIONS COORDINATOR NOTE RCVD PT SLEEPING IN BED, AROUSED TO LIGHT TOUCH, SHOWING NO S/O DISTRESS OR C/O PAIN AT THIS TIME. ST ON TELE. TOLERATING NRB MASK, PER REPORT NO BIPAP USE DURING NIGHT. PATIÑO DRAINING YELLOW URINE. RIGHT FA #20 C/D/I/PATENT. NO S/O INFILTRATION/PHLEBITIS OBSERVED. IVF INFUSING TKO. WILL CONTINUE TO MONITOR PT FOR SAFETY AND COMFORT. CALL LIGHT WITHIN REACH. BED IN LOW AND LOCKED POSITION.
[2017-05-04] MEDS: ACETYLCYSTEINE 20% SOLN 800 MG/4 ML VIAL NEB SCH ×3 (07:55→23:20)
[2017-05-04] MEDS: IPRATROPIUM NEB FS 0.5 MG/2.5 ML AMPUL.NEB NEB SCH ×3 (07:55→23:20)
[2017-05-04] MEDS: predniSONE 20 MG TABLET PO SCH (08:03)
[2017-05-04] MEDS: LACTOBACILLUS RHAMNOSUS GG 1 EACH CAP.SPRINK PO SCH ×2 (08:03→17:18)
[2017-05-04] MEDS: FAMOTIDINE/PF INJ 20 MG/2 ML VIAL IV SCH ×2 (08:03→21:22)
[2017-05-04] MEDS: SERTRALINE HCL 50 MG TABLET PO SCH (08:03)
[2017-05-04] MEDS: CLOTRIMAZOLE 1% 15 GM TUBE TP SCH ×2 (08:05→17:19)
[2017-05-04] MEDS: Z GUARD REMEDY 4 OZ OINT TP SCH (08:06)
--- NOTE | 2017-05-04 08:15 | NUR ---
COLORS CUSTODIAN NOTE PT BECAME SOB, ACCESSORY MUSCLE USE OBSERVED, PT PLACED ON BIPAP. WILL CONTINUE TO MONITOR.
[2017-05-04] MEDS: VANCOMYCIN 1 GM in IV D5W 250 ML IV SCH ×2 (08:52→21:24)
--- NOTE | 2017-05-04 09:01 | NUR ---
SIZE CUTTER NOTE PT PLACED ON SIMPLE MASK PER DR. RIVERA'S RECOMMENDATION. PT TOLERATING WELL. WILL CONTINUE TO MONITOR.
[2017-05-04] MEDS: BOOST PLUS FOOD-VANILLA 237 ML BOX PO SCH ×3 (09:39→17:17)
[2017-05-04 10:27] LABS: ABG BASE EXCESS 15.1 mmol/L; ABG OXYGEN SATURATION 93.2 % (92.0-98.5); ABG PCO2 84.2 mmHg (35.0-45.0); ABG PH 7.338 (7.350-7.450); ABG PO2 68.6 mmHg (75.0-100.0); AaDO2 266.6 mmHg; COHb 0.2 % (0.5-1.5); MetHb 0.6 % (0.0-1.5); O2Hb 92.5 % (94.0-97.0); SITE, ABG Left Radial; VENT MODE, BG 10L/MIN MASK
--- NOTE | 2017-05-04 13:37 | NUR ---
INSIDE SALES AGENT NOTE PT ON/OFF BIPAP, CURRENTLY ON NRB MASK TOLERATING WELL.
[2017-05-04] MEDS: LEVOFLOXACIN 500 MG /D5W 100ML 500 MG in PREMIX 1 EA IV SCH (15:43)
--- NOTE | 2017-05-04 18:23 | NUR ---
PERSONAL CARE HOME ADMINISTRATOR NOTE PT REMAINS STABLE, ON NRB MASK AT THIS TIME TOLERATING WELL. PATIÑO DRAINING CLOUDY, YELLOW URINE. IV SITE C/D/I/PATENT. NO S/O INFILTRATION/PHLEBITIS OBSERVED. IVF INFUSING TKO. WILL CONTINUE TO MONITOR PT FOR SAFETY AND COMFORT. CALL LIGHT WITHIN REACH. BED IN LOW AND LOCKED POSITION. PT'S CARE WILL BE ENDORSED TO HEEL LIFT GOUGER RN FOR CONTINUITY OF CARE.
--- NOTE | 2017-05-04 19:29 | NUR ---
RN INITIAL NOTES RECEIVED PT AWAKE ON BED, A/OX4. ON BIPAP RATE10, 60%FIO2, 20/8, TACHYPNEIC BUT SATURATING WELL. PT DENIES ANY PAIN. CURRENTLY SINUS TACH ON THE MONITOR, HR 110'S. PATIÑO CATH NOTED. RIGHT FOREARM 20G IS FLUSHED AND PATENT, NO S/S OF INFILTRATION/INFECTION, DRESSING CDI. BED LOW AND LOCKED, SIDERAILS UP, CALL LIGHT WITHIN REACH. WILL MONITOR
[2017-05-04] MEDS: RACEPINEPHRINE HCL 2.25% NEB 0.5 ML VIAL.NEB IH PRN (19:51)
--- NOTE | 2017-05-04 20:45 | NUR ---
PT PLACED BACK ON BIPAP @1850 DO TO SOB AND LOW O2 SAT. PT TOLERATING BIPAP SETTINGS. PT SAID SHE FELLS A LOT BETTER. WILL CONTINUE TO MONITOR. Addendum: 05/04/17 at 2048 by JUNIOR HAWK RT Amended: Links added.
[2017-05-04] MEDS: ENOXAPARIN SODIUM 40 MG/0.4 ML DISP.SYRIN SQ SCH (21:22)
[2017-05-04] MEDS: MONTELUKAST SODIUM (10MG) 10 MG TABLET PO SCH (21:23)
[2017-05-04] MEDS: MIRTAZAPINE 15 MG TABLET PO SCH (21:23)
--- NOTE | 2017-05-04 21:43 | NUR ---
@2780 PT ASKED TO BE OFF BIPAP. PLACED ON NRB. WILL CONTINUE TO MONITOR.
[2017-05-05] VITALS (30 sets, daily range): BP systolic 109–131; BP diastolic 62–87
[2017-05-05] MEDS: RACEPINEPHRINE HCL 2.25% NEB 0.5 ML VIAL.NEB IH SCH ×5 (01:16→19:27)
[2017-05-05] MEDS: MEROPENEM 1 G in IV NS 0.9% 100 ML IV SCH ×3 (01:25→17:46)
[2017-05-05] MEDS: IV NS 0.9% 250 ML IV PRN (05:26)
--- NOTE | 2017-05-05 06:01 | NUR ---
PT TOLERATED NRB THE WHOLE NIGHT NO SOB. REFUSED 2330 AND 0130 BREATHING TX PT WANTED TO SLEEP. RN WAS AWARE.
--- NOTE | 2017-05-05 06:30 | NUR ---
RN CLOSING NOTES PT REMAINS STABLE OF THE MOMENT. ALL DUE MEDS GIVEN, AM CARE CARE PROVIDED. WILL ENDORSE BETY TO AM RN
[2017-05-05] MEDS: ACETYLCYSTEINE 20% SOLN 800 MG/4 ML VIAL NEB SCH ×3 (07:35→23:17)
[2017-05-05] MEDS: IPRATROPIUM NEB FS 0.5 MG/2.5 ML AMPUL.NEB NEB SCH ×3 (07:35→23:17)
--- NOTE | 2017-05-05 07:45 | NUR ---
ICU/RN - Initial Notes Received pt alert and oriented x4. In no acute distress. On O2 @ 15lpm via non-rebreather mask. On tele reading ST 108. Foster catheter intact draining urine to gravity. IV patent and intact with NS TKO infusing well. Safety and comfort measures in place. Will continue to monitor pt closely.
[2017-05-05 07:53] LABS: CALCIUM, SERUM 8.9 mg/dL (8.5-10.1); CREATININE 0.5 mg/dL (0.6-1.3); POTASSIUM 4.1 mmol/L (3.5-5.1)
[2017-05-05] MEDS: predniSONE 20 MG TABLET PO SCH (08:29)
[2017-05-05] MEDS: SERTRALINE HCL 50 MG TABLET PO SCH (08:29)
[2017-05-05] MEDS: Z GUARD REMEDY 2 OZ OINT TP PRN (08:29)
[2017-05-05] MEDS: LACTOBACILLUS RHAMNOSUS GG 1 EACH CAP.SPRINK PO SCH ×2 (08:29→16:30)
[2017-05-05] MEDS: FAMOTIDINE/PF INJ 20 MG/2 ML VIAL IV SCH ×2 (09:35→20:48)
[2017-05-05] MEDS: BOOST PLUS FOOD-VANILLA 237 ML BOX PO SCH ×3 (09:35→17:46)
[2017-05-05] MEDS: CLOTRIMAZOLE 1% 15 GM TUBE TP SCH ×2 (09:36→16:35)
[2017-05-05] MEDS: Z GUARD REMEDY 4 OZ OINT TP SCH (09:36)
--- NOTE | 2017-05-05 10:00 | NUR ---
ICU/RN - Notes Per Dr Vasquez, titrated down O2 to 10lpm via simple mask to keep O2 sat 88-90%. RT Shalom notified, pt placed on simple mask.
[2017-05-05] MEDS: VANCOMYCIN 0.75 GM in IV D5W 250 ML IV SCH ×2 (10:46→21:41)
[2017-05-05] MEDS: IPRATROPIUM NEB FS 0.5 MG/2.5 ML AMPUL.NEB NEB PRN (11:38)
[2017-05-05] MEDS: RACEPINEPHRINE HCL 2.25% NEB 0.5 ML VIAL.NEB IH PRN (11:44)
--- NOTE | 2017-05-05 11:45 | NUR ---
ICU/RN - Notes Pt noted with labored breathing and complains of shortness of breath. RT Shalom notified for respiratory treatment and possible need for Bipap.
--- NOTE | 2017-05-05 11:48 | NUR ---
RT PT PLACED BACK ON BIPAP DUE TO SOB AND INCREASED WOB. PT PLACED ON NOTED SETTINGS. PT BREATHING APPEARS TO BE IMPROVING AT THIS TIME, WILL CONTINUE TO MONITOR. Addendum: 05/05/17 at 1151 by VIN MADSEN RT Amended: Links added.
--- NOTE | 2017-05-05 15:05 | NUR ---
ICU/RN - Notes Pt taken off Bipap and placed on O2 @ 10lpm via simple mask by RT Shalom. Will continue to monitor for any s/s of respiratory distress.
[2017-05-05] MEDS: LEVOFLOXACIN 500 MG /D5W 100ML 500 MG in PREMIX 1 EA IV SCH (16:30)
--- NOTE | 2017-05-05 16:30 | NUR ---
ICU/RN - Notes Pt strongly refusing bed bath at this time, stating "It's going to make my breathing worse if I have that right now."
--- NOTE | 2017-05-05 19:00 | NUR ---
ICU/RN - Notes Pt requests to be placed on Bipap, RT notified. Pt placed on Bipap per MD orders.
--- NOTE | 2017-05-05 19:30 | NUR ---
INSURANCE COMPLIANCE ANALYST: RECEIVED PT A/O X3. ON BIPAP AND TOLERATING SETTINGS ORDERED. 02 SAT ABOVE 96%. ST ON THE BULB GROWER. AFEBRILE. BP WNL. HOB ON SEMI-SALINAS'S. F/C PATENT AND INTACT DRAINING YELLOW URINE. SAFETY PRECAUTION NOTED. CALL LIGHT WITHIN EASY REACH. WILL CONTINUE TO MONITOR.
--- NOTE | 2017-05-05 20:28 | NUR ---
PT ON BIPAP TOLERATING SETTINGS. PT IS AWAKE AND ALERT. EXPLAINED TO HER SHE NEEDS TO STAY ON BIPAP THE WHOLE NIGHT PER DR RIVERA. WILL CONTINUE TO MONITOR. Addendum: 05/05/17 at 2028 by JUNIOR HAWK RT Amended: Links added.
[2017-05-05] MEDS: ENOXAPARIN SODIUM 40 MG/0.4 ML DISP.SYRIN SQ SCH (20:50)
[2017-05-05] MEDS: MIRTAZAPINE 15 MG TABLET PO SCH (21:42)
[2017-05-05] MEDS: MONTELUKAST SODIUM (10MG) 10 MG TABLET PO SCH (21:42)
--- NOTE | 2017-05-05 23:30 | NUR ---
CANCER PROGRAM DIRECTOR: TOLERATING BIPAP SETTINGS WT 02 SAT ABOVE 96%. NOTED WT MODERATE AMT. OF SOFT TO LOOSE BROWN STOOLS. BED BATH GIVEN WT GOOD ILANA CARE. APPLIED LOTRIMIN AND BARRIER CREAM ON PERINEAL EXCORIATION. ASSISTED IN REPOSITIONING. WILL CONTINUE TO MONITOR.
[2017-05-06] VITALS (33 sets, daily range): BP systolic 100–136; BP diastolic 41–100
[2017-05-06] MEDS: MEROPENEM 1 G in IV NS 0.9% 100 ML IV SCH ×3 (00:19→17:03)
[2017-05-06] MEDS: RACEPINEPHRINE HCL 2.25% NEB 0.5 ML VIAL.NEB IH SCH ×4 (01:14→20:23)
[2017-05-06] MEDS: IV NS 0.9% 250 ML IV PRN (01:51)
--- NOTE | 2017-05-06 03:30 | NUR ---
ELECTRICAL PLUMBING SUPERVISOR: TOLERATING BIPAP SETTINGS. NO RESPIRATORY DISTRESS. VS WITHIN HER BASELINE.
[2017-05-06 04:58] LABS: CALCIUM, SERUM 8.5 mg/dL (8.5-10.1); CREATININE 0.5 mg/dL (0.6-1.3)
--- NOTE | 2017-05-06 06:30 | NUR ---
IRON CARRIER: NO SIGNIFICANT BETY DURING THE SHIFT. REMAINED A/O X 3. TOLERATING BIPAP SETTINGS ORDERED WT NO ACUTE DISTRESS. NO C/O PAIN OR EVIDENCE OF DISCOMFORT. ALL NEEDS MET. SAFETY PRECAUTION NOTED.
--- NOTE | 2017-05-06 07:45 | NUR ---
ICU/RN - Initial Notes Received pt alert and oriented x4. In no acute distress. On Bipap at this time, tolerating well. On tele reading ST 105. Foster catheter intact draining urine to gravity. IV patent and intact with NS TKO infusing well. Safety and comfort measures in place. Will continue to monitor pt closely.
[2017-05-06] MEDS: ACETYLCYSTEINE 20% SOLN 800 MG/4 ML VIAL NEB SCH ×3 (08:25→23:59)
[2017-05-06] MEDS: IPRATROPIUM NEB FS 0.5 MG/2.5 ML AMPUL.NEB NEB SCH ×3 (08:25→23:59)
[2017-05-06] MEDS: predniSONE 20 MG TABLET PO SCH (08:26)
[2017-05-06] MEDS: CLOTRIMAZOLE 1% 15 GM TUBE TP SCH ×2 (08:26→17:03)
[2017-05-06] MEDS: SERTRALINE HCL 50 MG TABLET PO SCH (08:26)
[2017-05-06] MEDS: FAMOTIDINE/PF INJ 20 MG/2 ML VIAL IV SCH ×2 (08:26→21:31)
[2017-05-06] MEDS: ACIDOPHILUS/BULGARICUS 1 EACH TAB.CHEW PO SCH ×3 (08:26→17:01)
[2017-05-06] MEDS: Z GUARD REMEDY 4 OZ OINT TP SCH (08:27)
--- NOTE | 2017-05-06 08:45 | NUR ---
ICU/RN - Notes Pt placed on simple mask @ 10lpm, eating breakfast. Will continue to monitor.
[2017-05-06] MEDS: BOOST PLUS FOOD-VANILLA 237 ML BOX PO SCH ×3 (09:05→17:03)
[2017-05-06] MEDS: VANCOMYCIN 0.75 GM in IV D5W 250 ML IV SCH ×2 (09:07→21:31)
--- NOTE | 2017-05-06 12:45 | NUR ---
ICU/RN - Notes Pt was placed intermittently for approximately 1 hour on Bipap, as pt manifested with deep labored breathing and states "It's hard to breathe." Back on simple mask @ 10lpm. Will continue to monitor.
--- NOTE | 2017-05-06 14:45 | NUR ---
ICU/RN - Notes Pt noted with labored deep breathing and complains of shortness of breath while on simple mask @ 10lpm. RT Vanush at bedside for breathing treatment. Dr Vasquez at bedside, with orders to place pt back on Bipap. Pt placed back on Bipap by RT.
[2017-05-06] MEDS ORDERED: TERBUTALINE SULFATE 1 MG/ML VIAL SQ PRN (15:00)
[2017-05-06] MEDS: LEVOFLOXACIN 500 MG /D5W 100ML 500 MG in PREMIX 1 EA IV SCH (15:06)
--- NOTE | 2017-05-06 19:30 | NUR ---
ASSISTANT PROFESSOR OF EDUCATION: RECEIVED PT. A/O X 4. JUST FINISHED DINNER AND WAS ON 10LPM 02 VIA SIMPLE MASK. INCREASED WORK OF BREATHING NOTED. ST ON WOOD ENGRAVER. PLACED ON BIPAP WT SETTINGS ORDERED. 02 SAT ABOVE 94%. HOB ON HIGH SALINAS'S. SAFETY PRECAUTION NOTED. WILL CONTINUE TO MONITOR.
[2017-05-06] MEDS: MIRTAZAPINE 15 MG TABLET PO SCH (21:31)
[2017-05-06] MEDS: MONTELUKAST SODIUM (10MG) 10 MG TABLET PO SCH (21:31)
[2017-05-06] MEDS: ENOXAPARIN SODIUM 40 MG/0.4 ML DISP.SYRIN SQ SCH (21:32)
--- NOTE | 2017-05-06 23:30 | NUR ---
SALES SERVICE EXECUTIVE: HAD LARGE AMT. OF LOOSE BROWN STOOLS. BED BATH GIVEN AND TOLERATED FAIRLY. [facility] ILANA CARE RENDERED.
[2017-05-07] VITALS (36 sets, daily range): BP systolic 102–147; BP diastolic 51–98
[2017-05-07] MEDS: MEROPENEM 1 G in IV NS 0.9% 100 ML IV SCH ×3 (01:38→16:10)
[2017-05-07] MEDS: IV NS 0.9% 250 ML IV PRN (01:45)
[2017-05-07] MEDS: RACEPINEPHRINE HCL 2.25% NEB 0.5 ML VIAL.NEB IH SCH ×4 (02:04→19:30)
--- NOTE | 2017-05-07 04:00 | NUR ---
RADIOLOGY DIRECTOR: EYES CLOSED, ABLE TO OPEN EYES WHEN TOUCHED. TOLERATING BIPAP SETTINGS ORDERED.
[2017-05-07 04:45] LABS: BASOPHILS # (AUTO) 0.1 /CMM (0.0-0.2); BASOPHILS % (AUTO) 0.4 % (0.0-2.0); EOSINOPHILS # (AUTO) 0.5 /CMM (0.0-0.7); HEMATOCRIT 33 % (33-45); HEMOGLOBIN 10.7 g/dL (11.5-14.8); LYMPHOCYTES # (AUTO) 1.9 /CMM (0.8-4.8); LYMPHOCYTES % (AUTO) 12.2 % (20.0-44.0); MEAN CORPUSCULAR HEMOGLOBIN 30 PG (26.0-33.0); MEAN CORPUSCULAR HGB CONC 33 g/dl (31.0-36.0); MEAN CORPUSCULAR VOLUME 91 fL (82-100); MONOCYTES % (AUTO) 6.7 % (2.0-12.0); NEUTROPHILS # (AUTO) 12.1 /CMM (1.8-8.9); NEUTROPHILS % (AUTO) 77.7 % (43.0-81.0); PLATELET COUNT (AUTO) 297 /CMM (150-450); RDW COEFFICIENT OF VARIATION 13.3 (11.5-15.0); WHITE BLOOD COUNT (AUTO) 15.6 K/uL (4.3-11.0)
[2017-05-07 05:04] LABS: CALCIUM, SERUM 9.1 mg/dL (8.5-10.1); CREATININE 0.6 mg/dL (0.6-1.3); POTASSIUM 3.7 mmol/L (3.5-5.1)
--- NOTE | 2017-05-07 06:20 | NUR ---
BROTHEL KEEPER: HAD ANOTHER LARGE AMT. OF SOFT TO LOOSE BROWN STOOLS. GOOD ILANA CARE RENDERED. APPLIED LOTRIMIN AND Z-GUARD ON PERINEAL EXCORIATION AND TOLERATED WELL. INCREASED WORK OF BREATHING NOTED DURING REPOSITIONING. PLACED ON BIPAP THROUGHOUT SHIFT AT 50% FI02 SINCE 329. 02 SAT ABOVE 96%. ALL NEEDS MET. SAFETY PRECAUTION NOTED AT ALL TIMES.
[2017-05-07] MEDS: IPRATROPIUM NEB FS 0.5 MG/2.5 ML AMPUL.NEB NEB SCH ×3 (07:38→23:50)
[2017-05-07] MEDS: ACETYLCYSTEINE 20% SOLN 800 MG/4 ML VIAL NEB SCH ×3 (07:38→23:50)
--- NOTE | 2017-05-07 08:04 | NUR ---
PATIENT SERVICE ASSOCIATE: pt.is A/Ox3, no c/o pain, no c/o for now, O2 sat. 98-100%, no SOB, on 50% FiO2 bipap, ST 100-120, SBP over 100, needs to stay on spine or R.site per request
[2017-05-07] MEDS: predniSONE 20 MG TABLET PO SCH (08:32)
[2017-05-07] MEDS: ACIDOPHILUS/BULGARICUS 1 EACH TAB.CHEW PO SCH ×3 (08:32→16:11)
[2017-05-07] MEDS: BOOST PLUS FOOD-VANILLA 237 ML BOX PO SCH ×3 (08:32→17:44)
[2017-05-07] MEDS: SERTRALINE HCL 50 MG TABLET PO SCH (08:32)
[2017-05-07] MEDS: FAMOTIDINE/PF INJ 20 MG/2 ML VIAL IV SCH ×2 (08:32→21:24)
--- NOTE | 2017-05-07 08:54 | NUR ---
FOOTBALL COACH: is in room, updated wit pt.current condition, VS, ST 100-120, I/O, meds, labs, O2sat., ABG (pH 7.44, pCO2 72, pO2 90, bicarb 47 on bipap)
[2017-05-07] MEDS: Z GUARD REMEDY 4 OZ OINT TP SCH (09:05)
[2017-05-07] MEDS: CLOTRIMAZOLE 1% 15 GM TUBE TP SCH ×2 (09:05→16:10)
[2017-05-07 09:09] LABS: ABG BASE EXCESS 20.3 mmol/L; ABG OXYGEN SATURATION 96.6 % (92.0-98.5); ABG PO2 90.4 mmHg (75.0-100.0); AaDO2 185.1 mmHg; COHb 0.3 % (0.5-1.5); MetHb 0.4 % (0.0-1.5); O2Hb 95.9 % (94.0-97.0); SITE, ABG Left Radial; VENT MODE, BG ST 20/8 50%
[2017-05-07] MEDS: VANCOMYCIN 0.75 GM in IV D5W 250 ML IV SCH ×2 (10:42→22:14)
--- NOTE | 2017-05-07 12:30 | NUR ---
COATING LINE WORKER: is in room, updated with pt.current condition, VS, ST, ABG, desaturation down to 86% within O2 n/c 5min/NRBM 15-20min episode, Bipap setting, plan: see ability to keep stable without Bipap attempts within 48hrs otherwise possible intubation in worse scenario, see new orders
--- NOTE | 2017-05-07 14:00 | NUR ---
RIPSAW OPERATOR: pt.was asking for lunch, agree for NBRM, O2sat. over 96-100%, ST 110-120, RR 25-30, placed on NRBM
--- NOTE | 2017-05-07 14:30 | NUR ---
DITCHING MACHINE OPERATING ENGINEER: meds, lunch were given, had BM/PM care, skin care given, O2 sat. 97-100% on NRBM, same ST 110-120, but pt.feels some labored breathing, RR 30-35, placed back on Bipap
[2017-05-07] MEDS: LEVOFLOXACIN 500 MG /D5W 100ML 500 MG in PREMIX 1 EA IV SCH (16:11)
--- NOTE | 2017-05-07 18:10 | NUR ---
HEALTH SUPPORT SPECIALIST: pt.is A/Ox3, no pain, no c/o, on Bipap FiO2 50%, O2 sat. over 96%, no SOB, got dinner 75%, was on NRBM for 15 min/tolerated well, ST 100-120, SBP over 100 below 150, urine out 850ml/12h, ongoing to stay on R or supine position
--- NOTE | 2017-05-07 19:30 | NUR ---
NUT GRADER: RECEIVED PT A/O X 3, ON BIPAP MACHINE AND TOLERATING SETTINGS ORDERED. 02 SAT ABOVE 96%, ST ON REPORTING PROCESS CONSULTANT WT HR LESS THAN 120. AFEBRILE. BP WNL. HOB ON HIGH SALINAS'S. IV SITES INTACT WT NO S/S OF INFILTRATION. F/C PATENT AND INTACT DRAINING CLEAR YELLOW URINE TO GRAVITY. SAFETY PRECAUTION NOTED. CALL LIGHT WITHIN EASY REACH.
[2017-05-07] MEDS: MONTELUKAST SODIUM (10MG) 10 MG TABLET PO SCH (21:24)
[2017-05-07] MEDS: MIRTAZAPINE 15 MG TABLET PO SCH (21:24)
[2017-05-07] MEDS: ENOXAPARIN SODIUM 40 MG/0.4 ML DISP.SYRIN SQ SCH (21:25)
--- NOTE | 2017-05-07 22:00 | NUR ---
DIE CAST SUPERVISOR: NOTED WT LARGE AMT. OF SOFT TO LOOSE BROWN STOOLS. BED BATH GIVEN. TOLERATED POORLY WHEN TURNED ON RIGHT SIDE AND ON HER BACK M/B HIGH RESP. RATE AND LABORED BREATHING DESPITE BEING PLACED ON BIPAP MACHINE. GOOD ILANA CARE RENDERED, APPLIED LOTRIMIN AND Z GUARD ON PERINEAL EXCORIATION.
[2017-05-08] VITALS (32 sets, daily range): BP systolic 92–154; BP diastolic 62–92
[2017-05-08] MEDS: MEROPENEM 1 G in IV NS 0.9% 100 ML IV SCH ×3 (01:15→16:17)
[2017-05-08] MEDS: IV NS 0.9% 250 ML IV PRN (01:20)
[2017-05-08] MEDS: RACEPINEPHRINE HCL 2.25% NEB 0.5 ML VIAL.NEB IH SCH ×4 (01:53→20:19)
--- NOTE | 2017-05-08 02:00 | NUR ---
LEAD AUDITOR: NO BETY. EYES CLOSED, ABLE TO OPEN EYES WHEN CALLED BY NAME OR TOUCHED. VS WITHIN HER BASELINE.
--- NOTE | 2017-05-08 04:00 | NUR ---
BALL RACKER: NOTED WT ANOTHER MODERATE AMT. OF SOFT TO LOOSE BOWEL MOVEMENT. GOOD ILANA CARE AND ORAL CARE RENDERED, TOLERATED FAIRLY.
[2017-05-08 04:57] LABS: CALCIUM, SERUM 8.8 mg/dL (8.5-10.1); CREATININE 0.5 mg/dL (0.6-1.3); POTASSIUM 3.5 mmol/L (3.5-5.1)
--- NOTE | 2017-05-08 06:15 | NUR ---
APPLICATION TESTER: REMAINED A/O X 3. TOLERATING BIPAP SETTINGS ORDERED WT 02 SAT 94% AND ABOVE. VENOUS C02 RESULT REMAINED AT 47. ALL NEEDS MET. SAFETY PRECAUTION NOTED AT ALL TIMES.
--- NOTE | 2017-05-08 07:29 | NUR ---
PANEL MACHINE OPERATOR: pt.is tolerated well for Bipap per report, O2 sat. WNL, no SOB, pt.is A/Ox3, no pain, no c/o, ST 100-115, SBP over 100, FiO2 50%
[2017-05-08] MEDS: ACETYLCYSTEINE 20% SOLN 800 MG/4 ML VIAL NEB SCH ×3 (07:53→23:45)
[2017-05-08] MEDS: IPRATROPIUM NEB FS 0.5 MG/2.5 ML AMPUL.NEB NEB SCH ×3 (07:53→23:45)
[2017-05-08] MEDS: predniSONE 20 MG TABLET PO SCH (08:15)
[2017-05-08] MEDS: SERTRALINE HCL 50 MG TABLET PO SCH (08:15)
[2017-05-08] MEDS: CLOTRIMAZOLE 1% 15 GM TUBE TP SCH ×2 (08:15→16:19)
[2017-05-08] MEDS: BOOST PLUS FOOD-VANILLA 237 ML BOX PO SCH ×3 (08:15→18:00)
[2017-05-08] MEDS: ACIDOPHILUS/BULGARICUS 1 EACH TAB.CHEW PO SCH ×3 (08:15→16:17)
[2017-05-08] MEDS: FAMOTIDINE/PF INJ 20 MG/2 ML VIAL IV SCH ×2 (08:15→21:24)
[2017-05-08] MEDS: Z GUARD REMEDY 4 OZ OINT TP SCH (08:16)
--- NOTE | 2017-05-08 08:28 | NUR ---
TRACK SERVICE PERSON: updated RT with pt.condition, POC
--- NOTE | 2017-05-08 08:50 | NUR ---
SCHOOL CROSSING GUARD: pt. got resp.TX, RT placed pt.on 100%O2 NRBM, getting breakfast, meds, continue monitoring
--- NOTE | 2017-05-08 10:00 | NUR ---
LIMEROCK TOWER LOADER: is in room, updated with pt.current condition, sedation vacation reaction (done 05/07), VS, ABG from 05/07, metabolic acidosis, I/O, GTF, wounds, labs, meds, CXR, ordered: ABG now, wants to see pt.sedation vacation, Diprivan gtt stopped
--- NOTE | 2017-05-08 10:05 | NUR ---
OUTPATIENT CODING SPECIALIST: previous note is error
[2017-05-08] MEDS: VANCOMYCIN 0.75 GM in IV D5W 250 ML IV SCH ×2 (10:25→22:20)
--- NOTE | 2017-05-08 10:40 | NUR ---
POLITICAL SCIENCE RESEARCH ASSISTANT: pt.is 2 hrs on NRBM 100% O2 flow, said: feel much better, O2 sat. 96-100%, ST 100-12, RR 24-30, is in room, updated with above, VS, I/O, meds, history
--- NOTE | 2017-05-08 11:15 | NUR ---
CUSTODIAL MANAGER: is in room, updated re pr.current status, pt.feels better compared from 05/07 and tolerated well on NRBM, VS, ST, I/O, meds, labs, skin problem, ABG, see new orders
--- NOTE | 2017-05-08 13:30 | NUR ---
SNOW RANGER: O2 sat. 98-100% on 100% O2 flow NRBM, RR 22-30, pt.said: feel good on NRBM, got 75% lunch, ST 100-115, no any pain, no c/o
--- NOTE | 2017-05-08 14:45 | NUR ---
KNOT TYING OPERATOR: pt.is getting resp.Tx, c/o hard breathing now with little chest laboring activity, RR 28-33, ST 110-120, RT is in room, replaced on Bipap with continue resp.Tx
[2017-05-08] MEDS: LEVOFLOXACIN 500 MG /D5W 100ML 500 MG in PREMIX 1 EA IV SCH (15:31)
--- NOTE | 2017-05-08 17:22 | NUR ---
TYPING SECRETARY: pt.is rest, no c/o, no any pain, ST 100-115, O2 sat. 100%, no SOB, RT,Shalom placed pt.on NRBM, continue monitoring
--- NOTE | 2017-05-08 18:14 | NUR ---
WEB MARKETING COORDINATOR: pt.c/o hard to breathing, RR 20-32, O2 down to 89-93%, same ST 100-115, Bipap support with same setting resumed, took 50% of dinner, nose bridge skin care is done, intact
--- NOTE | 2017-05-08 20:47 | NUR ---
CHEMICAL MIXER. INITIAL ASSESSMENT. RECEIVED THE PT REST ON THE BED, AWAKE, ALERT, FOLLOW COMMANDS. MICROBIOLOGY TECHNOLOGIST SHOWING NSR, IV RT AC 20G. SALINE LOCK. HOB ELEVATED. BIPAP ON SETTINGS 20/8, FIO2 50%. RATE 10. HOB ELEVATED. FC PATENT. TURN AND REPOSITION Q2H. WILL CONTINUE TO MONITOR VITALS.
[2017-05-08] MEDS: MONTELUKAST SODIUM (10MG) 10 MG TABLET PO SCH (21:24)
[2017-05-08] MEDS: MIRTAZAPINE 15 MG TABLET PO SCH (21:25)
[2017-05-08] MEDS: ENOXAPARIN SODIUM 40 MG/0.4 ML DISP.SYRIN SQ SCH (21:26)
[2017-05-09] VITALS (31 sets, daily range): BP systolic 100–136; BP diastolic 45–79
[2017-05-09] MEDS: RACEPINEPHRINE HCL 2.25% NEB 0.5 ML VIAL.NEB IH SCH ×4 (01:21→19:59)
[2017-05-09] MEDS: MEROPENEM 1 G in IV NS 0.9% 100 ML IV SCH ×3 (01:42→17:32)
[2017-05-09] MEDS: IV NS 0.9% 250 ML IV PRN (02:54)
--- NOTE | 2017-05-09 03:26 | NUR ---
ACCOUNTING COORDINATOR. AM CARE, ORAL CARE, BED BATH GIVEN. LINEN CHANGED, REMAINING SAME BIPAP SETTING TOLERATED WELL. SAT 99%. HOB ELEVATED. IV RT AC 20G. TKO @5ML/H. FC PATENT. URINE DRAINING. HOB ELEVATED. TURN AND REPOSITION Q2H. AFEBRILE. WILL CONTINUE TO MONITOR VITALS.
[2017-05-09 04:50] LABS: CALCIUM, SERUM 8.9 mg/dL (8.5-10.1); CREATININE 0.5 mg/dL (0.6-1.3); POTASSIUM 3.5 mmol/L (3.5-5.1)
[2017-05-09] MEDS: IPRATROPIUM NEB FS 0.5 MG/2.5 ML AMPUL.NEB NEB SCH ×3 (07:32→23:15)
[2017-05-09] MEDS: ACETYLCYSTEINE 20% SOLN 800 MG/4 ML VIAL NEB SCH ×3 (07:32→23:15)
[2017-05-09] MEDS: FAMOTIDINE/PF INJ 20 MG/2 ML VIAL IV SCH ×2 (08:33→21:18)
[2017-05-09] MEDS: ACIDOPHILUS/BULGARICUS 1 EACH TAB.CHEW PO SCH ×3 (08:34→16:37)
[2017-05-09] MEDS: Z GUARD REMEDY 4 OZ OINT TP SCH (08:34)
[2017-05-09] MEDS: predniSONE 20 MG TABLET PO SCH (08:34)
[2017-05-09] MEDS: SERTRALINE HCL 50 MG TABLET PO SCH (08:34)
--- NOTE | 2017-05-09 08:35 | NUR ---
RN NOTES RT RD AT BEDSIDE, PT OFF BIPAP PLACED ON 15L NRB MASK SATING 100% AT THIS TIME
[2017-05-09] MEDS: BOOST PLUS FOOD-VANILLA 237 ML BOX PO SCH ×3 (08:38→17:32)
[2017-05-09] MEDS: CLOTRIMAZOLE 1% 15 GM TUBE TP SCH ×2 (08:38→16:38)
[2017-05-09] MEDS: VANCOMYCIN 0.75 GM in IV D5W 250 ML IV SCH ×2 (09:21→21:19)
--- NOTE | 2017-05-09 10:14 | NUR ---
RN NOTES DR CHINCHILLA AT BEDSIDE, PT WAS SEEN AND EVALUATED. PT APPEARS CA;M AND RELAX RESTING COMFORTABLY ON 02@15LPM NRB. PLAN OF CARE DISCUSSED WITH PT. NO NEW ORDERS GIVEN AT THIS TIME.
[2017-05-09 16:10] LABS: ABG OXYGEN SATURATION 98.8 % (92.0-98.5); ABG PCO2 91.6 mmHg (35.0-45.0); ABG PH 7.334 (7.350-7.450); AaDO2 205.2 mmHg; COHb 0.3 % (0.5-1.5); MetHb 0.8 % (0.0-1.5); O2Hb 97.7 % (94.0-97.0); SITE, ABG Left Radial; VENT MODE, BG NON REBREATHER
[2017-05-09] MEDS: LEVOFLOXACIN 500 MG /D5W 100ML 500 MG in PREMIX 1 EA IV SCH (16:33)
--- NOTE | 2017-05-09 17:00 | NUR ---
RN NOTES ABD DONE. RT AT BEDSIDE PLACED PT ON SIMPLE MASK, PT REFUSED. PT VERBALIZED SHE'S FEELING MUCH BETTER WITH NRB MASK. PLACED PT BACK ON NRB
--- NOTE | 2017-05-09 18:49 | NUR ---
RN NOTES PT RESTING IN BED COMFORTABLY ON 15L NRB, NO ACUTE CHANGE IN CONDITION. ATE 75% OF HER DINNER. ALL DUE MEDS GIVEN, NEEDS ATTENDED AND MET. KEPT COMFORTABLE, RENDERED PM CARE. ENDORSED TO ROSANNA PALENCIA FOR CONTINUITY OF CARE
--- NOTE | 2017-05-09 19:30 | NUR ---
RN INITIAL NOTES RECEIVED PT AWAKE ON BED, A/OX4. ON 15L NON-REBREATHER, SATURATING WELL. PT DENIES ANY PAIN. CURRENTLY SINUS TACH ON THE MONITOR, HR 100-110'S. PATIÑO CATH NOTED. LEFT FOREARM 22G, RIGHT FOREARM 20G IS FLUSHED AND PATENT, NO S/S OF INFILTRATION/INFECTION, DRESSING CDI. BED LOW AND LOCKED, SIDERAILS UP, CALL LIGHT WITHIN REACH. WILL MONITOR
[2017-05-09] MEDS: MIRTAZAPINE 15 MG TABLET PO SCH (21:18)
[2017-05-09] MEDS: MONTELUKAST SODIUM (10MG) 10 MG TABLET PO SCH (21:18)
[2017-05-09] MEDS: ENOXAPARIN SODIUM 40 MG/0.4 ML DISP.SYRIN SQ SCH (21:19)
--- NOTE | 2017-05-09 22:50 | NUR ---
RN NOTES PT ON BIPAP PER MD MISC. ORDERS, BIPAP SETTINGS AC 10, 50% FIO2, 20/8, TOLERATING WELL.
[2017-05-10] VITALS (33 sets, daily range): BP systolic 103–135; BP diastolic 63–100
[2017-05-10] MEDS: MEROPENEM 1 G in IV NS 0.9% 100 ML IV SCH ×3 (00:24→17:50)
[2017-05-10] MEDS: RACEPINEPHRINE HCL 2.25% NEB 0.5 ML VIAL.NEB IH SCH ×4 (01:10→19:53)
--- NOTE | 2017-05-10 06:30 | NUR ---
RN CLOSING NOTES PT REMAINS STABLE OF THE MOMENT. CURRENTLY STILL ON BIPAP. ALL DUE MEDS GIVEN, AM CARE PROVIDED. WILL ENDORSE EBTY TO AM RN
--- NOTE | 2017-05-10 07:10 | NUR ---
RN INITIAL NOTES RECEIVED PT AWAKE, A/OX4. ON BIPAP. NO RESPIRATORY DISTRESS NOTED. NO SOB NOTED. DENIES ANY PAIN. IV LINES IN PLACE. FLUSHED WITH NS. FC IN PLACE. NO SEDIMENTS NOR HEMATURIA NOTED. BLE ELEVATED. PT COMFORTABLE. CALL LIGHT WITHIN REACH. WILL MONITOR.
[2017-05-10] MEDS: ACETYLCYSTEINE 20% SOLN 800 MG/4 ML VIAL NEB SCH ×3 (08:13→23:30)
[2017-05-10] MEDS: IPRATROPIUM NEB FS 0.5 MG/2.5 ML AMPUL.NEB NEB SCH ×3 (08:13→23:30)
[2017-05-10] MEDS: BOOST PLUS FOOD-VANILLA 237 ML BOX PO SCH ×3 (08:31→17:50)
[2017-05-10] MEDS: FAMOTIDINE/PF INJ 20 MG/2 ML VIAL IV SCH ×2 (08:32→21:15)
[2017-05-10] MEDS: predniSONE 20 MG TABLET PO SCH (08:32)
[2017-05-10] MEDS: Z GUARD REMEDY 4 OZ OINT TP SCH (08:32)
[2017-05-10] MEDS: SERTRALINE HCL 50 MG TABLET PO SCH (08:32)
[2017-05-10] MEDS: CLOTRIMAZOLE 1% 15 GM TUBE TP SCH ×2 (08:32→16:19)
[2017-05-10] MEDS: ACIDOPHILUS/BULGARICUS 1 EACH TAB.CHEW PO SCH ×3 (08:32→16:18)
--- NOTE | 2017-05-10 09:10 | NUR ---
RN NOTES SEEN AND EXAMINED BY DR. CHINCHILLA,. AWARE OF CURRENT LAB VALUES AND CXR. NO ORDER AT THIS TIME.
[2017-05-10] MEDS ORDERED: ALPRAZOLAM 0.25 MG TABLET PO PRN (09:30)
[2017-05-10] MEDS: VANCOMYCIN 0.75 GM in IV D5W 250 ML IV SCH ×2 (10:03→21:15)
[2017-05-10 10:48] LABS: CALCIUM, SERUM 8.7 mg/dL (8.5-10.1); CHLORIDE 101 mmol/L (98-107); CREATININE 0.6 mg/dL (0.6-1.3); GLUCOSE 142 mg/dL (74-106); POTASSIUM 3.8 mmol/L (3.5-5.1); SODIUM SERUM 144 mmol/L (136-145); UREA NITROGEN, BLOOD 16 mg/dL (7-18)
[2017-05-10 11:01] LABS: CARBON DIOXIDE 47 mmol/L (21-32)
--- NOTE | 2017-05-10 12:45 | NUR ---
RN NOTES PT REQUESTED TO BE PLACED BACK TO BIPAP. RR 20S, 02 SAT 100%. HOB ELEVATED. WILL MONITOR.
--- NOTE | 2017-05-10 15:30 | NUR ---
RN NOTES SEEN AND EXAMINED BY DR. RIVERA. AWARE OF BMP RESULT, C02 47. TOLERATED NON-REBREATHER AT 15LPM FOR AT LEAST 3HRS. PT CURRENTLY ON BIPAP. KEPT HOB ELEVATED. KEPT COMFORTABLE. WILL MONITOR
[2017-05-10] MEDS: LEVOFLOXACIN 500 MG /D5W 100ML 500 MG in PREMIX 1 EA IV SCH (16:18)
--- NOTE | 2017-05-10 18:37 | NUR ---
RN CLOSING NOTES PT REMAINS STABLE. NO SIGNIFICANT CHANGE NOTED. PLACED ON NON-REBREATHER TOLERATED. KEPT HOB ELEVATED. KEPT CLEAN AND DRY. ASSISTED IN REPOSITIONING. TX ORDERED. ALL NEEDS ATTENDED AND MET. CALL LIGHT WITHIN REACH. WILL ENDORSE FOR CONTINUITY OF CARE.
--- NOTE | 2017-05-10 19:30 | NUR ---
RN INITIAL NOTES RECEIVED PT AWAKE ON BED, A/OX4. ON 15L NON-REBREATHER, SATURATING WELL. PT DENIES ANY PAIN. CURRENTLY SINUS TACH ON THE MONITOR, HR 100-120'S. PATIÑO CATH NOTED. LEFT FOREARM 22G, RIGHT FOREARM 20G IS FLUSHED AND PATENT, NO S/S OF INFILTRATION/INFECTION, DRESSING CDI. BED LOW AND LOCKED, SIDERAILS UP, CALL LIGHT WITHIN REACH. WILL MONITOR
--- NOTE | 2017-05-10 20:00 | NUR ---
RN NOTES PT BACK ON BIPAP PER PT REQUEST. SETTINGS AC 10, 50% FIO2, 20/8
--- NOTE | 2017-05-10 20:54 | NUR ---
PT AWAKE ALERT ON BIPAP. TOLERATING SETTINGS. NO DISTRESS. BIPAP ALARMS SET AND AUDIBLE. AMBU BAG AT BEDSIDE. WILL CONTINUE TO MONITOR. Addendum: 05/10/17 at 2057 by JUNIOR HAWK RT Amended: Links added.
[2017-05-10] MEDS: MONTELUKAST SODIUM (10MG) 10 MG TABLET PO SCH (21:15)
[2017-05-10] MEDS: MIRTAZAPINE 15 MG TABLET PO SCH (21:15)
[2017-05-10] MEDS: ENOXAPARIN SODIUM 40 MG/0.4 ML DISP.SYRIN SQ SCH (21:16)
[2017-05-11] VITALS (30 sets, daily range): BP systolic 94–150; BP diastolic 29–87
[2017-05-11] MEDS: MEROPENEM 1 G in IV NS 0.9% 100 ML IV SCH ×3 (00:42→17:20)
[2017-05-11] MEDS: RACEPINEPHRINE HCL 2.25% NEB 0.5 ML VIAL.NEB IH SCH ×4 (01:29→19:27)
[2017-05-11 05:48] LABS: CALCIUM, SERUM 8.9 mg/dL (8.5-10.1); CHLORIDE 102 mmol/L (98-107); CREATININE 0.5 mg/dL (0.6-1.3); GLUCOSE 100 mg/dL (74-106); POTASSIUM 4.2 mmol/L (3.5-5.1); SODIUM SERUM 146 mmol/L (136-145); UREA NITROGEN, BLOOD 14 mg/dL (7-18)
[2017-05-11 06:03] LABS: CARBON DIOXIDE 51 mmol/L (21-32)
[2017-05-11] MEDS: IV NS 0.9% 250 ML IV PRN (06:24)
--- NOTE | 2017-05-11 06:30 | NUR ---
RN CLOSING NOTES PT REMAINS STABLE OF THE MOMENT. CURRENTLY STILL ON BIPAP. ALL DUE MEDS GIVEN, AM CARE PROVIDED. WILL ENDORSE BETY TO AM RN Addendum: 05/11/17 at 0707 by ROSANNA MCCANN RN DISREGARD PREVIOUS NOTE. PT HAS BEEN ON 15L NON-REBREATHER SINCE MIDNIGHT UNTIL NOW.
--- NOTE | 2017-05-11 07:10 | NUR ---
RN INITIAL NOTES RECEIVED PT ASLEEP, EASY TO AROUSE. ON NON-REBREATHER. NO RESPIRATORY DISTRESS NOTED. NO SOB NOTED. DENIES ANY PAIN. IV LINES IN PLACE. FLUSHED WITH NS. FC IN PLACE. WILL MONITOR FOR OUTPUT. BLE ELEVATED. PT COMFORTABLE. CALL LIGHT WITHIN REACH. WILL MONITOR.
[2017-05-11] MEDS: ACETYLCYSTEINE 20% SOLN 800 MG/4 ML VIAL NEB SCH ×3 (07:34→23:30)
[2017-05-11] MEDS: IPRATROPIUM NEB FS 0.5 MG/2.5 ML AMPUL.NEB NEB SCH ×3 (07:34→23:30)
[2017-05-11] MEDS: FAMOTIDINE/PF INJ 20 MG/2 ML VIAL IV SCH ×2 (08:22→21:40)
[2017-05-11] MEDS: SERTRALINE HCL 50 MG TABLET PO SCH (08:22)
[2017-05-11] MEDS: ACIDOPHILUS/BULGARICUS 1 EACH TAB.CHEW PO SCH ×3 (08:22→17:20)
[2017-05-11] MEDS: predniSONE 20 MG TABLET PO SCH (08:22)
[2017-05-11] MEDS: BOOST PLUS FOOD-VANILLA 237 ML BOX PO SCH ×3 (08:22→17:20)
[2017-05-11] MEDS: Z GUARD REMEDY 4 OZ OINT TP SCH (08:23)
[2017-05-11] MEDS: CLOTRIMAZOLE 1% 15 GM TUBE TP SCH ×2 (08:23→17:20)
--- NOTE | 2017-05-11 09:05 | NUR ---
RN NOTES SEEN AND EXAMINED BY DR. RIVERA.PT ON NON-REBREATHER AT 15LPM SINCE MIDNIGHT. NO RESPIRATORY DISTRESS NOTED. NO SOB NOTED. DENIES ANY PAIN. HOB ELEVATED. RR 20-30S, 02 SAT 98-100%. MD ORDERED PLACE PT ON SIMPLE MASK AT 6LPM. BIPAP PRN FOR 02 SAT 87%. PT AWARE. WILL PLACE ON SIMPLE MASK AT 6LPM. WILL CLOSELY MONITOR.
--- NOTE | 2017-05-11 09:18 | NUR ---
RN NOTES SEEN AND EXAMINED BY DR. CHINCHILLA. AWARE OF BMP RESULT: SODIUM 146,C02 51 AND CXR RESULT. ON SIMPLE MASK AT 6LPM PER DR. RIVERA. HOB ELEVATED. NO SOB NOTED. ORDERED LABS IN AM.
[2017-05-11] MEDS: VANCOMYCIN 0.75 GM in IV D5W 250 ML IV SCH ×2 (09:45→21:39)
--- NOTE | 2017-05-11 11:00 | NUR ---
RN NOTES PT REQUESTED TO BE ON BIPAP. C/O SOB. O2 SAT 92%, RR 30, HR 80. HOB ELEVATED. PLACED ON BIPAP. WILL CONTINUE TO MONITOR. WILL TRY SIMPLE MASK AT 6LPM IN A BIT. Addendum: 05/11/17 at 1345 by FROILAN LAMAS RN 1200 PT PLACED ON NON-REBREATHER. 02 SAT 100%, RR 30. NO SIGNS OF RESPIRATORY DISTRESS. NO SOB NOTED. WILL MONITOR. 1330 PT COMFOTABLE. NO RESPIRATORY DISTRESS NOTED. NO SOB NOTED. BACK ON MASK AT 6LPM. WILL CONTINUE TO MONITOR. Addendum: 05/11/17 at 1357 by FROILAN LAMAS RN 1350 PT PLACED BACK ON NON-REBREATHER. NOTED O2 SAT 86%, RR 35, HR 125. PT C/O SOB, AGITATED. DR. RIVERA IN THE UNIT AWARE. ORDERED ABG. NOTED AND CARRIED OUT Addendum: 05/11/17 at 1442 by FROILAN LAMAS RN 1430 ABG RESULT RELAYED TO DR. RIVERA. PT PLACED ON VENTURI MASK AT 50%. WILL CLOSELY MONITOR
[2017-05-11 14:56] LABS: ABG BASE EXCESS 23.5 mmol/L; ABG OXYGEN SATURATION 98.6 % (92.0-98.5); ABG PCO2 100.7 mmHg (35.0-45.0); ABG PH 7.346 (7.350-7.450); ABG PO2 178.5 mmHg (75.0-100.0); AaDO2 286.2 mmHg; COHb 0.3 % (0.5-1.5); MetHb 0.7 % (0.0-1.5); O2Hb 97.6 % (94.0-97.0); SITE, ABG Right Radial; VENT MODE, BG NRB
[2017-05-11] MEDS: LEVOFLOXACIN 500 MG /D5W 100ML 500 MG in PREMIX 1 EA IV SCH (15:39)
--- NOTE | 2017-05-11 18:41 | NUR ---
RN CLOSING NOTES PT REMAINS STABLE. ON VENTURI MASK. DENIES SON. DENIES ANY PAIN. KEPT COMFORTABLE. ALL NEEDS ATTENDED AND MET. CALL LIGHT WITHIN REACH. WILL ENDORSE FOR CONTINUITY OF CARE.
--- NOTE | 2017-05-11 19:30 | NUR ---
RN INITIAL NOTES RECEIVED PT AWAKE ON BED, A/OX4. ON 50% VENTURI MASK, SATURATING > 90%. PT DENIES ANY PAIN. CURRENTLY SINUS TACH ON THE MONITOR, HR 100-110'S. PATIÑO CATH NOTED. LEFT FOREARM 22G, RIGHT FOREARM 20G IS FLUSHED AND PATENT, NO S/S OF INFILTRATION/INFECTION, DRESSING CDI. BED LOW AND LOCKED, SIDERAILS UP, CALL LIGHT WITHIN REACH. WILL MONITOR
--- NOTE | 2017-05-11 19:58 | NUR ---
PT RECEIVED ON VENTI MASK 50%. PT AWAKE ALERT. PT REQUESTED TO BE ON BIPAP DO TO SOB. TOLERATING SETTINGS. NO DISTRESS. BIPAP ALARMS SET AND AUDIBLE. AMBU BAG AT BEDSIDE. WILL CONTINUE TO MONITOR. Addendum: 05/11/17 at 1959 by JUNIOR HAWK RT Amended: Links added.
--- NOTE | 2017-05-11 20:30 | NUR ---
RN NOTES PT BACK ON BIPAP PER PT REQUEST. SETTINGS AC 10, 50% FIO2, 20/8
[2017-05-11] MEDS: MONTELUKAST SODIUM (10MG) 10 MG TABLET PO SCH (21:40)
[2017-05-11] MEDS: ENOXAPARIN SODIUM 40 MG/0.4 ML DISP.SYRIN SQ SCH (21:40)
[2017-05-11] MEDS: MIRTAZAPINE 15 MG TABLET PO SCH (21:40)
[2017-05-12] VITALS (19 sets, daily range): BP systolic 103–138; BP diastolic 59–82
[2017-05-12] MEDS: MEROPENEM 1 G in IV NS 0.9% 100 ML IV SCH ×3 (00:37→17:04)
[2017-05-12] MEDS: RACEPINEPHRINE HCL 2.25% NEB 0.5 ML VIAL.NEB IH SCH ×4 (00:43→19:19)
[2017-05-12 04:42] LABS: BASOPHILS # (AUTO) 0.1 /CMM (0.0-0.2); BASOPHILS % (AUTO) 0.4 % (0.0-2.0); EOSINOPHILS # (AUTO) 0.6 /CMM (0.0-0.7); EOSINOPHILS % (AUTO) 3.7 % (0.0-6.0); HEMATOCRIT 30 % (33-45); HEMOGLOBIN 9.7 g/dL (11.5-14.8); LYMPHOCYTES # (AUTO) 1.6 /CMM (0.8-4.8); LYMPHOCYTES % (AUTO) 10.1 % (20.0-44.0); MEAN CORPUSCULAR HEMOGLOBIN 30 PG (26.0-33.0); MEAN CORPUSCULAR HGB CONC 33 g/dl (31.0-36.0); MEAN CORPUSCULAR VOLUME 90 fL (82-100); MONOCYTES # (AUTO) 0.9 /CMM (0.1-1.30); MONOCYTES % (AUTO) 5.6 % (2.0-12.0); NEUTROPHILS # (AUTO) 12.4 /CMM (1.8-8.9); NEUTROPHILS % (AUTO) 80.2 % (43.0-81.0); PLATELET COUNT (AUTO) 299 /CMM (150-450); RDW COEFFICIENT OF VARIATION 13.3 (11.5-15.0); RED BLOOD CELL COUNT(AUTO) 3.28 MIL/uL (4.0-5.2); WHITE BLOOD COUNT (AUTO) 15.4 K/uL (4.3-11.0)
[2017-05-12 05:01] LABS: CALCIUM, SERUM 8.8 mg/dL (8.5-10.1); CREATININE 0.5 mg/dL (0.6-1.3); POTASSIUM 4.2 mmol/L (3.5-5.1)
--- NOTE | 2017-05-12 06:30 | NUR ---
RN CLOSING NOTES PT REMAINS STABLE OF THE MOMENT. CURRENTLY STILL ON BIPAP. ALL DUE MEDS GIVEN, AM CARE PROVIDED. WILL ENDORSE BETY TO AM RN
--- NOTE | 2017-05-12 07:10 | NUR ---
RN INITIAL NOTES RECEIVED PT ASLEEP, EASY TO AROUSE. ON BIPAP. NO RESPIRATORY DISTRESS NOTED. NO SOB NOTED. DENIES ANY PAIN. IV LINES IN PLACE. FLUSHED WITH NS. FC IN PLACE. NO HEMATURIA NOR SEDIMENTS NOTED. BLE ELEVATED. PT COMFORTABLE. CALL LIGHT WITHIN REACH. WILL MONITOR.
[2017-05-12] MEDS: ACETYLCYSTEINE 20% SOLN 800 MG/4 ML VIAL NEB SCH ×3 (08:01→23:31)
[2017-05-12] MEDS: IPRATROPIUM NEB FS 0.5 MG/2.5 ML AMPUL.NEB NEB SCH ×3 (08:01→23:31)
[2017-05-12] MEDS: SERTRALINE HCL 50 MG TABLET PO SCH (08:20)
[2017-05-12] MEDS: BOOST PLUS FOOD-VANILLA 237 ML BOX PO SCH ×3 (08:20→17:04)
[2017-05-12] MEDS: ACIDOPHILUS/BULGARICUS 1 EACH TAB.CHEW PO SCH ×3 (08:20→16:32)
[2017-05-12] MEDS: predniSONE 20 MG TABLET PO SCH (08:20)
[2017-05-12] MEDS: FAMOTIDINE/PF INJ 20 MG/2 ML VIAL IV SCH ×2 (08:20→21:08)
[2017-05-12] MEDS: CLOTRIMAZOLE 1% 15 GM TUBE TP SCH ×2 (08:21→16:32)
[2017-05-12] MEDS: Z GUARD REMEDY 4 OZ OINT TP SCH (08:21)
--- NOTE | 2017-05-12 09:00 | NUR ---
RN NOTES SEEN AND EXAMINED BY DR RIVERA. AWARE OF CURRENT LAB VALUES, C02 47. PT TOLERATED BIPAP AT NIGHT. CURRENTLY ON VENTURI MASK AT 50%. NO SOB NOTED. DENIES ANY PAIN. HOB ELEVATED. WILL MONITOR.
[2017-05-12] MEDS: VANCOMYCIN 0.75 GM in IV D5W 250 ML IV SCH ×2 (09:24→21:08)
--- NOTE | 2017-05-12 09:25 | NUR ---
RN NOTES SEEN AND EXAMINED BY DR. CHINCHILLA. AWARE OF CURRENT LAB VALUES: WBC 15.4, HGB 9.7, HCT 30, PLATELET 299, C02 47. ON VENTURI MASK AT 50%. HOB ELEVATED. NO RESPIRATORY DISTRESS NOTED. RR 29, 0S SAT 97%. DENIES ANY PAIN. NO NEW ORDER.
[2017-05-12] MEDS: LOPERAMIDE HCL (2 MG CAP) 2 MG CAPSULE PO PRN (11:06)
--- NOTE | 2017-05-12 13:57 | NUR ---
RN NOTES PT TRANSFERRED TO ROOM 116-1. BEDSIDE REPORT GIVEN TO LILIYA PALENCIA. ALL PERTINENT INFO GIVEN. PT REMAINS A/OX4. DENIES SOB. DENIES PAIN. 0S SAT 92%, RR 26. ON VENTURI MASK AT 40%. IN STABLE CONDITION.
[2017-05-12] MEDS: LEVOFLOXACIN 500 MG /D5W 100ML 500 MG in PREMIX 1 EA IV SCH (15:28)
[2017-05-12] MEDS: ALPRAZOLAM 0.25 MG TABLET PO PRN (16:32)
--- NOTE | 2017-05-12 17:20 | NUR ---
JIE RN NOTE 1630: Spoke with Dr. Woodard;eg re: Xanax and obtained order to change dose to 0.125mg q8 PO, made patient aware. Verified with pharmacy and given as ordered. 1720: No any significant changes. Tolerated 12LPM of O2 via Venturi mask. 92% O2 sat.
[2017-05-12] MEDS ORDERED: ALPRAZOLAM 0.25 MG TABLET PO PRN (17:30)
[2017-05-12] MEDS: ENOXAPARIN SODIUM 40 MG/0.4 ML DISP.SYRIN SQ SCH (21:08)
[2017-05-12] MEDS: MONTELUKAST SODIUM (10MG) 10 MG TABLET PO SCH (21:08)
[2017-05-12] MEDS: MIRTAZAPINE 15 MG TABLET PO SCH (21:08)
--- NOTE | 2017-05-12 23:53 | NUR ---
RN NOTE ENDORSE CARE TO VIKKI RN FOR CONTINUITY OF CARE. PT REMAINS IN NO ACUTE DISTRESS IN BED. PT IS CURRENTLY ON NOC. BIPAP AND TOLERATING WELL. ALL NEEDS MET, ALL ORDERS CARRIED OUT.
[2017-05-13] VITALS (7 sets, daily range): BP systolic 101–125; BP diastolic 60–73
--- NOTE | 2017-05-13 | NUR ---
RECEIVED PATIENT IN BED, PATIENT IS A&O, VERY ANXIOUS, NST ON THE MONITORS, ON BIPAP 50% SAT. 98% VSS, AFEBRILE, NO DISTRESS NOTED, DENIES PAIN. CONTINUE TO MONITOR
[2017-05-13] MEDS: MEROPENEM 1 G in IV NS 0.9% 100 ML IV SCH ×3 (00:31→17:15)
[2017-05-13] MEDS: ALPRAZOLAM 0.25 MG TABLET PO PRN ×2 (00:32→09:38)
[2017-05-13] MEDS: RACEPINEPHRINE HCL 2.25% NEB 0.5 ML VIAL.NEB IH SCH ×4 (01:15→19:27)
[2017-05-13 06:44] LABS: BASOPHILS % (AUTO) 0.2 % (0.0-2.0); EOSINOPHILS # (AUTO) 0.9 /CMM (0.0-0.7); EOSINOPHILS % (AUTO) 6.2 % (0.0-6.0); HEMATOCRIT 30 % (33-45); LYMPHOCYTES # (AUTO) 1.5 /CMM (0.8-4.8); LYMPHOCYTES % (AUTO) 10.5 % (20.0-44.0); MEAN CORPUSCULAR HEMOGLOBIN 30 PG (26.0-33.0); MEAN CORPUSCULAR HGB CONC 33 g/dl (31.0-36.0); MEAN CORPUSCULAR VOLUME 90 fL (82-100); MONOCYTES # (AUTO) 0.9 /CMM (0.1-1.30); MONOCYTES % (AUTO) 6.2 % (2.0-12.0); NEUTROPHILS % (AUTO) 76.9 % (43.0-81.0); PLATELET COUNT (AUTO) 285 /CMM (150-450); RDW COEFFICIENT OF VARIATION 12.9 (11.5-15.0); RED BLOOD CELL COUNT(AUTO) 3.35 MIL/uL (4.0-5.2); WHITE BLOOD COUNT (AUTO) 14.3 K/uL (4.3-11.0)
--- NOTE | 2017-05-13 07:00 | NUR ---
RN NOTES RECEIVED PT ON BED, ASLEEP, EASY TO AROUSE. NO DISTRESS NOTED, ON BIPAP AT THIS TIME , ON TELE ST 103, R FA IV G 20 AND L FOREARM IV G 22 CDI, FLUSHED WITH NS. PATIÑO DRAINING TO GRAVITY WITH YELLOW URINE, B LE ELEVATED. CALL LIGHT WITHIN REACH. BED LOCKED AND IN LOWEST POSITION , SR UP x3, CONTINUE TO MONITOR PT CLOSELY AND NOTIFY MD FOR ANY SIGNIFICANT CHANGES.
[2017-05-13 07:04] LABS: CALCIUM, SERUM 8.5 mg/dL (8.5-10.1); CREATININE 0.5 mg/dL (0.6-1.3); POTASSIUM 3.5 mmol/L (3.5-5.1)
[2017-05-13] MEDS: ACETYLCYSTEINE 20% SOLN 800 MG/4 ML VIAL NEB SCH ×3 (08:25→22:56)
[2017-05-13] MEDS: IPRATROPIUM NEB FS 0.5 MG/2.5 ML AMPUL.NEB NEB SCH ×3 (08:25→22:56)
[2017-05-13] MEDS: SERTRALINE HCL 50 MG TABLET PO SCH (08:47)
[2017-05-13] MEDS: predniSONE 20 MG TABLET PO SCH (08:47)
[2017-05-13] MEDS: FAMOTIDINE/PF INJ 20 MG/2 ML VIAL IV SCH ×2 (08:48→21:55)
[2017-05-13] MEDS: ACIDOPHILUS/BULGARICUS 1 EACH TAB.CHEW PO SCH ×3 (08:48→17:15)
[2017-05-13] MEDS: CLOTRIMAZOLE 1% 15 GM TUBE TP SCH ×2 (08:56→17:17)
[2017-05-13] MEDS: Z GUARD REMEDY 4 OZ OINT TP SCH (08:56)
[2017-05-13] MEDS: BOOST PLUS FOOD-VANILLA 237 ML BOX PO SCH ×3 (09:40→17:16)
[2017-05-13] MEDS: VANCOMYCIN 0.75 GM in IV D5W 250 ML IV SCH ×2 (09:41→21:55)
--- NOTE | 2017-05-13 12:22 | NUR ---
PT TRIED ON VENTI-MASK AT 28% FIO2 @6LPM. PT DESATURATED TO 77%. PT PLACED ON 50% FIO2 VENTI-MASK AT 15LPM. ONCE PT SATURATION WENT UP TO 100%. VENTI-MASK TITRATED TO 35% AT 9LPM. PT COMPLAINED OF SOB. PT STATED, " I CANT FEEL THE AIR. I CANT BREATHE." PT PLACED ON 40% FIO2 @ 12LPM. PT IS RESTING COMFORTABLY. SPO2 AT 94%. Addendum: 05/13/17 at 1227 by FRANCES GIMENEZ RT Amended: Links added.
[2017-05-13] MEDS: LEVOFLOXACIN 500 MG /D5W 100ML 500 MG in PREMIX 1 EA IV SCH (15:43)
[2017-05-13 16:37] LABS: ABG BASE EXCESS 13.7 mmol/L; ABG OXYGEN SATURATION 93.3 % (92.0-98.5); ABG PCO2 57.7 mmHg (35.0-45.0); ABG PH 7.455 (7.350-7.450); ABG PO2 68.1 mmHg (75.0-100.0); AaDO2 114.4 mmHg; COHb 0.3 % (0.5-1.5); MetHb 0.6 % (0.0-1.5); O2Hb 92.5 % (94.0-97.0); SITE, ABG Right Radial; VENT MODE, BG VENTI-MASK
--- NOTE | 2017-05-13 18:00 | NUR ---
RN NOTES PT ON VENTI MASK AT 40% , O2 SAT 40%, NO SOB NOTED, ST ON TELE HR IN 110'S , PATIÑO WITH 1500 CC URINE OUTPUT ON THIS SHIFT, BMx1, SR UP x3, CALL LIGHT WITHIN EASY REACH, WILL ENDORSE TO LABORER YARD NURSE FOR BETY.
--- NOTE | 2017-05-13 19:30 | NUR ---
RN INITIAL NOTE RECEIVED PT IN NO ACUTE DISTRESS IN BED. PT IS A/O X 3 AND ABLE TO MAKE NEEDS KNOWN. PT IS ON O2 VIA VENTURI MASK AND TOLERATING WELL WITH O2 SAT @ 93%. PT HAS NOC BIPAP FOR SLEEPING. PT IS ON TELE WITH ST ON THE MONITOR. PT HAS F/C THAT IS CLEAN DRY INTACT AND PATENT WITH YELLOW URINE DRAINING. PT NOT C/O ANY SOB, DIFFICULTY BREATHING OR PAIN AT THIS TIME. PT HAS RFA 20G AND LFA 22G THAT IS CLEAN DRY INTACT AND PATENT WITH SALINE LOCK. BED IN LOW LOCK POSITION WITH RIALS UP X 2. CALL LIGHT WITHIN REACH AND ALL SAFETY MEASURES ENSURED AND CARRIED OUT. WILL CONTINUE TO MONITOR PT.
[2017-05-13] MEDS: ENOXAPARIN SODIUM 40 MG/0.4 ML DISP.SYRIN SQ SCH (21:55)
[2017-05-13] MEDS: MIRTAZAPINE 15 MG TABLET PO SCH (21:55)
[2017-05-13] MEDS: MONTELUKAST SODIUM (10MG) 10 MG TABLET PO SCH (21:55)
[2017-05-14] VITALS: BP 130/88
[2017-05-14] MEDS: RACEPINEPHRINE HCL 2.25% NEB 0.5 ML VIAL.NEB IH SCH ×4 (01:20→19:26)
[2017-05-14] MEDS: MEROPENEM 1 G in IV NS 0.9% 100 ML IV SCH ×3 (01:50→18:32)
[2017-05-14 04:00] VITALS: BP 114/82
--- NOTE | 2017-05-14 06:56 | NUR ---
RN CLOSING NOTE PT REMAINS IN NO ACUTE DISTRESS IN BED. PT DID NOT HAVE ANY SIGNIFICANT CHANGE IN CONDITION DURING SHIFT. ALL NEEDS MET, ALL ORDERS CARRIED OUT. WILL ENDORSE CARE TO AM RN FOR CONTINUITY OF CARE.
--- NOTE | 2017-05-14 07:05 | NUR ---
RN INITIAL NOTE PATIENT RECEIVED IN BED, AWAKE, ALERT AND ORIENTED. ABLE TO MAKE NEEDS KNOWN. NO S/S OF PAIN OR DISCOMFORT. PATIENT ON VENTURI MASK WITH FI02 OF 35, SATING WELL. NO S/S OF RESPIRATORY DISTRESS OR SOB. SINUS RHYTHM ON TELE MONITOR HR 112. SKIN IS WARM AND DRY TO TOUCH. IV SITE FLUSHED, PATENT. SAFETY PRECAUTIONS IMPLEMENTED, BED IN LOCKED, LOW POSITION WITH TWO SIDE RAILS UP. CALL LIGHT AND BELONGINGS WITHIN EASY REACH WILL CONTINUE TO MONITOR.
[2017-05-14 07:23] LABS: CALCIUM, SERUM 8.8 mg/dL (8.5-10.1); CREATININE 0.6 mg/dL (0.6-1.3)
[2017-05-14 08:00] VITALS: BP 129/73
[2017-05-14] MEDS: BOOST PLUS FOOD-VANILLA 237 ML BOX PO SCH ×3 (08:00→18:32)
[2017-05-14] MEDS: FAMOTIDINE/PF INJ 20 MG/2 ML VIAL IV SCH ×2 (08:47→21:12)
[2017-05-14] MEDS: predniSONE 20 MG TABLET PO SCH (08:47)
[2017-05-14] MEDS: ACIDOPHILUS/BULGARICUS 1 EACH TAB.CHEW PO SCH ×3 (08:47→17:41)
[2017-05-14] MEDS: SERTRALINE HCL 50 MG TABLET PO SCH (08:48)
[2017-05-14] MEDS: Z GUARD REMEDY 4 OZ OINT TP SCH (08:49)
[2017-05-14] MEDS: IPRATROPIUM NEB FS 0.5 MG/2.5 ML AMPUL.NEB NEB SCH ×3 (09:00→23:01)
[2017-05-14] MEDS: ACETYLCYSTEINE 20% SOLN 800 MG/4 ML VIAL NEB SCH ×3 (09:01→23:01)
[2017-05-14] MEDS: CLOTRIMAZOLE 1% 15 GM TUBE TP SCH ×2 (09:06→17:41)
[2017-05-14] MEDS: VANCOMYCIN 0.75 GM in IV D5W 250 ML IV SCH ×2 (11:33→21:17)
[2017-05-14 12:00] VITALS: BP 124/72
[2017-05-14 16:00] VITALS: BP 110/69
[2017-05-14] MEDS: LEVOFLOXACIN 500 MG /D5W 100ML 500 MG in PREMIX 1 EA IV SCH (17:41)
--- NOTE | 2017-05-14 19:00 | NUR ---
RN CLOSING NOTE CARRIED OUT ALL MD ORDERS, PATIENTS NEEDS ANTICIPATED, PATIENT KEPT CLEAN AND DRY. SAFETY PRECAUTIONS IN PLACE AT ALL TIMES. REPORT WILL BE GIVEN TO PM RN FOR BETY
[2017-05-14] MEDS: ALPRAZOLAM 0.25 MG TABLET PO PRN (19:10)
--- NOTE | 2017-05-14 19:30 | NUR ---
JIE RN INITIAL NOTES RECEIVED PATIENT AWAKE A/OX3, ABLE TO MAKE NEEDS KNOWN. PATIENT C/O SOB ON VENTURI MASK [id number] SPO2 92%. SKIN WARM AND DRY TO TOUCH. DENIES PAIN AT THIS TIME. ON TELE MONITOR ST 118. WITH F/C PATENT AND INTACT, DRAINING BY GRAVITY. HOB ELEVATED. SIDE RAILS UP AND LOCKED. BED KEPT AT LOWEST POSITION. CALL LIGHT KEPT WITHIN EASY REACH. WILL INFORM RT REGARDING SOB. WILL CONTINUE TO MONITOR.
[2017-05-14 20:00] VITALS: BP 104/66
--- NOTE | 2017-05-14 20:00 | NUR ---
JIE RN NOTES PATIENT PLACED ON BIPAP, PATIENT STATES SHE FEELS MUCH BETTER. SKIN WARM AND DRY TO TOUCH. WILL CONTINUE TO MONITOR.
[2017-05-14] MEDS: MONTELUKAST SODIUM (10MG) 10 MG TABLET PO SCH (21:12)
[2017-05-14] MEDS: MIRTAZAPINE 15 MG TABLET PO SCH (21:12)
[2017-05-14] MEDS: ENOXAPARIN SODIUM 40 MG/0.4 ML DISP.SYRIN SQ SCH (21:13)
--- NOTE | 2017-05-14 22:34 | NUR ---
JIE RN NOTES PATIENT AWAKE A/OX3, ON BIPAP, C/O SOB, DIAPHORETIC, SPO2 96%. OFFERED BREATHING TX, REFUSED BREATHING TX, STATES IT DOESN'T REALLY HELP. ASSISTED WITH RELAXATION TECHNIQUES. PATIENT STATES SHE FEELS WARM, PATIENT AFEBRILE. WILL LOOK FOR FAN.
--- NOTE | 2017-05-14 23:00 | NUR ---
JIE RN NOTES PLACED FAN IN FRONT OF PATIENT, PATIENT STATES SHE FEELS MUCH BETTER. WILL CONTINUE TO MONITOR.
--- NOTE | 2017-05-14 23:04 | NUR ---
PT REFUSED TX, NO RESP SISTRESS NOTED, TALHA INGRAM NOTIFIED Addendum: 05/14/17 at 2308 by JONO WYNN RT Amended: Links added.
[2017-05-15] VITALS: BP 135/88
--- NOTE | 2017-05-15 | NUR ---
JIE RN NOTES PATIENT SLEEPING COMFORTABLY. NO RESPIRATORY DISTRESS NOTED. WILL CONTINUE TO MONITOR.
[2017-05-15] MEDS: RACEPINEPHRINE HCL 2.25% NEB 0.5 ML VIAL.NEB IH SCH ×4 (01:30→19:09)
--- NOTE | 2017-05-15 01:30 | NUR ---
JIE RN NOTES PER RT, PATIENT REFUSED BREATHING TX. PATIENT SLEEPING COMFORTABLY. ON BIPAP. WILL CONTINUE TO MONITOR.
--- NOTE | 2017-05-15 01:40 | NUR ---
PT REFUSED TX, TALHA INGRAM NOTIFIED, NO RESP DISTRESS NOTED Addendum: 05/15/17 at 0200 by JONO WYNN RT Amended: Links added.
[2017-05-15] MEDS: MEROPENEM 1 G in IV NS 0.9% 100 ML IV SCH ×3 (03:11→18:04)
[2017-05-15] MEDS: ALPRAZOLAM 0.25 MG TABLET PO PRN ×3 (03:13→21:58)
[2017-05-15 04:00] VITALS: BP 112/67
--- NOTE | 2017-05-15 07:29 | NUR ---
JIE RN CLOSING NOTES NO SIGNIFICANT CHANGES OVERNIGHT. ALL NEEDS ANTICIPATED AND MET. NO C/O SOB AT THIS TIME. PATIENT WITH BIPAP, SPO2 94%. KEPT CLEAN AND DRY. SIDE RAILS UP AND LOCKED. BED KEPT AT LOWEST POSITION. CALL LIGHT KEPT WITHIN EASY REACH. CONTINUITY OF CARE ENDORSED TO AM NURSE.
[2017-05-15 07:49] LABS: CALCIUM, SERUM 8.9 mg/dL (8.5-10.1); CREATININE 0.7 mg/dL (0.6-1.3); POTASSIUM 3.6 mmol/L (3.5-5.1)
[2017-05-15] MEDS: ACETYLCYSTEINE 20% SOLN 800 MG/4 ML VIAL NEB SCH ×3 (07:54→23:30)
[2017-05-15] MEDS: IPRATROPIUM NEB FS 0.5 MG/2.5 ML AMPUL.NEB NEB SCH ×3 (07:54→23:30)
[2017-05-15 08:00] VITALS: BP 120/75
[2017-05-15] MEDS: BOOST PLUS FOOD-VANILLA 237 ML BOX PO SCH ×3 (08:00→18:04)
[2017-05-15] MEDS: SERTRALINE HCL 50 MG TABLET PO SCH (08:53)
[2017-05-15] MEDS: FAMOTIDINE/PF INJ 20 MG/2 ML VIAL IV SCH ×2 (08:53→21:44)
[2017-05-15] MEDS: predniSONE 20 MG TABLET PO SCH (08:54)
[2017-05-15] MEDS: ACIDOPHILUS/BULGARICUS 1 EACH TAB.CHEW PO SCH ×3 (08:54→18:04)
[2017-05-15] MEDS: CLOTRIMAZOLE 1% 15 GM TUBE TP SCH ×2 (08:56→18:05)
[2017-05-15] MEDS: Z GUARD REMEDY 4 OZ OINT TP SCH (08:56)
[2017-05-15] MEDS: VANCOMYCIN 0.75 GM in IV D5W 250 ML IV SCH ×2 (11:30→21:59)
[2017-05-15 12:00] VITALS: BP 124/64
[2017-05-15 16:00] VITALS: BP 142/74
[2017-05-15] MEDS: LEVOFLOXACIN 500 MG /D5W 100ML 500 MG in PREMIX 1 EA IV SCH (18:32)
--- NOTE | 2017-05-15 19:00 | NUR ---
RN NOTE NO SIGNIFICANT CHANGES THROUGH SHIFT. ALL NEEDS ANTICIPATED AND MET. NO C/O SOB AT THIS TIME. PATIENT WITH VENTURI MASK SATURATION 94%. KEPT CLEAN AND DRY. SIDE RAILS UP AND LOCKED. BED KEPT AT LOWEST POSITION. CALL LIGHT KEPT WITHIN EASY REACH. CONTINUITY OF CARE ENDORSED TO AM NURSE.
--- NOTE | 2017-05-15 19:05 | NUR ---
RN NOTES RECEIVED REPORT FROM DAVE PALENCIA. PATIENT A/A/O X3, ABLE TO MAKE NEEDS KNOWN. BREATHING EVEN & UNLABORED, ON VENTURI MASK W/ O2 10L. TOLERATING WELL. DENIES SOB OR DIFFICULTY BREATHING. ON TELE SINUS TACH IN THE 100S. LEFT FOREARM IV #22 PATENT W/ DRESSING CDI, ON SALINE LOCK. PATIÑO CATH INTACT & DRAINING YELLOW URINE. DENIES ANY PAIN OR DISCOMFORT @ THIS TIME. SAFETY MEASURES IN PLACE W/ SIDE RAILS UP, BED LOCKED IN LOWEST POSITION & CALL LIGHT WITHIN REACH. WILL CONTINUE TO MONITOR.
[2017-05-15 20:00] VITALS: BP 113/73
[2017-05-15] MEDS: ENOXAPARIN SODIUM 40 MG/0.4 ML DISP.SYRIN SQ SCH (21:43)
[2017-05-15] MEDS: MONTELUKAST SODIUM (10MG) 10 MG TABLET PO SCH (21:44)
[2017-05-15] MEDS: MIRTAZAPINE 15 MG TABLET PO SCH (21:44)
--- NOTE | 2017-05-15 23:00 | NUR ---
RN NOTES IV ON LEFT FOREARM DC'D D/T INFILTRATION. ARM ELEVATED. NEW IV #22 ON LEFT HAND APPLIED.
[2017-05-16] VITALS: BP 132/83
[2017-05-16] MEDS: RACEPINEPHRINE HCL 2.25% NEB 0.5 ML VIAL.NEB IH SCH ×4 (01:30→20:16)
[2017-05-16] MEDS: MEROPENEM 1 G in IV NS 0.9% 100 ML IV SCH ×2 (01:36→08:30)
[2017-05-16 04:00] VITALS: BP 149/83
--- NOTE | 2017-05-16 06:53 | NUR ---
RN CLOSING NOTES PATIENT RESTING COMFORTABLY IN BED. BIPAP ON @ THIS TIME & TOLERATING WELL. NO ACUTE RESPIRATORY DISTRESS DURING SHIFT, NO SIGNIFICANT CHANGES. IV SITE CHANGED & ALL DUE MEDS GIVEN. KEPT CLEAN & DRY. WILL ENDORSE BETY TO AM RN.
--- NOTE | 2017-05-16 07:44 | NUR ---
RN NOTES RECEIVED PT FROM POST HOLE DIGGING MACHINE OPERATOR IN STABLE CONDITION, A&OX3, ON BIPAP, NO SOB OR DISTRESS, SR ON THE MONITOR HR 102. L HAND 22 GAUGE IV SITE DRY AND INTACT. BED LOCKED AND IN LOWEST POSITION, CALL LIGHT WITHIN REACH, SIDE RAILS UPX3, WILL CONT TO MONITOR.
[2017-05-16] MEDS: ACETYLCYSTEINE 20% SOLN 800 MG/4 ML VIAL NEB SCH ×3 (07:51→23:34)
[2017-05-16] MEDS: IPRATROPIUM NEB FS 0.5 MG/2.5 ML AMPUL.NEB NEB SCH ×3 (07:51→23:34)
[2017-05-16 08:00] VITALS: BP 143/99
[2017-05-16] MEDS: FAMOTIDINE/PF INJ 20 MG/2 ML VIAL IV SCH ×2 (08:30→21:07)
[2017-05-16] MEDS: ACIDOPHILUS/BULGARICUS 1 EACH TAB.CHEW PO SCH ×3 (08:30→17:03)
[2017-05-16] MEDS: predniSONE 20 MG TABLET PO SCH (08:30)
[2017-05-16] MEDS: SERTRALINE HCL 50 MG TABLET PO SCH (08:30)
[2017-05-16] MEDS: Z GUARD REMEDY 2 OZ OINT TP PRN ×2 (08:31→10:46)
[2017-05-16] MEDS: BOOST PLUS FOOD-VANILLA 237 ML BOX PO SCH ×3 (08:32→17:03)
[2017-05-16] MEDS: CLOTRIMAZOLE 1% 15 GM TUBE TP SCH ×2 (08:32→17:04)
[2017-05-16] MEDS: Z GUARD REMEDY 4 OZ OINT TP SCH (09:00)
[2017-05-16] MEDS: VANCOMYCIN 0.75 GM in IV D5W 250 ML IV SCH (10:46)
--- NOTE | 2017-05-16 11:20 | NUR ---
RN NOTES PT ON NC BEGAN FEELING SOB AND ANXIOUS, BACK ON VENTURI MASK. DR RIVERA AWARE.
[2017-05-16 12:00] VITALS: BP 137/83
[2017-05-16] MEDS: ALPRAZOLAM 0.25 MG TABLET PO PRN ×2 (12:09→20:22)
[2017-05-16 12:22] LABS: ABG BASE EXCESS 12.3 mmol/L; ABG OXYGEN SATURATION 93.9 % (92.0-98.5); ABG PCO2 60.5 mmHg (35.0-45.0); ABG PH 7.426 (7.350-7.450); ABG PO2 70.2 mmHg (75.0-100.0); AaDO2 181.8 mmHg; COHb 0.1 % (0.5-1.5); MetHb 0.5 % (0.0-1.5); O2Hb 93.3 % (94.0-97.0); SITE, ABG Left Radial
[2017-05-16 16:00] VITALS: BP 140/97
--- NOTE | 2017-05-16 18:36 | NUR ---
RN NOTES PT RESTING IN BED ON VENTURI MASK, NO SOB OR DISTRESS NOTED. NO SIGNIFICANT CHANGES THROUGHOUT THE SHIFT. PT CLEANED CHANGED AND REPOSITIONED, ALL NEEDS MET. BED LOCKED AND IN LOWEST POSITION, CALL LIGHT WITHIN REACH WILL ENDORSE TO ONCOMING SHIFT.
--- NOTE | 2017-05-16 19:30 | NUR ---
EXHIBIT BUILDER INITIAL NOTES RECEIVE PATIENT AWAKE A/OX3, C/O SOB. DENIES PAIN OR DISCOMFORT, WITH VENTURI MASK AT [id number], SPO2 89%. EXPLAINED TO PATIENT TO KEEP ON VENTURI MASK THROUGH THE NIGHT, PATIENT VERBALIZED UNDERSTANDING. ON TELE MONITOR ST 118, SKIN WARM AND DRY TO TOUCH. WITH F/C PATENT AND INTACT, DRAINING BY GRAVITY. HOB ELEVATED. SIDE RAILS UP AND LOCKED. BED KEPT AT LOWEST POSITION. CALL LIGHT KEPT WITHIN EASY REACH . WILL CONTINUE TO MONITOR.
[2017-05-16 20:00] VITALS: BP 138/77
[2017-05-16] MEDS: MONTELUKAST SODIUM (10MG) 10 MG TABLET PO SCH (21:07)
[2017-05-16] MEDS: MIRTAZAPINE 15 MG TABLET PO SCH (21:07)
[2017-05-16] MEDS: ENOXAPARIN SODIUM 40 MG/0.4 ML DISP.SYRIN SQ SCH (21:07)
[2017-05-16] MEDS: diphenhydrAMINE HCL 25 MG CAPSULE PO PRN (21:07)
[2017-05-17] VITALS: BP 146/83
[2017-05-17] MEDS: RACEPINEPHRINE HCL 2.25% NEB 0.5 ML VIAL.NEB IH SCH ×4 (01:25→19:52)
[2017-05-17 04:00] VITALS: BP 146/87
[2017-05-17] MEDS: IPRATROPIUM NEB FS 0.5 MG/2.5 ML AMPUL.NEB NEB SCH ×3 (07:28→23:30)
[2017-05-17] MEDS: ACETYLCYSTEINE 20% SOLN 800 MG/4 ML VIAL NEB SCH ×3 (07:30→23:30)
--- NOTE | 2017-05-17 07:41 | NUR ---
INITIAL INFRASTRUCTURE ANALYST NOTE RCVD PT AWAKE AND ALERT SHOWING NO S/O DISTRESS OR C/O PAIN. ST ON TELE. TOLERATING O2 VIA VENTURI MASK. PATIÑO IN PLACE DRAINING YELLOW URINE. IV SITE C/D/I/PATENT. NO S/O INFILTRATION/PHLEBITIS OBSERVED UPON FLUSHING. PT REPORTED HAVING DEVELOPED A RASH IN THE LAST 2 DAYS. PT HAS PATCHES OF PINK RASH THROUGHOUT HER BODY SOURCE UNKNOWN. WILL CONTINUE TO MONITOR PT FOR SAFETY AND COMFORT. CALL LIGHT WITHIN REACH. BED IN LOW AND LOCKED POSITION.
--- NOTE | 2017-05-17 07:52 | NUR ---
SLIP COVER ESTIMATOR CLOSING NOTES PATIENT TOLERATED VENTURI MASK FIO2 35% THROUGH OUT THE NIGHT. STATES SHES FEELING BETTER. ALL NEEDS ANTICIPATED AND MET. KEPT CLEAN AND DRY. WOUND TX DONE ORDERED. ACTIVITY ENCOURAGED. SIDE RAILS UP AND LOCKED. BED KEPT AT LOWEST POSITION. CALL LIGHT KEPT WITHIN EASY REACH. CONTINUITY OF CARE ENDORSED TO AM NURSE.
[2017-05-17 08:00] VITALS: BP 115/80
[2017-05-17] MEDS: BOOST PLUS FOOD-VANILLA 237 ML BOX PO SCH ×3 (08:42→17:53)
[2017-05-17] MEDS: SERTRALINE HCL 50 MG TABLET PO SCH (08:43)
[2017-05-17] MEDS: FAMOTIDINE/PF INJ 20 MG/2 ML VIAL IV SCH ×2 (08:43→21:16)
[2017-05-17] MEDS: predniSONE 20 MG TABLET PO SCH (08:43)
[2017-05-17] MEDS: ACIDOPHILUS/BULGARICUS 1 EACH TAB.CHEW PO SCH ×3 (08:43→16:29)
[2017-05-17] MEDS: CLOTRIMAZOLE 1% 15 GM TUBE TP SCH ×2 (08:44→16:31)
[2017-05-17] MEDS: Z GUARD REMEDY 4 OZ OINT TP SCH (08:44)
[2017-05-17] MEDS: diphenhydrAMINE HCL 25 MG CAPSULE PO PRN ×2 (08:51→22:29)
[2017-05-17] MEDS: LOPERAMIDE HCL (2 MG CAP) 2 MG CAPSULE PO PRN (10:44)
[2017-05-17] MEDS: ALPRAZOLAM 0.25 MG TABLET PO PRN ×2 (10:44→21:17)
[2017-05-17 12:00] VITALS: BP_SYST 115; BP_SYST 128; BP_DIAS 80; BP_DIAS 90
--- NOTE | 2017-05-17 12:06 | NUR ---
BILLPOSTER NOTE DR. CHINCHILLA IN UNIT UPDATED ON PT'S CONDITION AND INFORMED OF PT'S RASH. HE BELIEVES IT MIGHT BE THE MEREPENEM. HE RECOMMENDED TO TRANSITION PT TO NC DURING THE DAY. PT CURRENTLY ON VENTURI MASK. WILL COMMUNICATE WITH RT.
[2017-05-17 16:00] VITALS: BP 126/76
--- NOTE | 2017-05-17 16:57 | NUR ---
ARMATURE REPAIRER NOTE PT ON NC TOLERATING WELL. JAKUB, RT TITRATED O2 FROM VENTURI MASK. PT'S SATURATION TO BE KEPT BETWEEN 88-90% PER DR. CHINCHILLA. WILL CONTINUE TO MONITOR.
--- NOTE | 2017-05-17 18:58 | NUR ---
KEEL PRESS OPERATOR NOTE PT REMAINS STABLE TOLERATING O2 VIA NC. PT'S CARE WILL BE ENDORSED TO CORK SORTER RN FOR CONTINUITY OF CARE. BED IN LOW AND LOCKED POSITION. CALL LIGHT WITHIN REACH.
--- NOTE | 2017-05-17 19:30 | NUR ---
CORPORATE SAFETY DIRECTOR INITIAL NOTES RECEIVED PATIENT AWAKE A/OX4, ABLE TO MAKE NEEDS KNOWN, ON 4LPMO2 VIA NC, SPO2 92%. PATIENT STATES SHE'S FEELING MUCH BETTER. ON TELE MONITOR ST. HOB ELEVATED. F/C PATENT AND INTACT, DRAINING BY GRAVITY . SIDE RAILS UP AND LOCKED. BED KEPT AT LOWEST POSITION. CALL LIGHT KEPT WITHIN EASY REACH. WILL CONTINUE TO MONITOR.
[2017-05-17 20:00] VITALS: BP_SYST 135; BP_SYST 143; BP_DIAS 81; BP_DIAS 96
[2017-05-17] MEDS: MIRTAZAPINE 15 MG TABLET PO SCH (21:16)
[2017-05-17] MEDS: MONTELUKAST SODIUM (10MG) 10 MG TABLET PO SCH (21:16)
[2017-05-17] MEDS: ENOXAPARIN SODIUM 40 MG/0.4 ML DISP.SYRIN SQ SCH (21:17)
[2017-05-17] MEDS: CALAMINE 118 ML BOTTLE TP SCH (21:18)
--- NOTE | 2017-05-17 21:35 | NUR ---
PT TOLERATING 4L NC , SPO2 92%. NO SOB OR RESPIRATORY DISTRESS NOTED, RN JUAN JOSE NOTIFIED.
[2017-05-18] VITALS: BP 143/96
[2017-05-18] MEDS: RACEPINEPHRINE HCL 2.25% NEB 0.5 ML VIAL.NEB IH SCH ×3 (01:00→12:46)
[2017-05-18 04:00] VITALS: BP 150/88
--- NOTE | 2017-05-18 04:53 | NUR ---
PATIENT WOKE UP C/O SOB, GASPING FOR AIR, ON 4LPM VIA NC. SPO2 88%. ENCOURAGED PATIENT TO UTILIZE RELAXATION AND BREATHING TECHNIQUES. SKIN WARM AND DRY TO TOUCH. RT NOTIFIED. WILL CONTINUE TO MONITOR.
[2017-05-18] MEDS: RACEPINEPHRINE HCL 2.25% NEB 0.5 ML VIAL.NEB IH PRN (05:00)
[2017-05-18] MEDS: ALPRAZOLAM 0.25 MG TABLET PO PRN (05:13)
--- NOTE | 2017-05-18 05:30 | NUR ---
PATIENT WITH BREATHING TX, STATES SHE FEELS MUCH. SPO2 99%. WILL CONTINUE TO MONITOR.
--- NOTE | 2017-05-18 07:36 | NUR ---
PLASTIC PARTS FABRICATOR CLOSING NOTES PATIENT TOLERATED 4LPMO2 VIA NC THROUGH THE NIGHT. SPO2 100% CURRENTLY. NO SOB AT THIS TIME. RESTING COMFORTABLY. F/C PATENT AND INTACT. KEPT CLEAN AND DRY. SIDE RAILS UP AND LOCKED. BED KEPT AT LOWEST POSITION. CALL LIGHT KEPT WITHIN EASY REACH. CONTINUITY OF CARE ENDORSED TO AM NURSE.
[2017-05-18 08:00] VITALS: BP 139/81
[2017-05-18] MEDS: BOOST PLUS FOOD-VANILLA 237 ML BOX PO SCH ×2 (08:00→13:00)
[2017-05-18] MEDS: CLOTRIMAZOLE 1% 15 GM TUBE TP SCH (09:00)
[2017-05-18] MEDS: CALAMINE 118 ML BOTTLE TP SCH (09:00)
[2017-05-18] MEDS: Z GUARD REMEDY 4 OZ OINT TP SCH (09:00)
[2017-05-18] MEDS: FAMOTIDINE/PF INJ 20 MG/2 ML VIAL IV SCH (09:33)
[2017-05-18] MEDS: predniSONE 20 MG TABLET PO SCH (09:33)
[2017-05-18] MEDS: SERTRALINE HCL 50 MG TABLET PO SCH (09:33)
[2017-05-18] MEDS: ACIDOPHILUS/BULGARICUS 1 EACH TAB.CHEW PO SCH ×3 (09:33→16:41)
[2017-05-18] MEDS: IPRATROPIUM NEB FS 0.5 MG/2.5 ML AMPUL.NEB NEB SCH ×2 (09:35→16:23)
[2017-05-18] MEDS: diphenhydrAMINE HCL 25 MG CAPSULE PO PRN (12:26)
[2017-05-18 13:36] VITALS: BP 139/81
--- NOTE | 2017-05-18 18:25 | NUR ---
pt d/c to [facility] in stable condition.all belongings and discharge instructions provided to patient.
== END 2017-05-18 17:31 | DRG 720 ==
LOC: ER 11:12 → TELE-TD 14:26 → TELE1 14:29 → TELE-TD 14:30 → ICU 04-12 22:55 → TELE-TD 04-25 21:41 → TELE1 04-27 09:49 → TELE-TD 04-27 09:58 → TELE1 04-30 09:44 → ICU 05-01 11:55 → TELE1 05-12 13:45 → TELE-TD 05-12 14:26 → TELE1 05-15 09:04 → MEDSG1 05-18 11:20
PROVIDERS: ADMIT Internal Medicine; ATTEND Internal Medicine
PROC: 5A09557 Assistance with Respiratory Ventilation, Greater than 96 Consecutive Hours, Continuous Positive Airway Pressure (ICD-10-PCS; principal; 2017-04-13)
PROC: 05H533Z Insertion of Infusion Device into Right Subclavian Vein, Percutaneous Approach (ICD-10-PCS; 2017-04-14)
DX: A41.9 Sepsis, unspecified organism (principal); J96.21 Acute and chronic respiratory failure with hypoxia; E43 Unspecified severe protein-calorie malnutrition; J15.6 Pneumonia due to other Gram-negative bacteria; J15.9 Unspecified bacterial pneumonia; J85.1 Abscess of lung with pneumonia; E87.2 Acidosis; Z99.81 Dependence on supplemental oxygen; D75.89 Other specified diseases of blood and blood-forming organs; J44.1 Chronic obstructive pulmonary disease with (acute) exacerbation; J44.0 Chronic obstructive pulmonary disease with (acute) lower respiratory infection; J96.22 Acute and chronic respiratory failure with hypercapnia; E83.42 Hypomagnesemia; E83.51 Hypocalcemia; E87.6 Hypokalemia; F17.210 Nicotine dependence, cigarettes, uncomplicated; F32.9 Major depressive disorder, single episode, unspecified; F41.9 Anxiety disorder, unspecified; E88.09 Other disorders of plasma-protein metabolism, not elsewhere classified; Z68.1 Body mass index [BMI] 19.9 or less, adult; L89.151 Pressure ulcer of sacral region, stage 1; I10 Essential (primary) hypertension; T36.0X5A Adverse effect of penicillins, initial encounter; R21 Rash and other nonspecific skin eruption; R65.20 Severe sepsis without septic shock
CPT/HCPCS: 31720; 36415; 36569; 36600; 71010-TC; 71250-TC; 71260-TC; 80048-TC; 80076-TC; 80202-TC; 81000-TC; 82803-TC; 83605-TC; 83735-TC; 84484-TC; 85025-TC; 85652-TC; 85730-TC; 86580-TC; 87040-TC; 87081-TC; 87086-TC; 93970-TC; 94003-TC; 94760-TC; 94762-TC; 94799-TC; 97110-TC; 97116-TC; 97530-TC; A4216; A4606; A6402; A6403; J1650; J1940; J1956; J2185; J2543; J2920; J2930; J3370; J3475; J3480; J3490; J7030; J7050; J7060; Q0163; Q9967; Z7610